=== PATIENT | male | born 1935 | race Caucasian/White ===

== ENCOUNTER 2016-12-07 10:41 | Inpatient (IN) | payer OTHER ==
--- NOTE | 2016-11-03 14:43 | PAT Medication Instructions ---
Service Date Nov 03, 2016. Current Home Medication List Ascorbic Acid (Vitamin C), 2,000 MG PO NOON Aspirin (Aspirin Ec), 81 MG PO QPM B-Complex Vitamins (Vitamin B Complex), 1 TAB PO NOON Coenzyme Q10 (Ubidecarenone) (Coq10), 100 MG PO NOON Cyanocobalamin (Vitamin B12 500MCG), 2,500 MCG PEG NOON Docosahexaenoic Acid (Dha), 1 TAB PEG NOON Dutasteride-Tamsulosin Hcl (Cristiana), 1 CAP PO QAM Fish Oil (Vienna-3), 2 TAB PO NOON Glyburide (Micronase), 5 MG PO BID Lutein (Lutein), 20 MG PO NOON Magnesium Oxide (Mag-Ox), 400 MG PO BID Metformin Hcl (Glucophage), 500 MG PO BID Multivitamin (Multivitamin), 1 TAB PO NOON Omeprazole (Prilosec), 20 MG PO QAM Ramipril (Ramipril), 1 CAP PO QAM Simvastatin (Zocor), 80 MG PO QPM Tadalafil (Cialis), 5 MG PO QPM [Folic Acid], 400 MCG PO NOON [Vitamin D], 400 UNITS PO NOON Medication Instructions For Your Scheduled Surgery - Hold the following medications 2 weeks prior to surgery: Fish Oil (Vienna-3), 2 TAB PO NOON Coenzyme Q10 (Ubidecarenone) (Coq10), 100 MG PO NOON Docosahexaenoic Acid (Dha), 1 TAB PEG NOON - Hold the following medications 48 hours prior to surgery: Metformin Hcl (Glucophage), 500 MG PO BID - Hold the following medications the morning of surgery: Ramipril (Ramipril), 1 CAP PO QAM Dutasteride-Tamsulosin Hcl (Cristiana), 1 CAP PO QAM Glyburide (Micronase), 5 MG PO BID [Folic Acid], 400 MCG PO NOON [Vitamin D], 400 UNITS PO NOON Multivitamin (Multivitamin), 1 TAB PO NOON Magnesium Oxide (Mag-Ox), 400 MG PO BID Ascorbic Acid (Vitamin C), 2,000 MG PO NOON B-Complex Vitamins (Vitamin B Complex), 1 TAB PO NOON Cyanocobalamin (Vitamin B12 500MCG), 2,500 MCG PEG NOON Lutein (Lutein), 20 MG PO NOON - Take the following medications the morning of surgery with a sip of water: Omeprazole (Prilosec), 20 MG PO QAM - Take the following medications as scheduled the night before surgery: Simvastatin (Zocor), 80 MG PO QPM Magnesium Oxide (Mag-Ox), 400 MG PO BID Aspirin (Aspirin Ec), 81 MG PO QPM (okay to continue per surgeon) Tadalafil (Cialis), 5 MG PO QPM If you have any questions please call us at [phone] (Pauline Topete PA-C) or [phone] or [phone]
--- NOTE | 2016-11-03 15:06 | DIAGNOSTIC IMAGING REPORT ---
CHEST 2 VIEWS ROUTINE CLINICAL HISTORY: Preoperative evaluation. COMPARISON STUDY: No previous studies for comparison. FINDINGS: Lung volumes are at the lower limits of normal. There is mild elevation of the right hemidiaphragm. There is no evidence of pulmonary edema. Mild cardiomegaly is noted. Left lower lung retrocardiac opacity likely reflects atelectasis or normal vessels. IMPRESSION: 1. No acute findings. 2. Mild cardiomegaly. 3. Mild elevation of the right hemidiaphragm. Electronically signed by: Juan Arriaga M.D. 11/03/2016 3:04 PM Dictated Date/Time: 11/03/2016 3:03 PM
[2016-11-03 15:15] LABS: BASO % 0.6 %; BASO ABS # 0.03 K/uL (0-0.2); COMPLETE YES; EOS % 4.4 %; HEMATOCRIT 35.6 % (42-52); LYMPH % 26.2 %; LYMPH ABS # 1.32 K/uL (1.2-3.4); MEAN CELL VOLUME 91.5 fL (80-100); MEAN CORPUSCULAR HEMOGLOBIN 33.2 pg (25-34); MEAN CORPUSCULAR HGB CONC 36.2 g/dl (32-36); MEAN PLATELET VOLUME 10.5 fL (7.4-10.4); MONO % 9.9 %; NEUT % 58.9 %; PLATELET COUNT 134 K/uL (130-400); RED BLOOD COUNT 3.89 M/uL (4.7-6.1); WHITE BLOOD COUNT 5.04 K/uL (4.8-10.8)
[2016-11-03 15:24] LABS: BUN/CREATININE RATIO 18.8 (10-20); CALCIUM 9.2 mg/dl (8.5-10.1); CREATININE 1.4 mg/dl (0.60-1.40); POTASSIUM 4.3 mmol/L (3.5-5.1)
[2016-11-03 15:25] LABS: URINE APPEARANCE CLEAR (CLEAR); URINE BILIRUBIN NEG (NEG); URINE COLOR YELLOW; URINE EPITHELIAL CELL AUTO 0-5 /lpf (0-5); URINE NITRITE NEG (NEG); URINE SPECIFIC GRAVITY 1.016 (1.000-1.030); UROBILINOGEN NEG (NEG); ZZUR CULT IF INDIC CLEAN CATCH NO
[2016-11-03 15:26] LABS: PROTHROMBIN TIME (PATIENT) 10.9 SECONDS (9.0-12.0)
[2016-11-03 15:32] LABS: MANUAL MICROSCOPIC REQUIRED? NO; REVIEW REQ? NO
[2016-11-04 05:58] LABS: ESTIMATED AVERAGE GLUCOSE 131 mg/dl; HA1C FLAG Normal (Normal)
--- NOTE | 2016-12-04 11:43 | HISTORY & PHYSICAL EXAMINATION ---
DATE OF ADMISSION: 12/07/2016 CHIEF COMPLAINT: Left knee pain. HISTORY OF PRESENT ILLNESS: Oscar is a 79-year-old male with a multiple year history of pain in his left knee. He rates his pain an 8/10. He has pain with his daily activities. He has limited standing and walking tolerance. Pain is worse with weightbearing. The patient has had injections and Tylenol without relief. He has failed conservative treatment and is scheduled for a left knee replacement. PAST MEDICAL HISTORY: Diabetes with an A1c 5.9, osteoarthritis, acid reflux, chronic kidney disease. He denies heart disease or DVT. PAST SURGICAL HISTORY: Cholecystectomy, hernia repair, partial thyroidectomy. SOCIAL HISTORY: The patient denies alcohol or tobacco use. He lives in a single story home. He is and is retired. FAMILY HISTORY: Negative for DVT. MEDICATIONS: Aspirin 81 mg, simvastatin 80 mg, omeprazole 20 mg, metformin 500 mg b.i.d., Cristiana 0.5/0.4 mg, mag oxide 400 mg b.i.d., ramipril 2.5 mg, glyburide 5 mg, Cialis 5 mg, multivitamin, vitamin C, vitamin D, vitamin B complex, omega 3 fish oil, Lutein, Co-Q 10, folic acid. ALLERGIES: None. REVIEW OF SYSTEMS: See HPI. Ten other systems reviewed, all negative. PHYSICAL EXAMINATION: VITAL SIGNS: Height 5 foot 11, weight 218 pounds, BMI is 30. GENERAL: This is a well-developed, well-nourished male who is alert and oriented x3. Mood and affect are appropriate. HEAD, EYES, EARS, NOSE, AND THROAT: Normocephalic, atraumatic. Mucous membranes are moist and intact. NECK: Supple without lymphadenopathy. HEART: Regular rate and rhythm without murmurs, rubs or gallops. LUNGS: Clear to auscultation without wheezes or rhonchi. ABDOMEN: Soft and nontender. Bowel sounds are equal and active. EXTREMITIES: No ecchymosis, redness or warmth. He has neutral alignment. Range of motion is from 5-115 degrees with +1 laxity. He is neurovascularly intact with +5/5 strength. X-RAY EXAMINATION: AP and lateral views show joint space narrowing and osteophyte formation. IMPRESSION: Degenerative joint disease left knee. PLAN: The patient will be admitted for a left total knee arthroplasty. We will plan on aspirin for DVT prophylaxis. The patient is going to [facility] for outpatient physical therapy.
[~2016-12-07] VITALS: Ht 180.3 cm; Wt 98.4 kg
[2016-12-07] VITALS (7 sets, daily range): BP systolic 117–148; BP diastolic 64–79; PULSE 49–78; TEMP 36.5–36.9; O2SAT 97–99; Ht 180.3 cm; Wt 98.4 kg
[~2016-12-07 10:41] MED LIST: ACETAMINOPHEN 500 MG TAB PO SCH; ASCO10003 PO; ASPI81TA28 PO; B-COTAB18 PO; BUPIVACAINE 0.5 % 5 MG/1 ML PF 10ML VIAL ONE; BUPIVACAINE/EPINEPHRINE 0.25% 1:200,000 30 ML VIAL ONE; CEFAZOLIN 2000 MG/60 ML D5W 60 ML IV SCH; COEN100C7 PO; CYAN500T13 PEG; CeleBREX 200 MG CAP PO SCH; DOCO1CAP10 PEG; DUTACAP PO; FAMOTIDINE 20 MG TAB PO SCH; FOLIC ACID PO; GABAPENTIN 300 MG CAP PO SCH; GLC/500 PO; GLYB5TAB8 PO; LACTATED RINGER'S 1000ML 1,000 ML IV SCH; LUTE20TA PO; MAGN400T6 PO; METOCLOPRAMIDE HCL 10 MG TAB PO SCH; MULT-506 PO; OMEG10007 PO; OXYCODONE HCL 10 MG TABCR (OXYCONTIN) PO SCH; POLYMYXIN B SULFATE 100,000 UNITS in NSS 100ML IR SCH; PRLSR20 PO; RAMI2.5C PO; ROPIVACAINE 5MG/ML 30 ML 150 MG, BUPIVACAINE/EPINEPHR 0.5% MPF 30 ML, KETOROLAC TROMETH... INFIL SCH; SIMV80TA2 PO; TADA10TA PO; TRAMADOL HCL 50 MG TAB PO SCH; VANCOMYCIN INJ 400 MG in NSS 100ML IR SCH; VITAMIN D PO
[2016-12-07] MEDS ORDERED: HYDROmorphone INJ 2 MG/ML SYR/VIAL IV PRN (11:15)
[2016-12-07] MEDS ORDERED: LABETALOL HCL IV 5 MG/ML 20ML IV PRN (11:15)
[2016-12-07] MEDS ORDERED: EpHEDrine SULFATE INJ 50 MG/ML AMP IV PRN (11:15)
[2016-12-07] MEDS ORDERED: NALOXONE HCL 0.4 MG/1 ML VIAL/CARP IV PRN (11:15)
[2016-12-07] MEDS ORDERED: ONDANSETRON INJ 2 MG/ML 2 ML VIAL IV PRN (11:15)
[2016-12-07] MEDS ORDERED: FENTANYL CITRATE INJ 50 MCG/1 ML 2 ML VIAL IV PRN (11:15)
[2016-12-07] MEDS ORDERED: MEPERIDINE HCL 25 MG/ML CARP IV PRN (11:15)
[2016-12-07] MEDS ORDERED: FLUMAZENIL 0.1 MG/1 ML 10 ML VIAL IV PRN (11:15)
[2016-12-07] MEDS ORDERED: PHENYLEPHRINE 100MCG/ML 5ML SYR IV PRN (11:15)
[2016-12-07] MEDS ORDERED: ATROPINE SULFATE 0.1 MG/ML 5ML SYR IV PRN (11:15)
[2016-12-07] MEDS ORDERED: LIDOCAINE HCL 2% 2 ML VIAL (20MG/ML) ONE (11:24)
[2016-12-07] MEDS ORDERED: FENTANYL CITRATE INJ 50 MCG/1 ML 2 ML VIAL ONE (11:24)
[2016-12-07] MEDS ORDERED: MIDAZOLAM HCL 1 MG/ML 2ML VIAL ONE (11:24)
[2016-12-07] MEDS ORDERED: PROPOFOL IV EMULSION 10 MG/ML 20 ML VIAL IV ONE (11:24)
--- NOTE | 2016-12-07 12:04 | History & Physical Bridge Note ---
H&P Re-Evaluation Bridge Note: I have examined the patient, reviewed the History & Physical and in the interval since the performance of the History & Physical I have noted the following changes of clinical significance: No changes noted
[2016-12-07] MEDS ORDERED: POVIDONE-IODINE OP SOLN 30 ML BTL ONE (12:49)
[2016-12-07] MEDS ORDERED: ORTHO JOINT ANESTHETIC ONE (12:49)
[2016-12-07] MEDS ORDERED: BUPIVACAINE/EPINEPHRINE 0.25% 1:200,000 30 ML VIAL ONE (12:49)
[2016-12-07] MEDS ORDERED: BACITRACIN 50000 UNIT VIAL ONE (12:50)
[2016-12-07] MEDS ORDERED: NON-FORMULARY MEDICATION (Lutein 20 MG) PO SCH (14:15)
[2016-12-07] MEDS ORDERED: DiphenhydrAMINE HCL 50 MG/ML VIAL IV PRN (14:15)
[2016-12-07] MEDS ORDERED: ALUMINUM/MAGNESIUM/SIMETH (MAALOX MAX) 30 ML UDC PO PRN (14:15)
[2016-12-07] MEDS ORDERED: MoRPHine SULFATE 2 MG/ML CARP IV PRN (14:15)
[2016-12-07] MEDS ORDERED: MAGNESIUM HYDROXIDE SUSP 30 ML UDC PO PRN (14:15)
[2016-12-07] MEDS ORDERED: METOCLOPRAMIDE HCL INJ 5 MG/ML 2 ML VIAL IV PRN (14:15)
[2016-12-07] MEDS ORDERED: ZOLPIDEM TARTRATE 5 MG TAB PO PRN (14:15)
[2016-12-07] MEDS ORDERED: OXYCODONE HCL IR 5 MG TAB (IMMEDIATE RELEASE) PO PRN (14:15)
[2016-12-07] MEDS ORDERED: SOD PHOSPHATE/SOD BIPHOSPHATE ENEMA 132 ML BTL PR PRN (14:15)
[2016-12-07] MEDS ORDERED: TRAMADOL HCL 50 MG TAB PO PRN (14:15)
[2016-12-07] MEDS ORDERED: BISACODYL 10 MG SUPP PR PRN (14:15)
--- NOTE | 2016-12-07 14:15 | [facility] Post Operative Brief Note ---
Immediate Operative Summary Operative Date Dec 07, 2016. Pre-Operative Diagnosis Left Knee Degenerative Joint Disease Post-Operative Diagnosis Left Knee Degenerative Joint Disease Procedure(s) Performed Left Total Knee Arthroplasty, Cemented Surgeon Dr. Destin Dunham Whiskey Filterer Surgeon(s) Carlton Goncalves PA-C Estimated Blood Loss 75 mL Findings DJD Specimens A: Left Knee Bone and Tissue Complication(s) None Disposition Recovery Room / PACU
[2016-12-07] MEDS ORDERED: HydrALAZINE HCL 20 MG/ML VIAL ONE (14:27)
--- NOTE | 2016-12-07 15:41 | DIAGNOSTIC IMAGING REPORT ---
LEFT KNEE 2 VIEWS History: Left total knee arthroplasty. Degenerative arthritis. Postop. FINDINGS: The patient is status post a left total knee arthroplasty. The hardware is intact. No fracture or dislocation. Surgical drains are in place. IMPRESSION: Left total knee arthroplasty. No evidence for hardware complication. Electronically signed by: Cornel Espinoza M.D. 12/07/2016 3:40 PM Dictated Date/Time: 12/07/2016 3:39 PM
--- NOTE | 2016-12-07 16:02 | Anesthesiology Progress Note ---
Anesthesia Post Op Note Date & Time Dec 07, 2016 at 16:02 Vital Signs Pain Intensity: 0 Vital Signs Past 12 Hours Date Time Temp Pulse Resp B/P Pulse Ox O2 Delivery O2 Flow Rate FiO2 12/07/16 15:50 61 10 101/62 98 Nasal Cannula 2 12/07/16 15:40 52 12 113/71 97 Nasal Cannula 2 12/07/16 15:30 52 16 129/77 99 Nasal Cannula 2 12/07/16 15:20 58 12 108/66 98 Nasal Cannula 2 12/07/16 15:10 59 12 112/65 98 Nasal Cannula 2 12/07/16 15:00 60 10 119/68 98 Nasal Cannula 2 12/07/16 14:54 36.4 65 15 120/67 98 Nasal Cannula 2 12/07/16 11:03 36.9 78 18 146/75 97 Room Air Notes Mental Status: alert / awake / arousable, participated in evaluation Pt Amnestic to Procedure: Yes Nausea / Vomiting: adequately controlled Pain: adequately controlled Airway Patency, RR, SpO2: stable & adequate BP & HR: stable & adequate Hydration State: stable & adequate Neuraxial Anesthesia: was administered, sensory block is resolving Anesthetic Complications: no major complications apparent
[2016-12-07] MEDS: ONDANSETRON INJ 2 MG/ML 2 ML VIAL IV PRN (17:14)
--- NOTE | 2016-12-07 17:30 | OPERATIVE REPORT ---
DATE OF OPERATION: 12/07/2016 PREOPERATIVE DIAGNOSIS: Degenerative arthritis, left knee. POSTOPERATIVE DIAGNOSIS: Same. PROCEDURE: Left total knee with patient matched implant. SURGEON: Dr. Desitn Dunham. HOG CONFINEMENT SYSTEM MANAGER: JAYNE Montes De Oca. ANESTHESIA: Spinal. BLOOD LOSS: 75 mL. REPLACEMENT FLUIDS: 1800 mL of crystalloid. DRAINS: Hemovac x2. CULTURES: None. COMPLICATIONS: None. COMPONENTS USED: [employer] Knee System: Femur size 7, tibia size 5 x 10, and patella size 35. NOTE: JAYNE Montes De Oca was present and assisted throughout due to the complicated nature of this case. He helped with preparation and set up, first assisted throughout and personally closed the capsule, subcutaneous and skin layers and applied the postoperative dressing. DESCRIPTION OF PROCEDURE: Following satisfactory spinal, the patient was supine. A tourniquet was placed, but not inflated. The lower extremity was prepared with ChloraPrep and draped sterilely. Following a surgical time-out, a midline incision was made with a trivector approach. The knee showed grade 4 changes, severe in the medial and patellofemoral compartments. The cruciate ligaments were excised. The patient matched femoral block was applied. Femoral distal rotation and resection were set and completed. The 4-in-1 block was used to finish preparation of the femur. The patient matched tibial block was applied. Tibial resection was completed. The patella was freehand cut. Soft tissue balancing was completed and a trial reduction showed good tensioning stability on the collateral ligaments, stable range of motion, and the patella tracked well. The trial components were removed. The capsule was prepared with the orthopedic cocktail and after irrigation, the components were cemented with Simplex G cement. When the cement had hardened, the knee was checked and showed good stability. After irrigation, 2 drains were placed. The arthrotomy was closed with a running suture of 0 V-Loc, the subcutaneous tissues with 2-0 Vicryl and the skin with a running subcuticular stitch of 3-0 V-Loc. Dermabond and a dry dressing was applied. The patient was returned to his bed in stable condition. I attest to the content of the Intraoperative Record and any orders documented therein. Any exceptio ns are noted below.
[2016-12-07] MEDS: TRANEXAMIC ACID INJ 1,000 MG in SODIUM CHLORIDE 0.9% 100ML 100 ML IV SCH ×2 (17:42→17:43)
[2016-12-07] MEDS: SODIUM CHLORIDE 0.9% 1000ML 1,000 ML IV SCH (17:59)
[2016-12-07] MEDS ORDERED: TRANEXAMIC ACID INJ 1,000 MG in SODIUM CHLORIDE 0.9% 100ML 100 ML IV SCH (21:00)
[2016-12-07] MEDS ORDERED: SIMVASTATIN 80 MG TAB PO SCH (21:00)
[2016-12-07] MEDS ORDERED: SENNA 8.6 MG TAB PO SCH (21:00)
[2016-12-07] MEDS: OXYCODONE HCL 10 MG TABCR (OXYCONTIN) PO SCH (21:46)
[2016-12-07] MEDS: ASPIRIN 81 MG ECTAB PO SCH (21:47)
[2016-12-07] MEDS: MAGNESIUM OXIDE 400 MG TAB PO SCH (21:47)
[2016-12-07] MEDS: ACETAMINOPHEN 500 MG TAB PO SCH (21:47)
[2016-12-07] MEDS ORDERED: PNEUMOCOCCAL ADMINISTRATION CHARGE ONE (22:00)
[2016-12-07] MEDS ORDERED: PNEUMOCOCCAL POLYSACCHARIDES 25 MCG/0.5 ML VIAL/SYR IM. ONE (22:00)
[2016-12-07] MEDS: CEFAZOLIN IV 2,000 MG in DEXTROSE 5% 50ML 50 ML IV SCH (22:11)
[2016-12-08] MEDS: SODIUM CHLORIDE 0.9% 1000ML 1,000 ML IV SCH ×2 (03:31→13:30)
[2016-12-08 04:03] VITALS: BP 124/67; PULSE 55; TEMP 36.4; O2SAT 98
[2016-12-08] MEDS: CEFAZOLIN IV 2,000 MG in DEXTROSE 5% 50ML 50 ML IV SCH (05:47)
[2016-12-08] MEDS: ACETAMINOPHEN 500 MG TAB PO SCH (05:47)
[2016-12-08 06:17] LABS: HEMATOCRIT 32.5 % (42-52); MEAN CELL VOLUME 88.8 fL (80-100); MEAN PLATELET VOLUME 10.6 fL (7.4-10.4); PLATELET COUNT 127 K/uL (130-400); RED BLOOD COUNT 3.66 M/uL (4.7-6.1); WHITE BLOOD COUNT 7.21 K/uL (4.8-10.8)
[2016-12-08 06:48] LABS: BUN/CREATININE RATIO 23.5 (10-20); CALCIUM 8.3 mg/dl (8.5-10.1); CREATININE 1.4 mg/dl (0.60-1.40); POTASSIUM 4.7 mmol/L (3.5-5.1)
[2016-12-08 07:06] VITALS: BP 104/59; PULSE 66; TEMP 36.7; O2SAT 95
--- NOTE | 2016-12-08 07:46 | Orthopedic Progress Note ---
Orthopedic Progress Note Date of Service Dec 08, 2016. Subjective Post OP Day: 1 Reports: feeling well, Denies: SOB, calf pain, chest pain, light headedness, nausea / vomiting Objective calves soft nontender, N/V intact, dressing C/D/I, A&O x3, toes mobile, hemovac drainage (150/50cc per shift) Date Time Temp Pulse Resp B/P Pulse Ox O2 Delivery O2 Flow Rate FiO2 12/08/16 07:06 36.7 66 19 104/59 95 Room Air 12/08/16 04:03 36.4 55 18 124/67 98 Room Air 12/08/16 00:00 Room Air 12/07/16 23:25 36.6 62 18 117/64 97 Room Air 12/07/16 19:44 36.5 49 18 143/75 99 Nasal Cannula 2.0 12/07/16 18:45 36.5 51 18 135/77 99 Nasal Cannula 2.0 12/07/16 17:46 36.5 50 18 136/68 98 Nasal Cannula 2.0 12/07/16 17:15 36.5 64 16 148/79 98 Nasal Cannula 2.0 12/07/16 16:45 36.9 57 16 125/73 99 Nasal Cannula 2.0 12/07/16 16:45 99 Nasal Cannula 2.0 12/07/16 16:45 Nasal Cannula 2.0 12/07/16 16:30 63 12 108/56 97 Nasal Cannula 2 12/07/16 16:15 58 12 108/56 98 Nasal Cannula 2 12/07/16 16:00 36.0 58 14 115/64 97 Nasal Cannula 2 12/07/16 15:50 61 10 101/62 98 Nasal Cannula 2 12/07/16 15:40 52 12 113/71 97 Nasal Cannula 2 12/07/16 15:30 52 16 129/77 99 Nasal Cannula 2 12/07/16 15:20 58 12 108/66 98 Nasal Cannula 2 12/07/16 15:10 59 12 112/65 98 Nasal Cannula 2 12/07/16 15:00 60 10 119/68 98 Nasal Cannula 2 12/07/16 14:54 36.4 65 15 120/67 98 Nasal Cannula 2 12/07/16 11:03 36.9 78 18 146/75 97 Room Air Laboratory Results 24 Hours: Test 12/08/16 05:49 Hematocrit 32.5 % Hemoglobin 11.7 g/dL Assessment & Plan Assessment: POD#1 sp left TKA Inhouse Planning Pain Management: Celebrex, Oxycontin, PO Tylenol, Oxy IR DVT Prophylaxis: TEDs, SCDs, ASA Discharge Planning Discharge Planning: home with oppt (dc home today)
--- NOTE | 2016-12-08 07:47 | Discharge Instructions ---
Discharge Instructions Admission Reason for Admission: Left Knee Degenerative Arthritis Discharge Discharge Diagnosis / Problem: sp left TKA Discharge Goals Goal(s): Decrease discomfort, Improve function, Increase independence Activity Recommendations Activity Limitations: per Instructions/Follow-up section . Instructions / Follow-Up Instructions / Follow-Up ACTIVITY RECOMMENDATIONS: SELF CARE INSTRUCTIONS AFTER TOTAL KNEE REPLACEMENT A. You may need to continue a physical therapy program after discharge from the hospital. There are several options available to you. Your doctor will assist you in selecting the best one for you. 1. An out-patient facility 2 to 3 times a week for therapy or home therapy. 2. Continue working on all exercises taught to you in the hospital. Your goals should be to increase bending of your knee to 90 degrees and beyond and to fully straighten your knee. B. You may progress at your own pace from walking with a walker or crutches to a cane; then to no assistive devices. C. Make walking a part of your daily routine. Be up as much as comfortable with rest periods throughout the day. Rest with leg elevation is very important. Use the ice wrap frequently for the first 3-4 weeks. D. There are no restrictions on activities. You may ride in a car, shop, participate in plaster mechanic and all social activities. E. Wear the long elastic stockings (ZACHARIAH hose) 20 hours a day for 2 weeks after surgery. They can be removed several times a day for laundering and for a bath. F. You may shower, no tub baths until cleared by your doctor. SPECIAL CARE INSTRUCTIONS: VERY IMPORTANT TO READ AND REVIEW A. There are a few signs you need to watch for after you are home. Call [facility] if you notice any of the followin. Increased severe knee pain. Some pain is expected especially when you exercise. 2. Increased swelling in your leg or knee; pain or swelling of the calf muscle in either lower leg. 3. Any fluid drainage from the incision. 4. Shortness of breath or chest pain. B. Please call [facility] at if you have any concerns or questions about your operation or recovery. The doctor or his nurse will return your call promptly. C. You must take antibiotics before dental work, bladder, bowel or other surgery. Your doctor will provide you with a permanent care to carry describing this precaution. IMPORTANT: * REMEMBER TO TAKE ASPIRIN, 81 MG, TWICE DAILY FOR 4 WEEKS UNLESS OTHERWISE DIRECTED. THIS IS YOUR BLOOD THINNER. * HIGH RISK PATIENTS MAY BE PRESCRIBED A STRONGER BLOOD THINNER. THIS WILL BE PROVIDED AT DISCHARGE. * CALL IF INCREASED PAIN, REDNESS, DRAINAGE OR FEVER GREATER THAT 101. * WEAR ZACHARIAH HOSE 20 HOURS PER DAY FOR 2 WEEKS. DERMABOND Prineo- This is a mesh tape dressing that is covered with glue. It should remain in place until the incision is properly healed, usually 10-14 days. This dressing is designed to naturally slough off. You may trim the excess mesh tape as it peels off. Incision may be briefly wet in a shower. Dry immediately by blotting with a clean, dry towel. Do not bath or swim until instructed by your doctor. Do not scratch, rub, or pick at the dressing. Do not apply any topical ointments or lotions until dressing is completely removed and/or instructed by your doctor. There may be a small piece of suture material at one end of your incision. Do not pull or trim this. If it is bothersome or catching on clothing, you may cover it with a band-aid. FOLLOW UP VISIT: If appointment is not already scheduled: Please call [facility] to make a follow-up appointment for 2 weeks after your surgery at . Current Hospital Diet Patient's current hospital diet: Diabetes Type 2 Diet Discharge Diet Recommended Diet: Diabetes Type 2 Diet Procedures Procedures Performed: Left Total Knee Arthroplasty, Cemented Pending Studies Studies pending at discharge: no Laboratory Results Hemoglobin A1c Test 11/03/16 14:46 Range/Units Estimated Average Glucose 131 mg/dl Hemoglobin A1c 6.2 H 4.5-5.6 % Medical Emergencies . Who to Call and When: Medical Emergencies: If at any time you feel your situation is an emergency, please call 911 immediately. . Non-Emergent Contact Non-Emergency issues call your: Primary Care Provider . "Provider Documentation" section prepared by Claribel Collins. VTE Core Measure Inpt VTE Proph given/why not?: Other Anticoagulation, T.E.D. Stockings, SCD's
[2016-12-08] MEDS ORDERED: ASPI81TA28 PO (07:49)
[2016-12-08] MEDS ORDERED: MORP-157 PO (07:50)
[2016-12-08] MEDS ORDERED: SNK PO (07:50)
[2016-12-08] MEDS ORDERED: RXC5 PO (07:50)
[2016-12-08] MEDS ORDERED: ONDA8TAB6 PO (07:50)
--- NOTE | 2016-12-08 08:05 | Anesthesiology Progress Note ---
Anesthesia Post Op Note Date & Time Dec 08, 2016 at 08:04 Vital Signs Pain Intensity: 0.0 Vital Signs Past 12 Hours Date Time Temp Pulse Resp B/P Pulse Ox O2 Delivery O2 Flow Rate FiO2 12/08/16 07:06 36.7 66 19 104/59 95 Room Air 12/08/16 04:03 36.4 55 18 124/67 98 Room Air 12/08/16 00:00 Room Air 12/07/16 23:25 36.6 62 18 117/64 97 Room Air Notes Mental Status: alert / awake / arousable, participated in evaluation Pt Amnestic to Procedure: Yes Nausea / Vomiting: adequately controlled Pain: adequately controlled Airway Patency, RR, SpO2: stable & adequate BP & HR: stable & adequate Hydration State: stable & adequate Neuraxial Anesthesia: sensory block resolved Anesthetic Complications: no major complications apparent
[2016-12-08] MEDS ORDERED: ACET-1138 PO (08:20)
[2016-12-08] MEDS: ONDANSETRON INJ 2 MG/ML 2 ML VIAL IV PRN (08:40)
[2016-12-08] MEDS: MAGNESIUM OXIDE 400 MG TAB PO SCH (08:43)
[2016-12-08] MEDS: ASPIRIN 81 MG ECTAB PO SCH (08:44)
[2016-12-08] MEDS: OXYCODONE HCL 10 MG TABCR (OXYCONTIN) PO SCH (08:46)
[2016-12-08] MEDS ORDERED: PANTOprazole SOD 40 MG TAB PO SCH (09:00)
[2016-12-08] MEDS ORDERED: MULTIVITAMIN TAB PO SCH (09:00)
[2016-12-08 10:45] VITALS: BP 104/59; PULSE 66; TEMP 36.7; O2SAT 95
[2016-12-08 11:08] VITALS: BP 144/72; PULSE 71; TEMP 36.6; O2SAT 98
[2016-12-08] MEDS ORDERED: FoLIC ACID TAB 400 MCG TAB PO SCH (12:00)
[2016-12-08] MEDS ORDERED: CHOLECALCIFEROL 400 INTER.UNIT TAB PO SCH (12:00)
[2016-12-08] MEDS ORDERED: ASCORBIC ACID 500 MG TAB PO SCH (12:00)
[2016-12-08] MEDS ORDERED: CYANOCOBALAMIN 500 MCG TAB (VIT B-12) PO SCH (12:30)
[2016-12-08] MEDS ORDERED: CYANOCOBALAMIN 500 MCG TAB (VIT B-12) PEG SCH (12:30)
--- NOTE | 2016-12-10 15:45 | DISCHARGE SUMMARY ---
DISCHARGE DIAGNOSIS: Degenerative joint disease left knee. SECONDARY DIAGNOSES: Diabetes mellitus, osteoarthritis, gastroesophageal reflux disease, chronic kidney disease. CONSULTS: None. COMPLICATIONS: None. PROCEDURES: Left total knee arthroplasty performed by Dr. Destin Dunham on 12/07/2016. BRIEF HISTORY: As dictated in the history and physical. HOSPITAL SUMMARY: The patient was admitted on the above noted date and had the above noted surgery performed which he tolerated well. On the first postoperative day, patient was feeling well and had no complaints. Calves were soft, nontender, neurovascularly intact. Dressings were clean, dry and intact. Toes were mobile and vital signs were stable and he was afebrile. Hemoglobin was 11.7 and he was started on physical therapy protocol and continued on DVT prophylaxis and pain management. In physical therapy, he had obtained 115 degrees of flexion and was ambulating 300 feet with a standard walker and was remaining stable. He was otherwise progressing well and was felt that he could be discharged to home on 12/08/2016. For further review, please see chart. LAB AND X-RAY DATA: As per chart. DISCHARGE INSTRUCTIONS: The patient was discharged to home in satisfactory condition on 12/08/2016. DIET: Diabetic. ACTIVITY: Follow TKA instruction sheets and special care instructions as noted and follow up with Dr. Destin Dunham in 2 weeks. The patient to call for appointment if one has not been made for him. DISCHARGE MEDICATIONS: Acetaminophen 1000 mg p.o. q. 8 hours, MS Contin 15 mg p.o. q. 12 hours, Zofran 8 mg p.o. q. 8 hours p.r.n. nausea, oxycodone 5-10 mg p.o. q. 4 hours p.r.n., senna 17.2 mg p.o. at bedtime. Resume home meds including vitamin C 2000 mg p.o. at noon, vitamin B complex 1 tab p.o. at noon, CoQ10 100 mg p.o. at noon, vitamin B12 2500 mcg at noon, DHA 1 tab at noon, Cristiana 1 cap p.o. q.a.m., fish oil 2 tabs p.o. at noon, glyburide 5 mg p.o. b.i.d., Lutein 20 mg p.o. at noon, magnesium oxide 400 mg p.o. b.i.d., metformin 500 mg p.o. b.i.d., multivitamin 1 tab p.o. at noon, omeprazole 20 mg p.o. q.a.m., ramipril 1 cap p.o. q.a.m., simvastatin 80 mg p.o. q.p.m., Cialis 5 mg p.o. q.p.m., folic acid 400 mcg p.o. at noon, vitamin D 400 units p.o. at noon, aspirin 81 mg p.o. b.i.d. for 30 days after 30 days resume once daily dosing.
== END 2016-12-08 14:15 | disposition home or self-care (01) | DRG 470 ==
LOC: ENRESERVTM → ENRESERVDT → C.ACU 10:41 → C.3E 11:30
PROVIDERS: ADMIT Orthopaedic Surgery; ATTEND Orthopaedic Surgery
PROC: 0SRD0J9 Replacement of Left Knee Joint with Synthetic Substitute, Cemented, Open Approach (ICD-10-PCS; principal; 2016-12-07 12:45)
DX: M17.12 Unilateral primary osteoarthritis, left knee (principal); E11.22 Type 2 diabetes mellitus with diabetic chronic kidney disease; I12.9 Hypertensive chronic kidney disease with stage 1 through stage 4 chronic kidney disease, or unspecified chronic kidney disease; E78.5 Hyperlipidemia, unspecified; K21.9 Gastro-esophageal reflux disease without esophagitis; N18.9 Chronic kidney disease, unspecified; N40.0 Benign prostatic hyperplasia without lower urinary tract symptoms; I87.2 Venous insufficiency (chronic) (peripheral); E66.9 Obesity, unspecified; Z68.30 Body mass index [BMI] 30.0-30.9, adult; Z23 Encounter for immunization; Z87.891 Personal history of nicotine dependence; Z79.82 Long term (current) use of aspirin; Z79.84 Long term (current) use of oral hypoglycemic drugs; Z79.899 Other long term (current) drug therapy

== ENCOUNTER → 2017-05-25 | Outpatient (CLI) | payer OTHER ==
[~2017-05-25] MED LIST changes: +ACET-1138 PO; -ACETAMINOPHEN 500 MG TAB PO SCH; -BUPIVACAINE 0.5 % 5 MG/1 ML PF 10ML VIAL ONE; -BUPIVACAINE/EPINEPHRINE 0.25% 1:200,000 30 ML VIAL ONE; -CEFAZOLIN 2000 MG/60 ML D5W 60 ML IV SCH; -CeleBREX 200 MG CAP PO SCH; -FAMOTIDINE 20 MG TAB PO SCH; -GABAPENTIN 300 MG CAP PO SCH; -LACTATED RINGER'S 1000ML 1,000 ML IV SCH; -METOCLOPRAMIDE HCL 10 MG TAB PO SCH; +ONDA8TAB6 PO; -OXYCODONE HCL 10 MG TABCR (OXYCONTIN) PO SCH; -POLYMYXIN B SULFATE 100,000 UNITS in NSS 100ML IR SCH; -ROPIVACAINE 5MG/ML 30 ML 150 MG, BUPIVACAINE/EPINEPHR 0.5% MPF 30 ML, KETOROLAC TROMETH... INFIL SCH; +RXC5 PO; +SNK PO; -TRAMADOL HCL 50 MG TAB PO SCH; -VANCOMYCIN INJ 400 MG in NSS 100ML IR SCH
--- NOTE | 2017-05-25 18:20 | DIAGNOSTIC IMAGING REPORT ---
LEFT VENOUS DOPP LOWER EXT UNILAT CLINICAL HISTORY: R/O DVT, LEG PAIN AND SWELLING pain. Edema. TECHNIQUE: Venous Doppler COMPARISON STUDY: None FINDINGS: Normal study IMPRESSION: Normal study The above report was generated using voice recognition software. It may contain grammatical, syntax or spelling errors. Electronically signed by: Thanh Healy M.D. 05/25/2017 6:18 PM Dictated Date/Time: 05/25/2017 6:18 PM
== END | disposition home or self-care (01) ==
LOC: C.ULTR 17:45
PROVIDERS: ATTEND Orthopaedic Surgery Sports Medicine
DX: M79.89 Other specified soft tissue disorders (principal); M79.605 Pain in left leg

== ENCOUNTER 2025-06-07 13:00 | Inpatient (IN) ==
[2025-06-07 15:22] LABS: Hematocrit (blood only) 34.1 % (42.0-52.0); Hemoglobin 11.4 g/dl (14.0-18.0); Immature Granulocytes # (auto) 0.01 K/uL (0.01-0.20); Immature Granulocytes % (auto) 0.1 %; Mean Corpuscular Hemoglobin 31.7 pg (25.0-34.0); Mean Corpuscular Volume 94.7 fL (80.0-100.0); Platelet Count 186 K/uL (130-400); RDW Standard Deviation 52.1 fL (36.4-46.3); Red Blood Count 3.60 M/uL (4.70-6.10); White Blood Count 7.27 K/ul (4.8-10.8)
[2025-06-07 15:39] LABS: Alanine Aminotransferase 14 U/L (7-52); Albumin Globulin Ratio 1.1 (0.9-2); Albumin Level 3.6 gm/dl (3.4-5.0); Alkaline Phosphatase 74 U/L (34-104); Anion Gap 5 (3-11); Bilirubin,Total 0.8 mg/dl (0.2-1.0); Blood Urea Nitrogen 39 mg/dl (6-23); Calcium 9.3 mg/dl (8.6-10.3); Carbon Dioxide 29 mmol/L (21-32); Chloride 99 mmol/L (98-107); Globulin 3.4 gm/dl (2.5-4.0); Glucose 145 mg/dl (70-99(Fasting)); Potassium 4.2 mmol/L (3.5-5.1); Sodium 133 mmol/L (136-145); Total Protein 7.0 gm/dl (6.0-8.3)
--- NOTE | 2025-06-07 16:34 | XRay Report ---
Chest radiograph, one view History: Shortness of breath Comparison: 07/15/2021 Findings: Single AP view of the chest performed. No focal consolidation or pleural effusion. No pneumothorax. The cardiomediastinal silhouette is within normal limits. Normal pulmonary vascularity. No evidence for lymphadenopathy. No visualized bony or soft tissue abnormality. Impression: Normal chest radiograph Electronically signed by Mike Rizvi 06-07-2025 4:33 PM
[2025-06-07] MEDS: LIDOCAINE 2% JELLY 5 ML TUBE EXT ONE (16:37)
[2025-06-07] MEDS: CEFEPIME 2000MG 2,000 MG/20 ML SYR IV STA (16:37)
[2025-06-07] MEDS: SODIUM CHLORIDE 0.9% 1,000 ML IV ONE (16:38)
--- NOTE | 2025-06-07 17:08 | Emergency Department Note ---
Impression & Plan Complicated urinary tract infection, Urinary retention due to benign prostatic hyperplasia, ROGER (acute kidney injury), Ambulatory dysfunction, Acute hyponatremia ED Provider Note NAME: BELKIS JONES AGE: 89 SEX: M : 1935 ARRIVES VIA: Walk-In INFORMANT: Patient, ED PROVIDER(S): Mor Mascorro DO CHIEF COMPLAINT: UTI symptoms HPI: This is a 89-year-old male with the PMHx of BPH, urinary retention with recent urethral catheter placement , DM2, pAfib s/p Watchman procedure and CKD presenting to [facility] for further evaluation of weakness and ongoing UTIs. Patient is accompanied by who provide additional history. The patient reports that he has had ongoing recurrent UTIs over the last 6 weeks. He has been on 4 rounds of antibiotics. Appears to be on Bactrim at this time. He follows with [facility] urology. Had a urethral catheter placed yesterday. Does not feel that it is working appropriately per patient. He notes poor p.o. intake. Patient also notes that he has been vomiting. He has significant weakness and unable to perform ADLs without significant assistance by his . They report that urinary retention is a chronic issue. states he is unsafe to return home. They deny fever or chills. No cough or congestion. Denies chest pain or palpitations. No shortness of breath. They deny abdominal pain. No recent changes in bowel movements. Patient denies recent changes in medications or OTC supplements. Patient offers no other complaints, today. ADDITIONAL HISTORY OBTAINED: Per HPI Chronic Medical/Social Conditions Affecting Care: Per HPI PAST MEDICAL HISTORY: See Below PAST SURGICAL HISTORY: See Below FAMILY HISTORY: See Below SOCIAL HISTORY: See Below HOME MEDICATIONS: See Below ALLERGIES: See Below VITALS: See Below PHYSICAL EXAMINATION: GENERAL: Sitting up in bed, alert, well appearing, well nourished, no distress, non-toxic EYE EXAM: normal conjunctiva. PERRL and EOM's grossly intact. OROPHARYNX: no exudate, no erythema, lips, buccal mucosa, and tongue normal and mucous membranes are dry NECK: supple, no nuchal rigidity, no adenopathy, non-tender LUNGS: Clear to auscultation. Normal chest wall mechanics HEART: no murmurs, regular rate, regular rhythm ABDOMEN: abdomen soft, non-tender, no masses, no rebound or guarding. BACK: Back is symmetrical on inspection and there is no deformity, no midline tenderness, no CVA tenderness. SKIN: no rashes and no bruising UPPER EXTREMITIES: upper extremities are grossly normal. LOWER EXTREMITIES: No pitting edema. NEURO EXAM: Normal sensorium, GCS 15, normal speech, no gross weakness of arms, no gross weakness of legs. MEDICAL DECISION MAKING: Differential diagnoses includes but not limited to complicated UTI, infected nephrolithiasis, pyelonephritis, renal abscess, intra-abdominal abscess, diverticulitis, electrolyte derangements, prostatitis, kidney dysfunction, dehydration In summary, this is a 89 year old male who presented with severe weakness with recurrent UTIs. Differential as above. Nursing notes and pertinent past medical records reviewed. Vital signs reviewed and the patient is afebrile and HDS. History and presentation revealed patient has had a complicated history of the last 6 weeks with multiple admissions. Patient has had recurrent UTIs. Admissions have been in outside hospitals. Follows with urology as an outpatient. Does have a culture from urine prior to Adan catheter placement that I reviewed. This is showing Pseudomonas. Patient continues to have recurrent UTIs. He is overall ill-appearing and very weak. Struggling to perform ambulation and ADLs per . Patient will require admission but we will look into his recurrent UTI further. Will provide IV antibiotics with IV cefepime given Pseudomonas culture. Plan for CT abdomen/pelvis for further characterization of possible complications as it relates to recurrent UTI. Would investigate further for nephrolithiasis, pyelonephritis or possible intra- abdominal abscess. Will provide IV fluid resuscitation as he appears hypovolemic. Diagnostics interpreted by me include EKG and cardiac monitoring as listed below: -Cardiac Monitoring: An order was placed for continuous cardiac monitoring. The monitor shows a rate of 60-90s with regular rhythm. -ECG: EKG independently interpreted by me reveals rate controlled atrial fibrillation at [address] segment changes to suggest STEMI. Patient completed laboratory studies and imaging. XR independently interpreted by me reveals no evidence of focal consolidation to suggest pna. No large pneumothorax or pleural effusion. Results independently interpreted by me are no significant leukocytosis. Mild anemia from prior. Does have an ROGER. Procalcitonin is normal normal. No significant elevation in LFTs or lipase. Patient's urinalysis is pending. We did exchange Adan catheter. Plan for CT abdomen/pelvis for further characterization. I reviewed prior urine culture from recent urology visit. This was prior to urethral catheter placement. He is growing Pseudomonas. Will cover if IV cefepime.The patient was managed with IV cefepime and hydration. He required no pain medications or antiemetics. CT abdomen/pelvis was independently interpreted by me is negative for pyelonephritis or obstructing nephrolithiasis. Please note, the patient's vital signs and laboratory workup today do not demonstrate any criteria to meet SIRS response. Do not feel the patient is bacteremic at this time. Blood cultures were not ordered. Ultimately, the decision was made to admit the patient for complicated UTI and severe weakness c/b ambulatory dysfunction and difficulty performing ADLs. It was recommended to admit this patient at 1819. I discussed the case with the hospitalist service via telephone/TigerText and they are agreeable to admit the patient to their services. Based on the above, including the patient's age, coexisting illnesses, labs, imaging, and exam findings the decision to treat as an inpatient. I discussed the patient with the hospitalist team who recommended admission to their services. They received the medications, treatments, interventions indicated above and their condition remained stable. I discussed my findings with the patient and their family and they understand and agree with the treatment plan. All patient / family questions were answered to their satisfaction. Consults/Care Managements Discussions: Per MDM ER treatment provided: See above Procedures:none Critical Care: None The chart was completed utilizing [employer] Speech voice recognition software. Grammatical errors, random word insertions, pronoun errors, and incomplete sentences are an occasional consequence of this system due to software limitations, ambient noise, and hardware issues. Any formal questions or concerns about the content, text, or information contained within the body of this dictation should be directly addressed to the physician for clarification. Past Med/Surg History Problem List (Updated 06/08/25 @ 04:02 by Mor Mascorro DO) Acute hyponatremia (Acute) Ambulatory dysfunction (Acute) ROGER (acute kidney injury) (Acute) Complicated urinary tract infection (Acute) Pleural effusion Urinary tract infection Acute kidney injury UTI symptoms Chronic kidney disease Stage III Encounter for pre-operative examination Post-operative state Impotence, organic (Acute) Hematuria (Acute) Type 2 diabetes mellitus (Acute) Benign localized hyperplasia of prostate with urinary obstruction (Acute) Back pain (Acute) Urinary retention due to benign prostatic hyperplasia (Acute) Medical History Degenerative disc disease Arthritis Urinary retention BPH (benign prostatic hyperplasia) GERD (gastroesophageal reflux disease) Barretts esophagus Diabetes mellitus, type 2 NIDDM Hypertension Hyperlipidemia Surgical History History of herniorrhaphy x2 History of total knee replacement Left History of colonoscopy History of esophagogastroduodenoscopy (EGD) H/O partial thyroidectomy Benign lump removal History of tooth extraction History of cataract surgery R/L Hx of cholecystectomy Family History Father Cardiac disorder Brother Family history of diabetes mellitus Other No family history of adverse response to anesthesia Social History Smoking Status: Never smoker Second Hand Exposure: No; Do You Dip or Chew Tobacco: No; Hx Alcohol Use: No Hx Substance Use: No Preferred Language: Trinidadian Communication Ability: Effective Medical Laboratory Technicians Required: No Beliefs That Will Affect Care: Yazidism Yazidism Beliefs: SYNAGOGUE marital status: Current Living Situation: Spouse current occupational status: retired Feels Safe at Home: Yes Safety Concerns: Feels Safe At This Time Assistive Devices: Walker Allergies Allergies Allergy/AdvReac Type Severity Reaction Status Date / Time No Known Allergies Allergy Unverified 06/07/25 18:52 Home Meds Home Medications Medication Instructions Recorded Confirmed magnesium oxide 400 mg PO BID 07/14/21 06/07/25 multivitamin 1 tab PO QAM 07/14/21 06/07/25 pioglitazone 45 mg tablet 45 mg PO QAM 07/14/21 06/07/25 atorvastatin 40 mg tablet 40 mg PO DAILY 12/02/22 06/07/25 furosemide 20 mg tablet 20 mg PO DAILY 12/02/22 06/07/25 semaglutide 7 mg tablet (Rybelsus) 7 mg PO DAILY 12/02/22 06/07/25 aspirin 81 mg tablet 81 mg PO DAILY 05/09/25 06/07/25 clopidogrel 75 mg tablet (Plavix) 0 mg PO DAILY 05/09/25 06/07/25 bupropion HCl 150 mg 24 hr tablet, 150 mg PO QAM 06/07/25 06/07/25 extended release (Wellbutrin XL) bupropion HCl 300 mg 24 hr tablet, 300 mg PO QAM 06/07/25 06/07/25 extended release (Wellbutrin XL) methenamine hippurate 1 gram tablet 0 g PO BID 06/07/25 06/07/25 metoprolol succinate 50 mg 50 mg PO DAILY 06/07/25 06/07/25 tablet,extended release 24 hr omeprazole 20 mg capsule,delayed 20 mg PO BID 06/07/25 06/07/25 release Previous Rx's Medication Instructions Recorded dutasteride 0.5 mg capsule 0.5 mg PO DAILY #90 caps 08/29/24 tadalafil 5 mg tablet 5 mg PO DAILY BPH w/ urinary 08/29/24 obstruction; impotence, 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 sulfamethoxazole 800 1 tab PO BID #30 tabs 06/06/25 mg-trimethoprim 160 mg tablet (Bactrim DS) Results & Data (ED) Vital Signs Vital Signs - 24 hr 06/07/25 13:18 06/07/25 14:52 06/07/25 15:31 Temperature 36.9 C Temperature Source Temporal Artery Scan Oral Pulse Rate 90 76 Pulse Rate [Right Finger] 78 Pulse Rate from SpO2 Sensor Pulse Rhythm [Right Finger] Regular Respiratory Rate 18 17 Respiratory Effort / Characteristics Non-Labored Spontaneous Non-Labored Respiratory Depth Normal Normal Respiratory Pattern Regular Regular Blood Pressure 109/67 Blood Pressure [Right Arm] 116/66 Blood Pressure Mean 81 Blood Pressure Mean [Right Arm] 82 Blood Pressure Position [Right Arm] Lying Pulse Oximetry 93 97 Oxygen Delivery Method Room Air Room Air Sepsis Recent Fever Within 48 Hours No Sepsis New/Unexplained Change in Mental Status N/A Sepsis Action Taken by Nursing No Action Required 06/07/25 16:00 06/07/25 17:00 06/07/25 17:30 Temperature Temperature Source Pulse Rate 67 Pulse Rate [Right Finger] 93 H 74 Pulse Rate from SpO2 Sensor 65 Pulse Rhythm [Right Finger] Respiratory Rate 18 18 14 Respiratory Effort / Characteristics Respiratory Depth Respiratory Pattern Blood Pressure Blood Pressure [Right Arm] 126/68 Blood Pressure Mean Blood Pressure Mean [Right Arm] 87 Blood Pressure Position [Right Arm] Pulse Oximetry 94 97 98 Oxygen Delivery Method Room Air Room Air Sepsis Recent Fever Within 48 Hours Sepsis New/Unexplained Change in Mental Status Sepsis Action Taken by Nursing 06/07/25 18:30 06/07/25 18:53 06/07/25 19:03 Temperature Temperature Source Pulse Rate 67 74 74 Pulse Rate [Right Finger] Pulse Rate from SpO2 Sensor 72 Pulse Rhythm [Right Finger] Respiratory Rate 17 18 Respiratory Effort / Characteristics Respiratory Depth Respiratory Pattern Blood Pressure 119/61 Blood Pressure [Right Arm] Blood Pressure Mean 80 Blood Pressure Mean [Right Arm] Blood Pressure Position [Right Arm] Pulse Oximetry 95 95 Oxygen Delivery Method Sepsis Recent Fever Within 48 Hours Sepsis New/Unexplained Change in Mental Status Sepsis Action Taken by Nursing 06/07/25 19:33 06/07/25 20:00 Temperature Temperature Source Pulse Rate 75 75 Pulse Rate [Right Finger] Pulse Rate from SpO2 Sensor Pulse Rhythm [Right Finger] Respiratory Rate 16 18 Respiratory Effort / Characteristics Respiratory Depth Respiratory Pattern Blood Pressure 123/74 126/88 Blood Pressure [Right Arm] Blood Pressure Mean 90 100 Blood Pressure Mean [Right Arm] Blood Pressure Position [Right Arm] Pulse Oximetry 95 96 Oxygen Delivery Method Sepsis Recent Fever Within 48 Hours Sepsis New/Unexplained Change in Mental Status Sepsis Action Taken by Nursing Laboratory Data 06/07/25 15:10 06/07/25 15:10 Lab Results 06/07/25 06/07/25 Range/Units 15:10 15:11 WBC 7.27 (4.8-10.8) K/ul RBC 3.60 L (4.70-6.10) M/uL Hgb 11.4 L (14.0-18.0) g/dl Hct 34.1 L (42.0-52.0) % MCV 94.7 (80.0-100.0) fL MCH 31.7 (25.0-34.0) pg MCHC 33.4 (32.0-36.0) g/dL RDW Std Deviation 52.1 H (36.4-46.3) fL RDW Coeff of Evelio 15.1 H (11.5-14.5) % Plt Count 186 (130-400) K/uL MPV 9.4 (9.4-12.4) fL Immature Gran % (Auto) 0.1 % Neut % (Auto) 72.0 % Lymph % (Auto) 14.9 % Archer % (Auto) 10.5 % Eos % (Auto) 1.9 % Baso % (Auto) 0.6 % Neut # (Auto) 5.24 (1.40-6.50) K/uL Lymph # (Auto) 1.08 L (1.20-3.40) K/uL Archer # (Auto) 0.76 H (0.11-0.59) K/uL Eos # (Auto) 0.14 (0.00-0.50) K/uL Baso # (Auto) 0.04 (0.00-0.20) K/uL Immature Gran # (Auto) 0.01 (0.01-0.20) K/uL Sodium 133 L (136-145) mmol/L Potassium 4.2 (3.5-5.1) mmol/L Chloride 99 (98-107) mmol/L Carbon Dioxide 29 (21-32) mmol/L Anion Gap 5 (3-11) BUN 39 H (6-23) mg/dl Creatinine 2.42 H (0.6-1.4) mg/dl Est Cr Clr Drug Dosing Not Reportable eGFR 25.22 BUN/Creatinine Ratio 16.1 (10-20) Glucose 145 H (70-99(Fasting)) mg/dl Calcium 9.3 (8.6-10.3) mg/dl Total Bilirubin 0.8 (0.2-1.0) mg/dl AST 17 (13-39) U/L ALT 14 (7-52) U/L Alkaline Phosphatase 74 (34-104) U/L Total Protein 7.0 (6.0-8.3) gm/dl Albumin 3.6 (3.4-5.0) gm/dl Globulin 3.4 (2.5-4.0) gm/dl Albumin/Globulin Ratio 1.1 (0.9-2) Procalcitonin 0.07 (0-0.5) ng/ml Administered Medications Lactated Ringer's (Lr) 1,000 mls @ 80 mls/hr IV .[id number] EMILE Stop: 06/08/25 08:59 Last Admin: 06/07/25 22:56 Dose: 80 mls/hr Documented By: KARIME Insulin Aspart (Insulin Aspart Per Unit Charge) 0 units SC ACHS EMILE Stop: 07/07/25 20:59 Last Admin: 06/07/25 22:56 Dose: 1 units Documented By: KARIME Co-signed By: FABIÁN Magnesium Oxide (Magnesium Oxide 400 Mg Tab) 400 mg PO BID EMILE Stop: 07/07/25 22:59 Last Admin: 06/07/25 23:09 Dose: 400 mg Documented By: KARIME Pantoprazole Sodium (Pantoprazole 40 Mg Tab) 40 mg PO BID EMILE Stop: 07/07/25 22:59 Last Admin: 06/07/25 23:09 Dose: 40 mg Documented By: AKRIME Discontinued Medications Sodium Chloride (Nss) 1,000 mls @ 999 mls/hr IV .[id number] ONE Stop: 06/07/25 17:13 Last Infusion: 06/07/25 17:51 Dose: Infused Documented By: Admin: 06/07/25 16:38 Dose: 999 mls/hr Documented By: RACHAEL Cefepime HCl (Maxipime 2000mg) 2,000 mg in 20 mls @ 5 mls/min IV NOW STA; Protocol Stop: 06/07/25 16:18 Last Admin: 06/07/25 16:37 Dose: 5 mls/min Documented By: RACHAEL Lidocaine HCl (Lidocaine 2% Jelly 5 Ml Tube) 5 ml EXT NOW ONE Stop: 06/07/25 16:18 Last Admin: 06/07/25 16:37 Dose: 5 ml Documented By: RACHAEL Imaging Data Radiologist's Impression: Abdomen/Pelvis CT 06/07/25 00:00 EXAMINATION: CT of the abdomen and pelvis performed without contrast TECHNIQUE: Helical CT images from the lung bases through the symphysis pubis were obtained without contrast. Coronal and sagittal reformatted images were generated at a workstation for further assessment. Dose reduction techniques were achieved by using automatic exposure control and/or adjustment of mA and/or kV according to patient size and/or use of iterative reconstruction technique. COMPARISON: None HISTORY: Abdominal pain FINDINGS: Lower chest: Trace pleural effusions. Diffuse fibrosis throughout the visualized mid and lower lungs, suggesting interstitial lung disease. There may also be some underlying interstitial pulmonary edema. Cardiomegaly. Watchman device. Liver: No suspicious liver lesions. Gallbladder: Cholecystectomy. Spleen: Normal size. Pancreas: No suspicious pancreatic lesions. The pancreatic duct is not dilated. Adrenal glands: No adrenal nodules. Kidneys: No hydronephrosis or obstructing renal stones. Bladder / Pelvic organs: Adan catheter in place decompressing the urinary bladder. The bladder wall appears thickened. Brachytherapy beads seen in the prostate gland, which is enlarged.. Bowel: No bowel obstruction. No abnormal bowel wall thickening. The appendix is unremarkable. Lymph nodes: No retroperitoneal, mesenteric, or pelvic lymphadenopathy. Peritoneum / Retroperitoneum: No free fluid or air within the abdomen. Vessels: No infrarenal aortic aneurysm. Moderate aortoiliac calcification. Bones and soft tissues: No suspicious lesion in the bones. Right fat-containing inguinal hernia. Fixation screws of the right femoral neck. IMPRESSION: Significant wall thickening of the urinary bladder, which may be due to decompression, chronic outlet obstruction, and/or cystitis, including infectious or radiation cystitis. There are brachytherapy beads in the prostate gland. Trace pleural effusions. Interstitial lung disease. There may also be underlying interstitial pulmonary edema. Electronically signed by Mike Rizvi 06-07-2025 6:39 PM Chest X-Ray 06/07/25 16:13 Chest radiograph, one view History: Shortness of breath Comparison: 07/15/2021 Findings: Single AP view of the chest performed. No focal consolidation or pleural effusion. No pneumothorax. The cardiomediastinal silhouette is within normal limits. Normal pulmonary vascularity. No evidence for lymphadenopathy. No visualized bony or soft tissue abnormality. Impression: Normal chest radiograph Electronically signed by Mike Rizvi 06-07-2025 4:33 PM Discharge Plan Visit Data Chief Complaint: Illness Stated Complaint: SOB ED Provider: Mor Mascorro Discharge Problem: Complicated urinary tract infection, Urinary retention due to benign prostatic hyperplasia, ROGER (acute kidney injury), Ambulatory dysfunction, Acute hyponatremia Patient Disposition: Admitted As Inpatient Condition: Fair Discharge Instructions Interventions: ED Discharge Assessment Last Done: 06/07/25 22:12
[2025-06-07 17:36] LABS: Appearance Urine Clear (Clear); Glucose Urine UA Negative (Negative)
--- NOTE | 2025-06-07 18:39 | CT Scan Report ---
EXAMINATION: CT of the abdomen and pelvis performed without contrast TECHNIQUE: Helical CT images from the lung bases through the symphysis pubis were obtained without contrast. Coronal and sagittal reformatted images were generated at a workstation for further assessment. Dose reduction techniques were achieved by using automatic exposure control and/or adjustment of mA and/or kV according to patient size and/or use of iterative reconstruction technique. COMPARISON: None HISTORY: Abdominal pain FINDINGS: Lower chest: Trace pleural effusions. Diffuse fibrosis throughout the visualized mid and lower lungs, suggesting interstitial lung disease. There may also be some underlying interstitial pulmonary edema. Cardiomegaly. Watchman device. Liver: No suspicious liver lesions. Gallbladder: Cholecystectomy. Spleen: Normal size. Pancreas: No suspicious pancreatic lesions. The pancreatic duct is not dilated. Adrenal glands: No adrenal nodules. Kidneys: No hydronephrosis or obstructing renal stones. Bladder / Pelvic organs: Adan catheter in place decompressing the urinary bladder. The bladder wall appears thickened. Brachytherapy beads seen in the prostate gland, which is enlarged.. Bowel: No bowel obstruction. No abnormal bowel wall thickening. The appendix is unremarkable. Lymph nodes: No retroperitoneal, mesenteric, or pelvic lymphadenopathy. Peritoneum / Retroperitoneum: No free fluid or air within the abdomen. Vessels: No infrarenal aortic aneurysm. Moderate aortoiliac calcification. Bones and soft tissues: No suspicious lesion in the bones. Right fat-containing inguinal hernia. Fixation screws of the right femoral neck. IMPRESSION: Significant wall thickening of the urinary bladder, which may be due to decompression, chronic outlet obstruction, and/or cystitis, including infectious or radiation cystitis. There are brachytherapy beads in the prostate gland. Trace pleural effusions. Interstitial lung disease. There may also be underlying interstitial pulmonary edema. Electronically signed by Mike Rizvi 06-07-2025 6:39 PM
--- NOTE | 2025-06-07 19:32 | History & Physical Report ---
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 ED evaluation is concerning for evidence of ROGER and presence of UTI, with prior culture growing out Pseudomonas. Patient will be admitted for ROGER and UTI treatment. #UTI/BPH Symptoms of N/V, weakness. No prior history of Pseudomonas, however on culture from 06/06/2025, Pseudomonas did grow out. He has been on a course of 3 different oral antibiotics for recurrent UTIs. - CBC without leukocytosis, procalcitonin 0.07; lactate pending - CBC am - CMP with Cr 2.42 - BMP am - UA positive for infection - CTAP wall thickening urinary bladder - IVF LR @ 80 mL/hr x 1L - Zofran prn N/V - Acetaminophen prn fever/pain - STOP bactrim - Continue dutasteride - Cefepime IV - continue - Has been weak -- PT/OT ordered - appreciate assistance #ROGER Likely secondary to obstruction/UTI. - Cr 2.42, BUN 39 - BMP am - UA (+) for infection - Bladder scan with PVR pending; Bladder scan prn - Hold nephrotoxic agents - IV LR @ 80 mL/hr #Pleural effusions Has history of, was admitted to [facility] "weeks ago" for such and was treated with Lasix and ultimately discharged. Still takes furosemide daily. H/o CHF per . - CXR WNL - CTAP showed trace pleural effusions, ILD, ? interstitial pulm edema - Not symptomatic, not hypoxic -- will monitor and restart Lasix pending Cr - Echo pending - Incentive spirometry #T2DM H/o DMT2, at home regimen include pioglitazone and semaglutide. - Most recent A1C 04/2025 @ 7.2% - Hold home meds - SSI with target BSG range 110-160mg/dL, CF 35, carb ratio deferred - BSG ACHS - Adjust regimen as needed #Afib- EKG at admission Afib, rate controlled; Watchman completed in February 2025; On ASA, metoprolol - Continue #HLD- Atorvastatin - continue #Psych- Bupropion - continue #GERD- Omeprazole - continue Dispo: Admit, med/sx VTE Prophylaxis: SCDs -- add chemical prophylaxis if prolonged stay This document was dictated utilizing [employer]. Please excuse any grammatical errors that may be secondary to use of this software. 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 He was seen by his urologist on 06/06/2025 and a catheter was placed. He is currently being treated for UTI with Bactrim as outpatient. Pt's helps to provide a majority of the history. Reports that in January 2025, he had a hip surgery and after that was at [facility] for recovery. When at [facility], he had his first UTI and was treated with Doxy and Cipro. Once getting home from [facility], he continued to appear ill so his brought him to the PCP where he was diagnosed again with another UTI and started on Keflex. 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 He was started on doxycycline which he took 4-5 doses of. 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 Patient is taking 2 doses of his Bactrim. His states that he is "so sick" since starting to have UTIs. 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 Also complaining of anorexia giving not feeling well. He did not have any fevers or chills. He does occasionally have SOB and was admitted at the [facility] "a few weeks ago" for "CHF" and was treated with furosemide which she takes daily. He does not feel SOB at this time, but does occasionally get swelling in his bilateral lower extremities. He had a Watchman procedure done in February [address] Barry at [facility], no longer on anticoagulation for Afib. Uses walker for ambulation, used the day of arrival but his states that she had to follow him with a chair because she was concerned that he was going to fall over since he has been so weak. Overall denies chest pain, SOB, palpitations, abdominal pain, diarrhea/constipation, numbness/tingling, fever/chills, URI symptoms, syncope, or falls. He feels that he is ready to eat. His notes that they have been 44 years, and unfortunately during the visit the patient's answered a phone call to inform them that their daughter who lives in [place] had a heart attack earlier in the day. We discussed this briefly, and offered prayer together for the patiet and daughter's healing. Pt is with catheter in place. It was replaced in the ED. ED evaluation reveals CBC without leukocytosis, H&H 11.4/34.1; CMP sodium 133, creatinine 2.42, BUN 39, glucose 145; procalcitonin 0.07; UA positive for infection; CTAP wall thickening of urinary bladder, brachytherapy beads in prostate gland, trace pleural effusions/interstitial lung disease; CXR WNL; EKG A-fib at 79 bpm.; Provided with 1L NSS, lidocaine jelly, and cefepime 2 g IV in ED. Please see Dr. Anglin's attestation for adjustments/additions to treatment plan. Allergies Allergy/AdvReac Type Severity Reaction Status Date / Time No Known Allergies Allergy Unverified 06/07/25 18:52 Home Medications Medication Instructions Recorded Confirmed Type magnesium oxide 400 mg PO BID 07/14/21 06/07/25 History multivitamin 1 tab PO QAM 07/14/21 06/07/25 History pioglitazone 45 mg tablet 45 mg PO QAM 07/14/21 06/07/25 History atorvastatin 40 mg tablet 40 mg PO DAILY 12/02/22 06/07/25 History furosemide 20 mg tablet 20 mg PO DAILY 12/02/22 06/07/25 History semaglutide 7 mg tablet (Rybelsus) 7 mg PO DAILY 12/02/22 06/07/25 History dutasteride 0.5 mg capsule 0.5 mg PO DAILY #90 caps 08/29/24 06/07/25 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; impotence, 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 aspirin 81 mg tablet 81 mg PO DAILY 05/09/25 06/07/25 History clopidogrel 75 mg tablet (Plavix) 0 mg PO DAILY 05/09/25 06/07/25 History sulfamethoxazole 800 1 tab PO BID #30 tabs 06/06/25 06/07/25 Rx mg-trimethoprim 160 mg tablet (Bactrim DS) bupropion HCl 150 mg 24 hr tablet, 150 mg PO QAM 06/07/25 06/07/25 History extended release (Wellbutrin XL) bupropion HCl 300 mg 24 hr tablet, 300 mg PO QAM 06/07/25 06/07/25 History extended release (Wellbutrin XL) methenamine hippurate 1 gram tablet 0 g PO BID 06/07/25 06/07/25 History metoprolol succinate 50 mg 50 mg PO DAILY 06/07/25 06/07/25 History tablet,extended release 24 hr omeprazole 20 mg capsule,delayed 20 mg PO BID 06/07/25 06/07/25 History release Past Med/Surg History Problem List (Updated 06/08/25 @ 01:35 by Mor Mascorro DO) Ambulatory dysfunction (Acute) ROGER (acute kidney injury) (Acute) Complicated urinary tract infection (Acute) Pleural effusion Urinary tract infection Acute kidney injury UTI symptoms Chronic kidney disease Stage III Encounter for pre-operative examination Post-operative state Impotence, organic (Acute) Hematuria (Acute) Type 2 diabetes mellitus (Acute) Benign localized hyperplasia of prostate with urinary obstruction (Acute) Back pain (Acute) Urinary retention due to benign prostatic hyperplasia (Acute) Medical History Degenerative disc disease Arthritis Urinary retention BPH (benign prostatic hyperplasia) GERD (gastroesophageal reflux disease) Barretts esophagus Diabetes mellitus, type 2 NIDDM Hypertension Hyperlipidemia Surgical History History of herniorrhaphy x2 History of total knee replacement Left History of colonoscopy History of esophagogastroduodenoscopy (EGD) H/O partial thyroidectomy Benign lump removal History of tooth extraction History of cataract surgery R/L Hx of cholecystectomy Family History Father Cardiac disorder Brother Family history of diabetes mellitus Other No family history of adverse response to anesthesia Social History Smoking Status: Never smoker Second Hand Exposure: No; Do You Dip or Chew Tobacco: No; Hx Alcohol Use: No Hx Substance Use: No Preferred Language: Slovenian Communication Ability: Effective Senior [employer] Required: No Beliefs That Will Affect Care: Advent Advent Beliefs: JUDAISM marital status: Current Living Situation: Spouse current occupational status: retired Feels Safe at Home: Yes Safety Concerns: Feels Safe At This Time Assistive Devices: Walker Review of Systems Review of Systems: All systems reviewed & are unremarkable except as noted in Subjective Physical Exam Physical Exam: General: No acute distress Skin: Warm and dry Head: Normocephalic, atraumatic Eyes: PERRL, conjunctivae clear, sclera non-icteric; wearing glasses ENT: External ear and ear canal without swelling; nose atraumatic; good dentition, tongue normal appearance, pharynx normal Neck: Supple, no LAD Cardio: Irregularly irregular rhythm regular rate, no M/G/R, S1 and S2 normal Resp: No respiratory distress, Lungs CTA in all lobes bilaterally, no wheezes, rales, or rhonchi Abdomen: Soft, symmetric, nontender; No masses or hepatosplenomegaly; Bowel so unds normoactive : Urinary catheter in place, with clear yellow urine draining. MSK: No deformities; pulses palpable and equal; trace pitting edema BLE, no calf tenderness. Neuro: Awake, alert; Sensation intact bilaterally; CN grossly intact Psych: Appropriate mood and affect; good judgement and insight. present in room at time of visit. Results & Data Results & Data Vital Signs (Past 12 Hours) Vital Signs Temp Pulse Pulse Resp BP BP Pulse Ox 06/07/25 18:53 74 06/07/25 18:30 67 17 95 06/07/25 17:30 67 14 98 06/07/25 17:00 74 18 126/68 97 06/07/25 16:00 93 H 18 94 06/07/25 15:31 76 06/07/25 14:52 78 17 116/66 97 06/07/25 13:18 36.9 C 90 18 109/67 93 O2 Del Method 06/07/25 18:53 06/07/25 18:30 06/07/25 17:30 06/07/25 17:00 Room Air 06/07/25 16:00 Room Air 06/07/25 15:31 06/07/25 14:52 Room Air 06/07/25 13:18 Room Air Laboratory Results 06/07/25 Unknown Urine Culture - Pending Urine,Clean Catch 06/07/25 06/07/25 06/07/25 Unknown 15:11 15:10 WBC 7.27 RBC 3.60 L Hgb 11.4 L Hct 34.1 L MCV 94.7 MCH 31.7 MCHC 33.4 RDW Std Deviation 52.1 H RDW Coeff of Evelio 15.1 H Plt Count 186 MPV 9.4 Immature Gran % (Auto) 0.1 Neut % (Auto) 72.0 Lymph % (Auto) 14.9 [place] % (Auto) 10.5 Eos % (Auto) 1.9 Baso % (Auto) 0.6 Neut # (Auto) 5.24 Lymph # (Auto) 1.08 L [place] # (Auto) 0.76 H Eos # (Auto) 0.14 Baso # (Auto) 0.04 Immature Gran # (Auto) 0.01 Sodium 133 L Potassium 4.2 Chloride 99 Carbon Dioxide 29 Anion Gap 5 BUN 39 H Creatinine 2.42 H Est Cr Clr Drug Dosing Not Reportable eGFR 25.22 BUN/Creatinine Ratio 16.1 Glucose 145 H Calcium 9.3 Total Bilirubin 0.8 AST 17 ALT 14 Alkaline Phosphatase 74 Total Protein 7.0 Albumin 3.6 Globulin 3.4 Albumin/Globulin Ratio 1.1 Procalcitonin 0.07 Urine Color Yellow Urine Appearance Clear Urine pH 6.0 Ur Specific [place] 1.010 Urine Protein Negative Urine Glucose (UA) Negative Urine Ketones Negative Urine Blood 2+ H Urine Nitrite Negative Urine Bilirubin Negative Urine Urobilinogen Negative Ur Leukocyte Esterase 2+ H Urine RBC 6-10 H Urine WBC 21-50 H Ur Epithelial Cells 3-5 H Urine Bacteria 1+ H Hyaline Casts P Urine Comment Diagnostic Findings Abdomen/Pelvis CT 06/07/25 00:00 EXAMINATION: CT of the abdomen and pelvis performed without contrast TECHNIQUE: Helical CT images from the lung bases through the symphysis pubis were obtained without contrast. Coronal and sagittal reformatted images were generated at a workstation for further assessment. Dose reduction techniques were achieved by using automatic exposure control and/or adjustment of mA and/or kV according to patient size and/or use of iterative reconstruction technique. COMPARISON: None HISTORY: Abdominal pain FINDINGS: Lower chest: Trace pleural effusions. Diffuse fibrosis throughout the visualized mid and lower lungs, suggesting interstitial lung disease. There may also be some underlying interstitial pulmonary edema. Cardiomegaly. Watchman device. Liver: No suspicious liver lesions. Gallbladder: Cholecystectomy. Spleen: Normal size. Pancreas: No suspicious pancreatic lesions. The pancreatic duct is not dilated. Adrenal glands: No adrenal nodules. Kidneys: No hydronephrosis or obstructing renal stones. Bladder / Pelvic organs: Adan catheter in place decompressing the urinary bladder. The bladder wall appears thickened. Brachytherapy beads seen in the prostate gland, which is enlarged.. Bowel: No bowel obstruction. No abnormal bowel wall thickening. The appendix is unremarkable. Lymph nodes: No retroperitoneal, mesenteric, or pelvic lymphadenopathy. Peritoneum / Retroperitoneum: No free fluid or air within the abdomen. Vessels: No infrarenal aortic aneurysm. Moderate aortoiliac calcification. Bones and soft tissues: No suspicious lesion in the bones. Right fat-containing inguinal hernia. Fixation screws of the right femoral neck. IMPRESSION: Significant wall thickening of the urinary bladder, which may be due to decompression, chronic outlet obstruction, and/or cystitis, including infectious or radiation cystitis. There are brachytherapy beads in the prostate gland. Trace pleural effusions. Interstitial lung disease. There may also be underlying interstitial pulmonary edema. Electronically signed by Mike Rizvi 06-07-2025 6:39 PM Chest X-Ray 06/07/25 16:13 Chest radiograph, one view History: Shortness of breath Comparison: 07/15/2021 Findings: Single AP view of the chest performed. No focal consolidation or pleural effusion. No pneumothorax. The cardiomediastinal silhouette is within normal limits. Normal pulmonary vascularity. No evidence for lymphadenopathy. No visualized bony or soft tissue abnormality. Impression: Normal chest radiograph Electronically signed by Mike Rizvi 06-07-2025 4:33 PM Medications Administered 1L NSS Lidocaine 5 mL ext Cefepime 2 g IV ECG Additional Comments: A-fib 79 bpm, CO *, QRS 90, QT/QTc 390/447, PRT*/-9/20 Code Status & VTE Plan Code Status Full Supervising Physician Co-Signing Physician Notes patient seen and examined, chart reviewed, case discussed with GERMAIN Barrios I agree with assessment plan as document above. In brief, patient is an 89-year-old male presenting with UTI. Prior culture positive for Pseudomonas. Patient with elevation of creatinine from baseline as well. On physical exam he is resting comfortably, no acute distress. Is concerned about the recurrence of his UTIs Skinwarm, dry, intact, no rash or lesions HEENTmoist mucous membranes, neck supple Heart+ S1, S2, regular, no murmur/rub/gallop LungsCTA anteriorly Abdomenpositive bowel sounds, soft, nontender, no CVA tenderness, no suprapubic tenderness Extremitieswarm labs and images reviewed. Creatinine = 2.42 (increased from 2.09 on 04/28/2025) UA with 1+ bacteria, epithelial cells, WBCs, RBCs CT abdomen/pelvis with bladder wall thickening Trace pleural effusions Assessment/plan Continue cefepime. Patient with urine culture from 06/06/2025 positive for Pseudomonas aeruginosa. patient follows with urology for BPH, urinary retention and recurrent UTIs Gentle IV fluids Zofran as needed Tylenol as needed Closely monitor renal function Echocardiogram ordered to assess pleural effusions noted on imaging Remainder as above PG Care Time/CCT Total # of Minutes Spent Total Time Spent with Patient: Total time spent is greater than 50% in coordination of care (as documented) at patient's floor/unit and/or counseling patient: Coding Level of Care Code 36572 INT INP/OBS CARE 375MIN Diagnoses Urinary tract infection N39.0 Acute kidney injury N17.9 Pleural effusion J90 Type 2 diabetes mellitus E11.9
[2025-06-07] MEDS ORDERED: ACETAMINOPHEN 500 MG TAB PO PRN (20:19)
[2025-06-07] MEDS ORDERED: CARBOHYDRATES FOR HYPOGLYCEMIA PO PRN (20:42)
[2025-06-07] MEDS ORDERED: GLUCOSE 40% GEL 15 GM TUBE PO PRN (20:42)
[2025-06-07] MEDS ORDERED: GLUCAGON FOR INJ 1 MG VIAL SQ PRN (20:42)
[2025-06-07] MEDS ORDERED: DEXTROSE 50% 50 ML SYRINGE IV PRN (20:42)
[2025-06-07] MEDS ORDERED: GLUCOSE 10 TAB/TUBE PO PRN (20:42)
[2025-06-07] MEDS ORDERED: MAGNESIUM HYDROXIDE SUSP 30 ML UDC PO PRN (22:46)
[2025-06-07] MEDS: INSULIN ASPART PER UNIT CHARGE SC SCH (22:56)
[2025-06-07] MEDS: LACTATED RINGER'S 1,000 ML IV SCH (22:56)
[2025-06-07] MEDS: MAGNESIUM OXIDE 400 MG TAB PO SCH (23:09)
[2025-06-08] MEDS: CEFEPIME 1000MG 1,000 MG/10 ML SYR IV SCH (05:19)
[2025-06-08 05:47] LABS: Hematocrit (blood only) 32.8 % (42.0-52.0); Hemoglobin 10.9 g/dl (14.0-18.0); Mean Corpuscular Hemoglobin 31.5 pg (25.0-34.0); Mean Corpuscular Volume 94.8 fL (80.0-100.0); Platelet Count 181 K/uL (130-400); RDW Standard Deviation 52.7 fL (36.4-46.3); Red Blood Count 3.46 M/uL (4.70-6.10); White Blood Count 6.79 K/ul (4.8-10.8)
[2025-06-08 06:02] LABS: Anion Gap 3.0 (3-11); Blood Urea Nitrogen 30.0 mg/dl (6-23); Calcium 8.8 mg/dl (8.6-10.3); Carbon Dioxide 29.0 mmol/L (21-32); Chloride 103.0 mmol/L (98-107); Creatinine Clr Calc Pharmacy 28.3 ml/min; Glucose 125.0 mg/dl (70-99(Fasting)); Potassium 4.3 mmol/L (3.5-5.1); Sodium 135.0 mmol/L (136-145)
[2025-06-08] MEDS: ONDANSETRON INJ 2 MG/ML 2 ML VIAL IV PRN (08:01)
[2025-06-08] MEDS: ATORVASTATIN 40 MG TAB PO SCH (08:02)
[2025-06-08] MEDS: ASPIRIN 81 MG ECTAB PO SCH (08:02)
[2025-06-08] MEDS: FINASTERIDE 5 MG TAB PO SCH (08:02)
[2025-06-08] MEDS: POLYETHYLENE (MIRALAX) 17 GM PACK PO PRN (08:02)
[2025-06-08] MEDS: METOPROLOL SUCC 50MG EXT REL TAB PO SCH (08:02)
--- NOTE | 2025-06-08 11:01 | XCELERA ---
[id number]
--- NOTE | 2025-06-08 12:22 | Hospitalist Progress Note ---
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 ED evaluation is concerning for evidence of ROGER and presence of UTI, with prior culture growing out Pseudomonas. Patient will be admitted for ROGER and UTI treatment. #UTI/BPH CTAP: significant wall thickening of urinary bladder which may be due to decompression, chronic outlet obstruction, and/or cystitis. brachytherapy beads in prostate gland CBC w/o leukocytosis, BMP w/ downtrending creatinine. UC consistent with pansensitive pseudomonas Continue IV Cefepime Continue dutasteride s/p IVF Zofran prn for N/V; Tylenol prn for fever/pain. PT/OT consulted - 1st encounter limited secondary to N/V, plans to re-eval. #ROGER Likely secondary to obstruction/UTI. Creatinine 2.42 on admission --> downtrending to 2.12 Bladder scan prn Adan in place s/p IVF #Pleural effusions Has history of, was admitted to [facility] "weeks ago" for such and was treated with Lasix and ultimately discharged. Still takes furosemide daily. H/o CHF per . CXR WNL Echo: EF 60-65%; mild pulm regurg; mild tricuspid regurg; trace aortic regurg. #T2DM H/o DMT2, at home regimen include pioglitazone and semaglutide. (hold while inpatient) Most recent A1C 04/2025 @ 7.2% SSI with target BSG range 110-160mg/dL, CF 35, carb ratio deferred BSG ACHS Adjust regimen as needed #Afib- EKG at admission Afib, rate controlled; Watchman completed in February 2025; On ASA, metoprolol - Continue #HLD- Atorvastatin - continue #Psych- Bupropion - continue #GERD- Omeprazole - continue Dispo: Admit, med/sx VTE Prophylaxis: SCDs -- add chemical prophylaxis if prolonged stay Admission and Anticipated Discharge Date Admission Date: June 07, 2025 Supervising Physician Co-Signing Physician Notes The patient was not seen by me. The chart was reviewed. Case discussed with JAYNE Browning. Agree with assessment and plan Subjective Oscar seen & examined this morning. He had an episode of vomiting following his breakfast. Aside from this he does any abdominal pain. Adan catheter in place & denies any symptoms with it. Physical Exam Constitutional: WD/WN, vitals as above Eyes: PERRL, conjunctivae normal, anicteric sclerae Respiratory: normal respiratory effort Gastrointestinal (Abdomen): normal bowel sounds, soft, nontender, no hepatosplenomegaly Skin: no rashes, warm and dry Neurologic: PERRL, EOMI, accommodation nl, no face palsy, no dysarthria Psychiatric: A+Ox3, euthymic affect Results & Data Results & Data Vital Signs (Past 12 Hours) Vital Signs Temp Pulse Resp BP BP Pulse Ox O2 Del Method 06/08/25 10:57 36.5 C 85 17 130/81 97 Room Air 06/08/25 08:00 Room Air 06/08/25 07:57 73 17 133/90 94 Room Air 06/08/25 07:06 36.6 C 72 16 130/77 91 Room Air PG Care Time/CCT Total # of Minutes Spent Total Time Spent with Patient: Total time spent is greater than 50% in coordination of care (as documented) at patient's floor/unit and/or counseling patient: Coding Level of Care Code 44770 SUB INP/OBS CARE 2/35MIN Diagnoses Urinary tract infection N39.0 Acute kidney injury N17.9 Pleural effusion J90 Type 2 diabetes mellitus E11.9
--- NOTE | 2025-06-08 15:01 | Urology Consultation ---
Date of Consultation June 08, 2025 Assessment & Plan (1) ROGER (acute kidney injury): (2) Complicated urinary tract infection: Plan 89-year-old male admitted with UTI and ROGER. CT abdomen pelvis on arrival demonstrated bladder wall thickening, no stones or hydronephrosis. He is afebrile and hemodynamically stable at present. Labs today showed no leukocytosis, hemoglobin 10.9, creatinine 2.12 (was 2.4 on admit). Urine culture 06/07 preliminary no growth. Urine culture 06/06 grew Pseudomonas, sensitive to cefepime. Adan intact and draining yellow urine. No acute intervention warranted. Continue antibiotic therapy. Will likely need 10-14 days total of antibiotic therapy. Maintain Adan catheter. He is scheduled for a possible voiding trial on 06/14/2025 in urology clinic. Continue supportive care. Urology will sign off. Please contact us with any further questions, concerns, or changes in patient's status. History of Present Illness Attending Physician: Chriss Lawler MD History of Present Illness 89 year old male with a PMHx including CKD, T2DM, BPH with obstruction, and chronic UTIs who presented to the ED 06/07 with vomiting and ill-feelings. In the ED, CBC without leukocytosis, creatinine 2.42. Urinalysis concerning for infection. CT abdomen pelvis showing bladder wall thickening, no stones or hydronephrosis. Patient had a recent positive outpatient culture which grew Pseudomonas and had been on oral Bactrim. A urine culture was sent. He was started on cefepime. He is admitted to medicine service. Patient is known to the urology office, follows with Dr. Christiansen. Patient was seen in the urology clinic on 06/06. He had a catheter replaced at that time with plans for extended course of antibiotics and possible void trial in 1 week. Patient was seen at bedside today. He is awake and resting in bed on arrival. No acute distress. Reports feeling better overall. Adan intact and draining yellow urine. Allergies Allergy/AdvReac Type Severity Reaction Status Date / Time No Known Allergies Allergy Unverified 06/07/25 18:52 Home Medications Medication Instructions Recorded Confirmed Type magnesium oxide 400 mg PO BID 07/14/21 06/07/25 History multivitamin 1 tab PO QAM 07/14/21 06/07/25 History pioglitazone 45 mg tablet 45 mg PO QAM 07/14/21 06/07/25 History atorvastatin 40 mg tablet 40 mg PO DAILY 12/02/22 06/07/25 History furosemide 20 mg tablet 20 mg PO DAILY 12/02/22 06/07/25 History semaglutide 7 mg tablet (Rybelsus) 7 mg PO DAILY 12/02/22 06/07/25 History dutasteride 0.5 mg capsule 0.5 mg PO DAILY #90 caps 08/29/24 06/07/25 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; impotence, 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 aspirin 81 mg tablet 81 mg PO DAILY 05/09/25 06/07/25 History clopidogrel 75 mg tablet (Plavix) 0 mg PO DAILY 05/09/25 06/07/25 History sulfamethoxazole 800 1 tab PO BID #30 tabs 06/06/25 06/07/25 Rx mg-trimethoprim 160 mg tablet (Bactrim DS) bupropion HCl 150 mg 24 hr tablet, 150 mg PO QAM 06/07/25 06/07/25 History extended release (Wellbutrin XL) bupropion HCl 300 mg 24 hr tablet, 300 mg PO QAM 06/07/25 06/07/25 History extended release (Wellbutrin XL) methenamine hippurate 1 gram tablet 0 g PO BID 06/07/25 06/07/25 History metoprolol succinate 50 mg 50 mg PO DAILY 06/07/25 06/07/25 History tablet,extended release 24 hr omeprazole 20 mg capsule,delayed 20 mg PO BID 06/07/25 06/07/25 History release Patient History Medical History Degenerative disc disease Arthritis Urinary retention BPH (benign prostatic hyperplasia) GERD (gastroesophageal reflux disease) Barretts esophagus Diabetes mellitus, type 2 NIDDM Hypertension Hyperlipidemia Surgical History History of herniorrhaphy x2 History of total knee replacement Left History of colonoscopy History of esophagogastroduodenoscopy (EGD) H/O partial thyroidectomy Benign lump removal History of tooth extraction History of cataract surgery R/L Hx of cholecystectomy Family History Father Cardiac disorder Brother Family history of diabetes mellitus Other No family history of adverse response to anesthesia Social History Smoking Status: Never smoker Second Hand Exposure: No; Do You Dip or Chew Tobacco: No; Hx Alcohol Use: No Hx Substance Use: No Preferred Language: Hebrew Communication Ability: Effective Color Adviser Required: No Beliefs That Will Affect Care: Confucianism Confucianism Beliefs: TAOIST marital status: Current Living Situation: Spouse current occupational status: retired Feels Safe at Home: Yes Safety Concerns: Feels Safe At This Time Assistive Devices: Walker Review of Systems Review of Systems: All systems reviewed & are unremarkable except as noted in HPI & below Physical Exam Constitutional: no acute distress Respiratory: no respiratory distress and no labored breathing Neurologic: awake Psychiatric: A+Ox3, euthymic affect Genitourinary: Adan intact Results & Data Vital Signs (Past 12 Hours) Vital Signs Temp Pulse Resp BP BP Pulse Ox O2 Del Method 06/08/25 14:23 36.8 C 73 16 118/75 98 Room Air 06/08/25 10:57 36.5 C 85 17 130/81 97 Room Air 06/08/25 08:00 Room Air 06/08/25 07:57 73 17 133/90 94 Room Air 06/08/25 07:06 36.6 C 72 16 130/77 91 Room Air PG Care Time/CCT Total # of Minutes Spent Total Time Spent with Patient: Total time spent is greater than 50% in coordination of care (as documented) at patient's floor/unit and/or counseling patient: Coding Level of Care Code 13901 INT INP/OBS CARE 1/40MIN Diagnoses ROGER (acute kidney injury) N17.9 Complicated urinary tract infection N39.0
[2025-06-08] MEDS: FAMOTIDINE 20MG IV PUSH 20 MG/5 ML SYR IV SCH (16:29)
[2025-06-08] MEDS: MELATONIN 3 MG TAB PO PRN (21:49)
--- NOTE | 2025-06-08 22:08 | Electrocardiogram Report ---
Test Reason : Blood Pressure : */* mmHG Vent. Rate : 79 BPM Atrial Rate : * BPM P-R Int : * ms QRS Dur : 90 ms QT Int : 390 ms P-R-T Axes : * -9 20 degrees QTcB Int : 447 ms Atrial fibrillation Cannot rule out Anterior infarct , age undetermined Abnormal ECG When compared with ECG of 15-Jul-2021 12:11, Atrial fibrillation has replaced Sinus rhythm Nonspecific T wave abnormality now evident in Anterior leads Confirmed by Omer Harrison ([id number]) on 06/08/2025 10:08:23 PM Referred By: Mike Christiansen Confirmed By: Omer Harrison
[2025-06-09 06:34] LABS: Hematocrit (blood only) 32.2 % (42.0-52.0); Hemoglobin 10.8 g/dl (14.0-18.0); Mean Corpuscular Hemoglobin 31.7 pg (25.0-34.0); Mean Corpuscular Volume 94.4 fL (80.0-100.0); Platelet Count 194 K/uL (130-400); RDW Standard Deviation 51.1 fL (36.4-46.3); Red Blood Count 3.41 M/uL (4.70-6.10); White Blood Count 6.17 K/ul (4.8-10.8)
[2025-06-09 07:25] LABS: Anion Gap 4.0 (3-11); Blood Urea Nitrogen 25.0 mg/dl (6-23); Calcium 8.8 mg/dl (8.6-10.3); Carbon Dioxide 29.0 mmol/L (21-32); Chloride 104.0 mmol/L (98-107); Creatinine Clr Calc Pharmacy 31.1 ml/min; Glucose 102.0 mg/dl (70-99(Fasting)); Potassium 4.5 mmol/L (3.5-5.1); Sodium 137.0 mmol/L (136-145)
--- NOTE | 2025-06-09 12:12 | Hospitalist Progress Note ---
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 ED evaluation is concerning for evidence of ROGER and presence of UTI, with prior culture growing out Pseudomonas. Patient will be admitted for ROGER and UTI treatment. #UTI/BPH CTAP: significant wall thickening of urinary bladder which may be due to decompression, chronic outlet obstruction, and/or cystitis. brachytherapy beads in prostate gland CBC w/o leukocytosis, BMP w/ downtrending creatinine. UC consistent with pansensitive pseudomonas Continue IV Cefepime Continue dutasteride Zofran prn for N/V; Tylenol prn for fever/pain. PT/OT consulted - 1st encounter limited secondary to N/V, plans to re-eval. #ROGER Likely secondary to obstruction/UTI. Creatinine 2.42 on admission --> downtrending to 1.93 Bladder scan prn Adan in place s/p IVF #Orthostatic hypotension Concern for orthostasis secondary to dizziness/nausea/vomiting while moving. Suspect vasovagal episodes. Check orthostatic VS daily Midodrine 2.5mg TID added - continue to monitor symptoms. #Pleural effusions Has history of, was admitted to [facility] "weeks ago" for such and was treated with Lasix and ultimately discharged. Still takes furosemide daily. H/o CHF per . CXR WNL Echo: EF 60-65%; mild pulm regurg; mild tricuspid regurg; trace aortic regurg. #T2DM H/o DMT2, at home regimen include pioglitazone and semaglutide. (hold while inpatient) Most recent A1C 04/2025 @ 7.2% SSI with target BSG range 110-160mg/dL, CF 35, carb ratio deferred BSG ACHS Adjust regimen as needed #Afib- EKG at admission Afib, rate controlled; Watchman completed in February 2025; On ASA, metoprolol - Continue #HLD- Atorvastatin - continue #Psych- Bupropion - continue #GERD- Omeprazole - continue Dispo: Admit, med/sx VTE Prophylaxis: SCDs, Heparin BID Updated son at bedside 06/09. Admission and Anticipated Discharge Date Admission Date: June 07, 2025 Supervising Physician Co-Signing Physician Notes The patient was not seen by me. The chart was reviewed. Case discussed with JAYNE Browning. Agree with assessment and plan Subjective Oscar seen and examined this morning with his son present. This morning while working w/ PT he was able to get up & walk briefly but then experienced dizziness & had an episode of vomiting. Son/patient report that this has been an ongoing issue in the outpatient setting for some time now. During my exam he was without symptoms. Physical Exam Constitutional: WD/WN, vitals as above Eyes: PERRL, conjunctivae normal, anicteric sclerae Respiratory: normal respiratory effort, lungs clear to auscultation Cardiovascular: RRR, no murmur, no edema Gastrointestinal (Abdomen): normal bowel sounds, soft, nontender, no hepatosplenomegaly Skin: no rashes, warm and dry Neurologic: PERRL, EOMI, accommodation nl, no face palsy, no dysarthria Psychiatric: A+Ox3, euthymic affect Results & Data Results & Data Vital Signs (Past 12 Hours) Vital Signs Temp Pulse Resp BP Pulse Ox O2 Del Method 06/09/25 07:08 36.6 C 81 16 146/78 H 98 Room Air PG Care Time/CCT Total # of Minutes Spent Total Time Spent with Patient: Total time spent is greater than 50% in coordination of care (as documented) at patient's floor/unit and/or counseling patient: Coding Level of Care Code 85988 SUB INP/OBS CARE 2/35MIN Diagnoses Urinary tract infection N39.0 Acute kidney injury N17.9 Pleural effusion J90 Type 2 diabetes mellitus E11.9
[2025-06-09] MEDS: MIDODRINE HCL 2.5 MG TAB PO SCH (16:36)
[2025-06-09] MEDS: PROMETHAZINE 6.25 MG/50.25 ML BAG IV PRN (20:02)
[2025-06-09] MEDS: HEPARIN SOD 5,000 UNIT/0.5 ML VIAL SQ SCH (22:21)
[2025-06-09] MEDS: ACETAMINOPHEN 325 MG TAB PO PRN (22:22)
[2025-06-10 09:03] LABS: Hematocrit (blood only) 35.2 % (42.0-52.0); Hemoglobin 11.7 g/dl (14.0-18.0); Mean Corpuscular Hemoglobin 31.3 pg (25.0-34.0); Mean Corpuscular Volume 94.1 fL (80.0-100.0); Platelet Count 213 K/uL (130-400); RDW Standard Deviation 50.6 fL (36.4-46.3); Red Blood Count 3.74 M/uL (4.70-6.10); White Blood Count 6.28 K/ul (4.8-10.8)
[2025-06-10 09:24] LABS: Anion Gap 6.0 (3-11); Blood Urea Nitrogen 20.0 mg/dl (6-23); Calcium 9.2 mg/dl (8.6-10.3); Carbon Dioxide 27.0 mmol/L (21-32); Chloride 104.0 mmol/L (98-107); Creatinine Clr Calc Pharmacy 34.1 ml/min; Glucose 111.0 mg/dl (70-99(Fasting)); Potassium 4.1 mmol/L (3.5-5.1); Sodium 137.0 mmol/L (136-145)
--- NOTE | 2025-06-10 10:29 | XRay Report ---
KUB CLINICAL HISTORY: Vomiting. Generalized abdominal pain. FINDINGS: 2 AP supine abdominal radiographs are correlated with abdominal CT dated 06/07/2025. Cholecy stectomy clips are noted in the right upper quadrant. There are brachytherapy implants in the prostat e gland. There is a nonobstructed abdominal bowel gas pattern. Mild fecal retention is noted througho ut the colon. No evidence of intraperitoneal free air is seen on these supine images. There are no ab normal abdominal calcifications. Phleboliths are seen in the pelvis. The skeletal structures are oste openic. There is moderate to advanced lumbosacral spondylosis. Chronic deformity and postsurgical izabel nge is noted in the right proximal femur. IMPRESSION: No acute abnormality is identified. Electronically signed by: Heath Del Angel M.D. 06/10/2025 10:27 AM
[2025-06-10] MEDS ORDERED: METOCLOPRAMIDE HCL 5 MG TABLET PO SCH (11:30)
--- NOTE | 2025-06-10 12:09 | Hospitalist Progress Note ---
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 ED evaluation is concerning for evidence of ROGER and presence of UTI, with prior culture growing out Pseudomonas. Patient will be admitted for ROGER and UTI treatment. #UTI/BPH CTAP: significant wall thickening of urinary bladder which may be due to decompression, chronic outlet obstruction, and/or cystitis. brachytherapy beads in prostate gland CBC w/o leukocytosis, BMP w/ downtrending creatinine. UC consistent with pansensitive pseudomonas Continue IV Cefepime Continue dutasteride Tylenol prn for fever/pain. PT/OT consulted - recommending rehab overnight 06/09 - did exhibit signs of agitation - suspect underlying hospital delirium. Supportive care for now w/ re-direction, sleep-wake cycles, & family presence #Orthostatic hypotension/dizziness/N/V N/V may be secondary to orthostasis vs vertigo ( reports hx) vs underlying gastroparesis/on semaglutide. On 06/09 he had episode w/ PT where he was ambulating, became pale/dizzy & got back to bed. Had an episode of emesis. Was unable to get BP at that time secondary to machine malfunction. Following event, started Midodrine 2.5mg TID Orthostatics 06/10: lying 126/82, sitting 121/80, standing 107/68. --> continue to re-eval daily to monitor for improvement. KUB 06/10 - mild fecal retention - ruled out constipation but did add scheduled stool softener secondary to hx of constipation. Miralax prn. Reglan 5mg PO ACHS added; Zofran prn for breakthrough nausea/vomiting. Meclizine prn BID for dizziness Continue PPI & Pepcid. If ongoing, consider outpatient gastroparesis study if the above does not resolve symptoms. #ROGER Likely secondary to obstruction/UTI. Creatinine 2.42 on admission --> downtrending to 1.76 Bladder scan prn Adan in place s/p IVF #Pleural effusions Has history of, was admitted to [facility] "weeks ago" for such and was treated with Lasix and ultimately discharged. Still takes furosemide daily. H/o CHF per . CXR WNL Echo: EF 60-65%; mild pulm regurg; mild tricuspid regurg; trace aortic regurg. Caution excess IVF w/ this hx #T2DM H/o DMT2, at home regimen include pioglitazone and semaglutide. (hold while inpatient) Most recent A1C 04/2025 @ 7.2% SSI with target BSG range 110-160mg/dL, CF 35, carb ratio deferred BSG ACHS Adjust regimen as needed #Afib- EKG at admission Afib, rate controlled; Watchman completed in February 2025; On ASA, metoprolol - Continue #HLD- Atorvastatin - continue #Psych- Bupropion - continue #GERD- Omeprazole - continue Dispo: Admit, med/sx VTE Prophylaxis: SCDs, Heparin BID Updated at bedside 06/10. Admission and Anticipated Discharge Date Admission Date: June 07, 2025 Supervising Physician Co-Signing Physician Notes The patient was not seen by me. The chart was reviewed. Case discussed with JAYNE Browning. Agree with assessment and plan Subjective Oscar was seen and examined this morning with his at bedside. Nursing reports overnight that he experienced an increase of agitation. Oscar denied any complaints at time of my enocunter. He reports that he thinks he had an episode of emesis this morning but not entirely sure. reports that she has been dealing with this at home for awhile. Does report he has been on semaglutide for 3 years & has had vertigo in the past. Physical Exam Constitutional: WD/WN, vitals as above Eyes: PERRL, conjunctivae normal, anicteric sclerae Respiratory: normal respiratory effort, lungs clear to auscultation Cardiovascular: RRR, no murmur, no edema Gastrointestinal (Abdomen): normal bowel sounds, soft, nontender, no hepatos plenomegaly Neurologic: PERRL, EOMI, accommodation nl, no face palsy, no dysarthria Psychiatric: appears confused but alert & oriented to self Results & Data Results & Data Vital Signs (Past 12 Hours) Vital Signs Temp Pulse Resp BP Pulse Ox O2 Del Method 06/10/25 07:12 36.6 C 83 14 115/73 96 Room Air PG Care Time/CCT Total # of Minutes Spent Total Time Spent with Patient: Total time spent is greater than 50% in coordination of care (as documented) at patient's floor/unit and/or counseling patient: Coding Level of Care Code 33679 SUB INP/OBS CARE 350MIN Diagnoses Urinary tract infection N39.0 Acute kidney injury N17.9 Pleural effusion J90 Type 2 diabetes mellitus E11.9
[2025-06-10] MEDS: METOCLOPRAMIDE HCL INJ 5 MG/ML 2 ML VIAL IV ONE (13:18)
[2025-06-10] MEDS: CEFEPIME 2000MG 2,000 MG/20 ML SYR IV SCH (16:00)
[2025-06-10] MEDS: METOCLOPRAMIDE HCL 5 MG TABLET PO SCH (17:19)
[2025-06-10] MEDS: MECLIZINE 12.5 MG TAB PO PRN (21:18)
[2025-06-10] MEDS: DOCUSATE SODIUM 100 MG CAP PO SCH (21:23)
[2025-06-11 09:36] LABS: Hematocrit (blood only) 33.9 % (42.0-52.0); Hemoglobin 11.6 g/dl (14.0-18.0); Mean Corpuscular Hemoglobin 31.7 pg (25.0-34.0); Mean Corpuscular Volume 92.6 fL (80.0-100.0); Platelet Count 185 K/uL (130-400); RDW Standard Deviation 49.5 fL (36.4-46.3); Red Blood Count 3.66 M/uL (4.70-6.10); White Blood Count 6.90 K/ul (4.8-10.8)
[2025-06-11 09:53] LABS: Anion Gap 5.0 (3-11); Blood Urea Nitrogen 19.0 mg/dl (6-23); Calcium 9.0 mg/dl (8.6-10.3); Carbon Dioxide 26.0 mmol/L (21-32); Chloride 105.0 mmol/L (98-107); Creatinine Clr Calc Pharmacy 31.4 ml/min; Glucose 172.0 mg/dl (70-99(Fasting)); Potassium 4.0 mmol/L (3.5-5.1); Sodium 136.0 mmol/L (136-145)
--- NOTE | 2025-06-11 11:09 | Hospitalist Progress Note ---
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 ED evaluation is concerning for evidence of ROGER and presence of UTI, with prior culture growing out Pseudomonas. Patient will be admitted for ROGER and UTI treatment. #UTI | BPH CTAP: significant wall thickening of urinary bladder which may be due to decompression, chronic outlet obstruction, and/or cystitis. brachytherapy beads in prostate gland CBC w/o leukocytosis, BMP w/ downtrending creatinine. UCx on 06/06 consistent with pansensitive pseudomonas Cefepime 2000 mg IV x 4 days Will transition to ciprofloxacin d/t concerns for slurred speech and confusion on 06/11 Patient's reports he has taken ciprofloxacin in the past, and tolerated it well Initiate ciprofloxacin 500 mg p.o. BID; QTc okay at 447 Continue dutasteride Tylenol PRN for pain/fever Urology consult appreciated Will likely require antibiotics 10 to 14 days Maintain Adan catheter; scheduled for possible voiding trial on 06/14 in urology clinic #Altered mental status Overnight 06/09 - did exhibit signs of agitation - supportive care for now w/ re- direction, sleep-wake cycles, & family presence Slurred speech noted by on the morning of 06/11 No facial droop or unilateral deficits appreciated on clinical exam Suspect combination of IV cefepime + prolonged hospital stay leading to hospital delirium #Orthostatic hypotension | Dizziness | N/V N/V may be secondary to orthostasis vs vertigo ( reports hx) vs underlying gastroparesis/on semaglutide. On 06/09 he had episode w/ PT where he was ambulating, became pale/dizzy & got back to bed. Had an episode of emesis. Was unable to get BP at that time secondary to machine malfunction. Following event, started Midodrine 2.5mg TID Orthostatics 06/10: lying 126/82, sitting 121/80, standing 107/68. --> continue to re-eval daily to monitor for improvement. KUB 06/10 - mild fecal retention - ruled out constipation but did add scheduled stool softener secondary to hx of constipation. Miralax prn. Reglan 5mg PO ACHS added; Zofran prn for breakthrough nausea/vomiting. 06/11: patient reports resolution of N/V on Reglan Meclizine PRN BID for dizziness Continue PPI & Pepcid Consider outpatient gastroparesis study upon discharge #Ambulatory dysfunction PT/OT evaluations appreciated Recommending acute rehab upon discharge Fall precautions CM following Referral sent to the [facility], [facility], and [facility] on 06/09; awaiting responses #ROGER (improving) Likely secondary to obstruction/UTI Daily Adan catheter management Baseline creatinine around ~1.6 Creatinine 2.42 on admission --> downtrending to 1.91 Bladder scan PRN s/p IVF #Pleural effusions Has history of, was admitted to [facility] "weeks ago" for such and was treated with Lasix and ultimately discharged. Still takes furosemide daily. H/o CHF per . CXR WNL Echo: EF 60-65%; mild pulm regurg; mild tricuspid regurg; trace aortic regurg. Caution excess IVF w/ this hx #T2DM Most recent A1C at 7.2% in 04/2025 H/o DMT2, at home regimen include pioglitazone and semaglutide. (hold while inpatient) SSI with target BSG range 110-160mg/dL, CF 35, carb ratio deferred BSG ACHS Adjust regimen as needed #Afib- EKG at admission Afib, rate controlled; Watchman completed in February 2025; On ASA, metoprolol - Continue #HLD- Atorvastatin - continue #Psych- Bupropion - continue #GERD- Omeprazole - continue Dispo: Continued stay on MedSurg; patient will likely need acute rehab upon discharge, CM following VTE Prophylaxis: SCDs, Heparin BID Updated at bedside 06/10. Admission and Anticipated Discharge Date Admission Date: June 07, 2025 Subjective Mr. Rivero is sitting upright in bed this morning in no acute distress. He reports that the last time he vomited was yesterday morning, and he has had no nausea or vomiting since starting Reglan yesterday. His (Bartolome) is bedside and provides additional history. She reports that he has been having slurred speech this morning, which is new from yesterday. No prior history of strokes. She also has concerns that he has not been eating well for the past week, largely due to his nausea and vomiting. Patient does have a history of vertigo, and when he stands up, he reports that he feels both dizziness like the room is spinning, as well as lightheadedness. Patient does have a history of UTIs, but does not have the classical symptoms (burning with urination, lower back pain, dysuria, etc.). expresses concerns that the patient is still too weak to return home at this time, and is requesting acute rehab. ROS: Patient endorses lightheadedness when standing x 3 weeks, slurred speech, and dyspnea on exertion (ongoing). The patient denies fever, chills, night sweats, headache, changes in vision, tinnitus, facial droop, unilateral deficits, chest pain, SOB at rest, pleuritic CP, nausea/vomiting (resolved), burning with ration, dysuria, blood in the urine or stool, or numbness or tingling in the arms or legs. Physical Exam Physical Exam: General: no acute distress; pleasant affect; at bedside; non-toxic a ppearing; well-nourished; cooperative; SpO2 95% on RA HEENT: normocephalic, atraumatic; no scleral icterus; PERRLA w/ EOMs intact; vision intact; hard of hearing; patient demonstrates ability to smile, frown, and lift eyebrows without unilateral deficits; patient demonstrated to protrude and wiggle tongue bilaterally without unilateral deficits Neck: supple; trachea midline; rotating neck left and right does produce dizziness Skin: warm, dry without signs of tenting; no cyanosis; no rashes, bruising, lesions, or erythema noted CV: chest wall NTP; RRR; S1/S2 normal; no murmurs/rubs/gallops; pulses intact and symmetric at radial, DP, and PT Lungs: no acute respiratory distress; symmetrical chest wall expansion; clear breath sounds across all lung guerra w/o adventitious sounds; no wheezing ABD: Soft, NTP; BS present; no rebound/guarding; no distention MSK: no tics or fasciculations; no edema noted in the LEs b/l, nonerythematous; 5/5 process chemist strength bilaterally; patient demonstrates ability to wiggle toes and lift legs off the bed with 3/5 strength bilaterally Neuro: A&Ox3; normal mood and affect; patient does exhibit mildly slurred speech, but is understandable for the most part; patient will occasionally exhibit incoherent thought processes; no facial droop appreciated; no unilateral deficits appreciated; sensation intact and symmetric in the face, upper, and lower extremities bilaterally; negative pronator drift Results & Data Results & Data Vital Signs (Past 12 Hours) Vital Signs Temp Pulse Resp BP Pulse Ox O2 Del Method 06/11/25 07:13 36.6 C 85 15 150/90 H 95 Room Air 06/11/25 01:06 36.6 C 84 18 131/67 94 Room Air PG Care Time/CCT Total # of Minutes Spent Total Time Spent with Patient: Total time spent is greater than 50% in coordination of care (as documented) at patient's floor/unit and/or counseling patient: Coding [place] [address] SUB INP/OBS CARE 3/50MIN Patient Type Established History Comprehensive Exam Comprehensive Medical Decision Making High Complexity Diagnoses Urinary tract infection N39.0 Acute kidney injury N17.9 Pleural effusion J90 Type 2 diabetes mellitus E11.9 Ambulatory dysfunction R26.2 Altered mental status R41.82
[2025-06-11] MEDS: CIPROFLOXACIN 500 MG TAB PO STA (11:41)
[2025-06-11] MEDS ORDERED: ONDANSETRON INJ 2 MG/ML 2 ML VIAL IV PRN (18:58)
[2025-06-11] MEDS: CIPROFLOXACIN 500 MG TAB PO SCH (20:11)
[2025-06-11] MEDS: FAMOTIDINE 20MG IV PUSH 20 MG/5 ML SYR IV STA (20:14)
[2025-06-11] MEDS: ONDANSETRON INJ 2 MG/ML 2 ML VIAL IV STA (20:15)
--- NOTE | 2025-06-12 09:27 | Hospitalist Progress Note ---
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 ED evaluation is concerning for evidence of ROGER and presence of UTI, with prior culture growing out Pseudomonas. Patient will be admitted for ROGER and UTI treatment. #Altered mental status | hospital-acquired delirium | Agitation Overnight 06/09 - did exhibit signs of agitation - supportive care for now w/ re- direction, sleep-wake cycles, & family presence Slurred speech noted by on the morning of 06/11 No facial droop or unilateral deficits appreciated on clinical exam Patient then had an additional episode of agitation/aggression on the morning of 06/12 Threatening to hit any hospital staff that entered his room Did not recognize his on arrival Suspect multifactorial: Hospital medications (?Reglan) + prolonged stay leading to hospital acquired delirium Discontinue Reglan BSG WNL Recommended sleep-wake cycle, rehydration when possible, and supportive care Recommend family bring in photos to assist with creating a familiar environment Quetiapine 25 mg p.o. HS PRN (1st line) for aggression/agitation Olanzapine 5 mg ODT or IM PRN (2nd line) for aggression/agitation Communication order / touched base with nursing staff: do NOT give both quetiapine and olanzapine together While no neurologic deficits were appreciated on physical exam yesterday on 06/11, will obtain head CT if persistent AMS throughout the day Repeat EKG ordered to assess QTc #UTI CTAP: significant wall thickening of urinary bladder which may be due to decompression, chronic outlet obstruction, and/or cystitis. brachytherapy beads in prostate gland CBC w/o leukocytosis, BMP w/ downtrending creatinine. UCx on 06/06 consistent with pansensitive pseudomonas Cefepime 2000 mg IV x 4 days Will transition to ciprofloxacin d/t concerns for slurred speech and confusion on 06/11 Patient's reports he has taken ciprofloxacin in the past, and tolerated it well Initiate ciprofloxacin 500 mg p.o. BID; QTc okay on arrival at [facility] Continue dutasteride Tylenol PRN for pain/fever Urology consult appreciated Will likely require antibiotics 10 to 14 days Maintain Adan catheter; scheduled for possible voiding trial on 06/14 in urology clinic #Orthostatic hypotension | Dizziness | N/V | ? Gastroparesis N/V may be secondary to orthostasis vs vertigo ( reports hx) vs underlying gastroparesis/on semaglutide. On 06/09 he had episode w/ PT where he was ambulating, became pale/dizzy & got back to bed. Had an episode of emesis. Was unable to get BP at that time secondary to machine malfunction. Following event, started Midodrine 2.5mg TID Still experiencing nausea/vomiting on 06/11 Reglan discontinued (as above) Compazine 5 mg IV q6h PRN for nausea/vomiting Meclizine PRN BID for dizziness Continue PPI & Pepcid Could trial sucralfate if refractory to above measures Recommend OP gastroparesis studies upon discharge #Ambulatory dysfunction PT/OT evaluations appreciated Recommending acute rehab upon discharge Fall precautions CM following Referrals out to [facility], [facility], and [facility]; awaiting responses No updates available on 06/12 #ROGER Creatinine 2.42 on admission --> downtrended to 1.76 -> 2.13 Likely secondary to obstruction/UTI on admission, but now uptrending; ?may be pre-renal d/t secondary to poor PO intake / dehydration Additional LR 500mL IV x 1 Furosemide remains on hold Daily Adan catheter management Baseline creatinine around ~1.6 Bladder scan PRN #Pleural effusions Has history of, was admitted to [facility] "weeks ago" for such and was treated with Lasix and ultimately discharged. Still takes furosemide daily. H/o CHF per . CXR WNL Echo: EF 60-65%; mild pulm regurg; mild tricuspid regurg; trace aortic regurg. Caution excess IVF w/ this hx #T2DM Most recent A1C at 7.2% in 04/2025 H/o DMT2, at home regimen include pioglitazone and semaglutide (hold while inpatient) SSI with target BSG range 110-160mg/dL, CF 35, carb ratio deferred BSG ACHS Adjust regimen as needed #Afib- EKG at admission Afib, rate controlled; Watchman completed in February 2025; On ASA, metoprolol - Continue #HLD- Atorvastatin - continue #Psych- Bupropion - continue #GERD- Omeprazole - continue Dispo: Continued stay on MedSur; patient will likely need acute rehab upon discharge, CM following VTE Prophylaxis: SCDs, Heparin BID Updated and son at bedside on 06/12 Admission and Anticipated Discharge Date Admission Date: June 07, 2025 Subjective Received call from nursing staff around 0850 the patient was becoming increasingly agitated/aggressive towards staff. Patient also reportedly refused a.m. lab draws and medications. Spoke with patient's outside the room. She reports that he did well yesterday from around 2 to 4 PM while she was visiting. Then after he received his 4:30 PM medications, he became increasingly confused with slurred speech. He reported feeling like "bugs were crawling" on him. He also had an event around 6:30 PM after eating his dinner where he was dry heaving. No choking while eating food, but he did report nausea approximately 20-30 minutes after eating. Nursing staff reported he slept well last night, but then he woke this morning and was again confused, and threatening to hit medical staff. When arrived this morning, he did not recognize her, and told her to get out of the room. Patient is aggressive towards staff on entering room, threatening to hit them if they do not get out of the room. Unable to obtain ROS at this time. Addendum at 1430: Reassessed patient at bedside. Patient is calm/cooperative, and engages in full conversation. He was amenable to taking his morning medications around 1 PM. Family at bedside report his demeanor is much improved from earlier. Patient reports he is not having any abdominal pain or nausea after eating his lunch. He ate approximately half of his meal. He denies any chest pain, SOB, or urinary complaints at this time. He was able to ambulate with PT this afternoon, and does report he had trouble getting out of bed, but did all right ambulating with a walker in the hallways afterwards. He is still feeling quite weak. Review of Systems Review of Systems: See HPI above Physical Exam Physical Exam: Physical exam initially declined at 1000 Patient reexamined at 1430 General: no acute distress; son and at bedside; patient with pleasant affect; non-toxic appearing; cooperative; SpO2 97% on RA HEENT: normocephalic, atraumatic; no scleral icterus; PERRLA; vision intact; hard of hearing Neck: supple; trachea midline Skin: warm, dry without signs of tenting; no cyanosis; no rashes, bruising, lesions, or erythema noted CV: chest wall NTP; RRR; S1/S2 normal; no murmurs/rubs/gallops; pulses intact and symmetric at radial, DP, and PT Lungs: no acute respiratory distress; symmetrical chest wall expansion; clear breath sounds across all lung guerra w/o adventitious sounds; no wheezing ABD: Soft, NTP; BS present; no rebound/guarding; no distention MSK: no tics or fasciculations; no edema noted in the LEs b/l, nonerythematous; 5/5 acetone button paster strength bilaterally; 5/5 strength in the lower extremes bilaterally with plantarflexion/dorsiflexion of the ankles as well as lifting legs off the bed Neuro: Oriented to name and date of ; not oriented to location or purpose in the hospital; normal mood and affect; speech is slightly slurred; no facial droop appreciated; no focal deficits appreciated; patient reports sensation is intact and symmetric in the lower extremities bilaterally assessed via light touch Results & Data Results & Data Vital Signs (Past 12 Hours) Vital Signs Temp Pulse Resp BP Pulse Ox O2 Del Method 06/11/25 23:00 36.6 C 72 18 139/87 93 Room Air PG Care Time/CCT Total # of Minutes Spent Total Time Spent with Patient: Total time spent is greater than 50% in coordination of care (as documented) at patient's floor/unit and/or counseling patient: [place] [address] SUB INP/OBS CARE 3/50MIN Patient Type Established History Comprehensive Exam Comprehensive Medical Decision Making High Complexity Diagnoses Urinary tract infection N39.0 Acute kidney injury N17.9 Pleural effusion J90 Type 2 diabetes mellitus E11.9 Ambulatory dysfunction R26.2 Altered mental status R41.82
[2025-06-12] MEDS ORDERED: PROCHLORPERAZINE 5 MG in SYRINGE 4 ML IV PRN (13:40)
[2025-06-12 14:12] LABS: Hematocrit (blood only) 37.6 % (42.0-52.0); Hemoglobin 12.6 g/dl (14.0-18.0); Immature Granulocytes # (auto) 0.03 K/uL (0.01-0.20); Immature Granulocytes % (auto) 0.3 %; Mean Corpuscular Hemoglobin 31.3 pg (25.0-34.0); Mean Corpuscular Volume 93.5 fL (80.0-100.0); Platelet Count 215 K/uL (130-400); RDW Standard Deviation 50.6 fL (36.4-46.3); Red Blood Count 4.02 M/uL (4.70-6.10); White Blood Count 8.83 K/ul (4.8-10.8)
[2025-06-12 14:30] LABS: Anion Gap 8.0 (3-11); Blood Urea Nitrogen 23.0 mg/dl (6-23); Calcium 9.3 mg/dl (8.6-10.3); Carbon Dioxide 25.0 mmol/L (21-32); Chloride 104.0 mmol/L (98-107); Creatinine Clr Calc Pharmacy 28.2 ml/min; Glucose 198.0 mg/dl (70-99(Fasting)); Potassium 4.5 mmol/L (3.5-5.1); Sodium 137.0 mmol/L (136-145)
[2025-06-12] MEDS: LACTATED RINGER'S 500 ML IV SCH (16:21)
[2025-06-13 09:09] LABS: Hematocrit (blood only) 36.1 % (42.0-52.0); Hemoglobin 12.2 g/dl (14.0-18.0); Mean Corpuscular Hemoglobin 31.5 pg (25.0-34.0); Mean Corpuscular Volume 93.3 fL (80.0-100.0); Platelet Count 193 K/uL (130-400); RDW Standard Deviation 50.2 fL (36.4-46.3); Red Blood Count 3.87 M/uL (4.70-6.10); White Blood Count 8.20 K/ul (4.8-10.8)
[2025-06-13 09:26] LABS: Anion Gap 6.0 (3-11); Blood Urea Nitrogen 26.0 mg/dl (6-23); Calcium 9.3 mg/dl (8.6-10.3); Carbon Dioxide 26.0 mmol/L (21-32); Chloride 107.0 mmol/L (98-107); Creatinine Clr Calc Pharmacy 29.3 ml/min; Glucose 135.0 mg/dl (70-99(Fasting)); Magnesium 2.1 mg/dl (1.7-2.4); Potassium 3.9 mmol/L (3.5-5.1); Sodium 139.0 mmol/L (136-145)
--- NOTE | 2025-06-13 10:18 | Hospitalist Progress Note ---
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 ED evaluation is concerning for evidence of ROGER and presence of UTI, with prior culture growing out Pseudomonas. Patient will be admitted for ROGER and UTI treatment. #Altered mental status | hospital-acquired delirium | Agitation Recurrent episodes of agitation/aggression while in the hospital One morning, patient did not recognize his Suspect multifactorial: Hospital medications (?Reglan) + prolonged stay leading to hospital acquired delirium Discontinue Reglan Recommended sleep-wake cycle, rehydration when possible, and supportive care Recommend family bring in photos to assist with creating a familiar environment Overnight event on 06/12: Per review of nursing note, at approximately 2330, patient became agitated, was kicking staff, and attempting to get out of bed Olanzapine 5 mg IM x 1 administered due to aggression/agitation Quetiapine 25 mg p.o. x 1 have been given approximately 3 hours earlier at 2030 Patient exhibiting extrapyramidal symptoms on the morning of 06/13 (involuntary muscle jerks/spasms, motor restlessness, etc.) He still exhibits the ability to follow commands, and does endorse understanding, but has difficulty with communication & garbled speech Updated at bedside on 06/[address] on 06/13 revealed no acute findings Discontinue further quetiapine/olanzapine Trial of Benadryl 12.5 mg IV x 1 this evening Recommend additional Benadryl if symptoms persist Thiamine 100 mg IV QAM #UTI CTAP: significant wall thickening of urinary bladder which may be due to decompression, chronic outlet obstruction, and/or cystitis. brachytherapy beads in prostate gland CBC w/o leukocytosis, BMP w/ downtrending creatinine. UCx on 06/06 consistent with pansensitive pseudomonas Cefepime 2000 mg IV x 4 days Will transition to ciprofloxacin d/t concerns for slurred speech and confusion on 06/11 Patient's reports he has taken ciprofloxacin in the past, and tolerated it well Ciprofloxacin 500 mg p.o. BID started on 06/12; QTc 486 Continue dutasteride Tylenol PRN for pain/fever Urology consult appreciated Will likely require antibiotics 10 to 14 days Maintain Adan catheter; scheduled for possible voiding trial on 06/14 in urology clinic #Orthostatic hypotension | Dizziness | N/V | ? Gastroparesis N/V may be secondary to orthostasis vs vertigo ( reports hx) vs underlying gastroparesis/on semaglutide. On 06/09 he had episode w/ PT where he was ambulating, became pale/dizzy & got back to bed. Had an episode of emesis. Was unable to get BP at that time secondary to machine malfunction. Following event, started Midodrine 2.5mg TID Still experiencing nausea/vomiting on 06/11 Reglan discontinued (as above) Compazine 5 mg IV q6h PRN for nausea/vomiting Meclizine PRN BID for dizziness Continue PPI & Pepcid Could trial sucralfate if refractory to above measures Recommend OP gastroparesis studies upon discharge #Ambulatory dysfunction PT/OT evaluations appreciated Recommending acute rehab upon discharge Fall precautions CM following Referrals out to [facility], [facility], and [facility]; awaiting responses Given patient require IM olanzapine on 06/12, suspect this will affect discharge planning #ROGER Creatinine 2.42 on admission --> downtrended to 1.76 -> 2.13 -> 2.05 Likely secondary to obstruction/UTI on admission, but I am trending may be due to prerenal ROGER in the setting of poor p.o. intake/dehydration Additional IVF LR at 100mL/hr x 1L on 06/13 Furosemide remains on hold Daily Adan catheter management Baseline creatinine around ~1.6 Bladder scan PRN #Pleural effusions Has history of, was admitted to [facility] "weeks ago" for such and was treated with Lasix and ultimately discharged. Still takes furosemide daily. H/o CHF per . CXR WNL Echo: EF 60-65%; mild pulm regurg; mild tricuspid regurg; trace aortic regurg. Caution excess IVF w/ this hx #T2DM Most recent A1C at 7.2% in 04/2025 H/o DMT2, at home regimen include pioglitazone and semaglutide (hold while inpatient) SSI with target BSG range 110-160mg/dL, CF 35, carb ratio deferred BSG ACHS Adjust regimen as needed #Afib- EKG at admission Afib, rate controlled; Watchman completed in February 2025; On ASA, metoprolol - Continue #HLD- Atorvastatin - continue #Psych- Bupropion - continue #GERD- Omeprazole - continue Dispo: Continued stay on MedSurg; patient will likely need acute rehab upon discharge, CM following VTE Prophylaxis: SCDs, Heparin BID Updated at bedside on 06/13 Admission and Anticipated Discharge Date Admission Date: June 07, 2025 Subjective Patient appears severely altered this morning after receiving Seroquel and olanzapine overnight. Per nursing, he was try to get up out of bed around 2330, and given olanzapine shortly after being given Seroquel. This morning, he is able to follow commands, but his speech is slurred, and he exhibits a distant gaze. Poor historian at this time. Unable to obtain ROS in setting of AMS. Review of Systems Review of Systems: See HPI above Physical Exam Physical Exam: General: no acute distress; altered mental status; non-toxic appearing; well- nourished; cooperative; SpO2 93% on RA HEENT: normocephalic, atraumatic; no scleral icterus; PERRLA w/ EOMs intact; unable to assess vision and hearing Neck: supple; no lymphadenopathy; trachea midline Skin: warm, dry without signs of tenting; no cyanosis; no rashes, bruising, lesions, or erythema noted CV: chest wall NTP; RRR; S1/S2 normal; no murmurs/rubs/gallops; pulses intact and symmetric at radial, DP, and PT Lungs: no acute respiratory distress; symmetrical chest wall expansion; clear breath sounds across all lung guerra w/o adventitious sounds; no wheezing ABD: Soft, NTP; BS present; no rebound/guarding; no distention MSK: Patient exhibiting muscle spasms/contractions as well as jerking of the upper extremities; no edema noted in the LEs b/l, nonerythematous; 5/5 mobility developer strength bilaterally Neuro: Not oriented to name, place, or ; flat mood/affect; involuntary movements of the upper extremities; gazing into distance with mouth jar; garbled speech; patient does respond to some commands, such as gripping the fingers, wiggling toes, and lifting leg; unable to assess sensation Results & Data Results & Data Vital Signs (Past 12 Hours) Vital Signs Temp Pulse Resp BP BP Pulse Ox O2 Del Method 06/13/25 07:35 Room Air 06/13/25 07:15 36.5 C 81 17 144/72 H 93 Room Air 06/12/25 23:04 36.6 C 88 18 144/89 H 94 Room Air PG Care Time/CCT Total # of Minutes Spent Total Time Spent with Patient: Total time spent is greater than 50% in coordination of care (as documented) at patient's floor/unit and/or counseling patient: Coding [place] [address] SUB INP/OBS CARE 3/50MIN Patient Type Established History Comprehensive Exam Comprehensive Medical Decision Making High Complexity Diagnoses Urinary tract infection N39.0 Acute kidney injury N17.9 Pleural effusion J90 Type 2 diabetes mellitus E11.9 Ambulatory dysfunction R26.2 Altered mental status R41.82
[2025-06-13] MEDS: THIAMINE HCL 100 MG in SYRINGE 9 ML IV STA (10:35)
--- NOTE | 2025-06-13 10:36 | CT Scan Report ---
CT SCAN OF THE BRAIN WITHOUT IV CONTRAST CLINICAL HISTORY: Altered mental status. COMPARISON STUDY: None. TECHNIQUE: Unenhanced axial CT scan of the brain was performed from the vertex to the skull base. A dose lowering technique was utilized adhering to the principles of ALARA. CT DOSE: 2897.09 mGy.cm FINDINGS: This exam is mildly compromised by motion artifact. No acute intracranial hemorrhage, midli ne shift or mass effect is present. Dilatation of the lateral and third ventricles is likely due to a trophy. There is proportional to sulcal enlargement. Basal cisterns are patent. There are no extra-ax ial collections. White matter hypodensity suggests small vessel disease. There are no findings to sug gest acute dural sinus thrombosis or acute territorial infarct. No evidence for acute sinusitis. No m astoid effusion. IMPRESSION: 1. No acute intracranial findings. Mild motion artifact. 2. Moderate atrophy and mild small vessel disease. ACT 112: Negative or not required by law. Electronically signed by: Juan Arriaga M.D. 06/13/2025 10:34 AM
[2025-06-13] MEDS: LACTATED RINGER'S 1,000 ML IV SCH (16:31)
[2025-06-13] MEDS: diphenhydrAMINE 50 MG/ML VIAL IV STA ×4 (18:25→23:13)
[2025-06-13] MEDS: CIPROFLOXACIN / D5W 400 MG/200 ML BAG IV SCH (23:41)
[2025-06-14] MEDS: LACTATED RINGER'S 1,000 ML IV SCH ×2 (01:13→11:59)
--- NOTE | 2025-06-14 05:18 | Communication Note ---
Date of Service: June 14, 2025 S/O: Patient w/ continued random and/or involuntary movements of UE's and to a lesser extent the LE's, overnight that were only temporarily relieved after administration of diphenhydramine, 25 mg, IV dose following diphenhydramine, 12.5 mg x 2 doses earlier in evening. Patient also appears to be seeing things, swatting at things in his field of vision, responding to internal stimuli. Patient's capacity to engage in conversation or to even verbalize his own thoughts has markedly declined over the past several nights. A/P: Patient's movements could be consistent with EPS (chorea-like movements but no lip-smacking, facial grimacing), but only a relatively low dose of antipsychotics have been given to this point. Diphenhydramine was started to pre vent these Sx, but a VMAT2 inhibitor, like deutetrabenazine, could also be considered (and wouldn't be anti-cholinergic). Patient's delirium is likely multifactorial at this stage, secondary to UTI, [facility] stays over past months/unfamiliar environments, sleep deprivation, age-related decreased delirium threshold, and possibly polypharmacy. Although 62.5 mg, IV, diphenhydramine was given o/n to help w/ EPS and help patient get some sleep, one drawback would be its anticholinergic properties. Meclizine was held d/t to its anticholinergic properties. Less likely, patient's movements could be due to seizure activity. Since both antipsychotics and Wellbutrin can lower seizure threshold, I am lowering the dose of Wellbutrin to 150 mg, AM (since medication should be tapered); antipsyc hotics were already stopped. There is some evidence in literature that Wellbutrin decreases CYP2D6 expression (responsible for metabolizing antipsychotics), which could explain rapid onset of EPS with so little dosing of antipsychotics. It may also be beneficial to get some input from a Psych or Neuro consult regarding the EPS.
[2025-06-14] MEDS: diphenhydrAMINE 50 MG/ML VIAL IV STA ×2 (05:29→22:25)
[2025-06-14] MEDS: THIAMINE HCL 100 MG in SYRINGE 9 ML IV SCH (07:54)
--- NOTE | 2025-06-14 08:14 | Hospitalist Progress Note ---
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 ED evaluation is concerning for evidence of ROGER and presence of UTI, with prior culture growing out Pseudomonas. Patient will be admitted for ROGER and UTI treatment. #Altered mental status | hospital-acquired delirium | Agitation | Polypharmacy Recurrent episodes of agitation/aggression while in the hospital Suspected to have hospital-acquired delirium, as 1 morning he did not recommend his Suspect multifactorial: Hospital medications (?Reglan) + prolonged stay leading to hospital acquired delirium Reglan was subsequently discontinued For hospital acquired delirium, recommend sleep-wake cycle, rehydration when possible, and supportive care Family presence appreciated Continue thiamine 100 mg IV QAM Patient began exhibiting extrapyramidal symptoms on the morning of 06/13 (involuntary muscle jerks/spasms, motor restlessness, etc.); received olanzapine and Seroquel the night prior He still exhibits the ability to follow commands, but patient is largely nonverbal with garbled speech on 06/14 Updated and son at bedside on 06/13 and 06/[address] on 06/13 revealed no acute findings Further quetiapine/olanzapine has been discontinued Patient received Benadryl 62.5 mg IV overnight on 06/13 N.p.o. status P.o. medications converted to IV where possible Metoprolol tartrate 5 mg IV q12h + additional doses for sustained HR >130bpm Transfer to PCU telemetry Protonix 40 mg IV BID Acetaminophen 1000 mg PRN Patient has been unable to eat food for the past 24 to 48 hours TPN discussed with family on 06/14 Patient's is planning to bring in advance directive prior to this and making Continue IVF with LR at 100mL/hr for now While seizure is less likely, touched base with neurology on 06/14 Could potentially get bromocriptine; however, will defer in the setting of polypharmacy Psychiatry consult appreciated Brain MRI without contrast ordered to assess for stroke/seizure Avoid further sedation prior to MRI EEG awake/drowsy ordered to assess for seizure-like activity #UTI CTAP: significant wall thickening of urinary bladder which may be due to decompression, chronic outlet obstruction, and/or cystitis. brachytherapy beads in prostate gland CBC w/o leukocytosis, BMP w/ downtrending creatinine UCx on 06/06 consistent with pansensitive pseudomonas Cefepime 2000 mg IV x 4 days Continue ciprofloxacin IV (renally dosed) Continue dutasteride Tylenol PRN for pain/fever Urology consult appreciated Will likely require antibiotics 10 to 14 days #Orthostatic hypotension | Dizziness | N/V | suspected gastroparesis N/V may be secondary to orthostasis vs vertigo ( reports hx) vs underlying gastroparesis/on semaglutide. On 06/09 he had episode w/ PT where he was ambulating, became pale/dizzy & got back to bed. Had an episode of emesis. Was unable to get BP at that time secondary to machine malfunction. Following event, started Midodrine 2.5mg TID Still experiencing nausea/vomiting on 06/11 Reglan discontinued (as above) Compazine 5 mg IV q6h PRN for nausea/vomiting Meclizine PRN BID for dizziness Continue PPI & Pepcid Could trial sucralfate if refractory to above measures Recommend OP gastroparesis studies upon discharge #Ambulatory dysfunction PT/OT evaluations appreciated Recommending acute rehab upon discharge Fall precautions CM following Referrals out to [facility], [facility], and [facility]; awaiting responses Given patient require IM olanzapine on 06/12, suspect this will affect discharge planning #ROGER Creatinine 2.42 on admission --> current 2.18 on 06/14 Likely secondary to obstruction/UTI on admission, but also may be due to prerenal ROGER in the setting of poor p.o. intake/dehydration IVF placement as needed Furosemide remains on hold Daily Adan catheter management Baseline creatinine around ~1.6 Bladder scan PRN #Pleural effusions Has history of, was admitted to [facility] "weeks ago" for such and was treated with Lasix and ultimately discharged. Still takes furosemide daily. H/o CHF per . CXR WNL Echo: EF 60-65%; mild pulm regurg; mild tricuspid regurg; trace aortic regurg. Caution excess IVF w/ this hx #T2DM Most recent A1C at 7.2% in 04/2025 H/o DMT2, at home regimen include pioglitazone and semaglutide (hold while inpatient) SSI with target BSG range 110-160mg/dL, CF 35, carb ratio deferred BSG q6h while NPO Adjust regimen as needed #Afib- EKG at admission Afib, rate controlled; Watchman completed in February 2025; On ASA, metoprolol Discussed with Dr. Mason and will defer DE aspirin while NPO Brain MRI pending (as above) #HLD- Atorvastatin #Psych- Bupropion #GERD- Omeprazole Dispo: Patient transferred to PCU telemetry on 06/14 Nonverbal / unable to take p.o. medication Telemetry required for IV metoprolol VTE Prophylaxis: SCDs, Heparin BID Admission and Anticipated Discharge Date Admission Date: June 07, 2025 Subjective Mr. Rivero is largely nonverbal this morning. He is unable to provide a history. This represents an acute decline from earlier in his hospitalization. and son at bedside report that the patient's status is largely remained unchanged. While his akathisia is in muscle spasms seem to improve after receiving IV Benadryl overnight, he continues to gain off into distance with mild ajar, motor restlessness, and occasional twitching. Unable to obtain ROS at this time. Addendum at 1800: Patient seen at bedside in conjunction with Dr. Mason. Family was provided information regarding possible causes of patient's acute decline in cognition, among them being polypharmacy, metabolic encephalopathy in the setting of UTI, and stroke. While less likely, we did reach out to our neurology team to discuss the possibility of seizure-like activity. No reported loss of urinary continence or tongue biting. While patient does continue to have episodes of agitation, will attempt to obtain an MRI at this time (family in agreement with this decision). Patient has been unable to take p.o. intake for the past 48 hours at this point. Did discuss TPN with family at bedside. Patient's reports she has medical proxy, and will bring in medical power of attorney lawyer paperwork as well as advanced directive. She is unsure if he would want total parentarel nutrition. Risks/benefits of TPN discussed with patient at bedside (including the risk for infection via PEG tube placement). Recommended that, if patient's status remains unchanged over next 24 hours, we need to readdress TPN. Review of Systems Review of Systems: See HPI above Physical Exam Physical Exam: General: Acutely altered; patient gazing off to the distance with mouth jar; nontoxic appearing; frail-appearing; SpO2 91% on RA HEENT: normocephalic, atraumatic; PERRLA; unable to assess vision and hearing Neck: supple; no lymphadenopathy; trachea midline Skin: warm, dry without signs of tenting; no cyanosis; no rashes, bruising, lesions, or erythema noted CV: chest wall NTP; RRR; S1/S2 normal; no murmurs/rubs/gallops; pulses intact and symmetric at radial, DP, and PT Lungs: no acute respiratory distress; symmetrical chest wall expansion; clear breath sounds across all lung guerra w/o adventitious sounds; no wheezing ABD: Soft, NTP; BS present; no rebound/guarding; no distention MSK: Involuntary muscle spasms/contractions as well as jerking of the upper extremities; akathisias; clear dystonic reactions; "gumming" of the lips, but no clear lipsmacking; no clear cogwheeling of the muscles to suggest parkinsonism; no edema noted in the LEs b/l, nonerythematous; 4/5 psychological operations strength bilaterally Neuro: Not oriented to name, place, or ; flat mood/affect; involuntary movements of the upper extremities; occasionally garbled speech; patient may exhibit a mild left-sided right sided facial droop; patient does respond to commands, such as gripping fingers, wiggling toes, lifting legs off the bed; negative pronator drift; unable to assess sensation Results & Data Results & Data Vital Signs (Past 12 Hours) Vital Signs Temp Pulse Resp BP BP Pulse Ox O2 Del Method 06/14/25 07:40 36.1 C L 105 H 20 174/89 H 96 Room Air 06/13/25 22:27 37.3 C 123 H 20 112/80 94 Room Air PG Care Time/CCT Total # of Minutes Spent Total Time Spent with Patient: Total time spent is greater than 50% in coordination of care (as documented) at patient's floor/unit and/or counseling patient: C[place] [address] SUB INP/OBS CARE 3/50MIN Patient Type Established History Comprehensive Exam Comprehensive Medical Decision Making High Complexity Diagnoses Urinary tract infection N39.0 Acute kidney injury N17.9 Pleural effusion J90 Type 2 diabetes mellitus E11.9 Ambulatory dysfunction R26.2 Altered mental status R41.82
[2025-06-14] MEDS ORDERED: ACETAMINOPHEN 1,000 MG/100 ML VIAL IV PRN (09:40)
[2025-06-14] MEDS ORDERED: METOPROLOL TARTRATE 1 MG/ML VIAL IV PRN (09:44)
[2025-06-14 10:10] LABS: Hematocrit (blood only) 33.7 % (42.0-52.0); Hemoglobin 11.6 g/dl (14.0-18.0); Mean Corpuscular Hemoglobin 31.9 pg (25.0-34.0); Mean Corpuscular Volume 92.6 fL (80.0-100.0); Platelet Count 192 K/uL (130-400); RDW Standard Deviation 49.9 fL (36.4-46.3); Red Blood Count 3.64 M/uL (4.70-6.10); White Blood Count 9.13 K/ul (4.8-10.8)
[2025-06-14 10:25] LABS: Anion Gap 7.0 (3-11); Blood Urea Nitrogen 29.0 mg/dl (6-23); Calcium 8.9 mg/dl (8.6-10.3); Carbon Dioxide 24.0 mmol/L (21-32); Chloride 109.0 mmol/L (98-107); Creatinine Clr Calc Pharmacy 27.5 ml/min; Glucose 102.0 mg/dl (70-99(Fasting)); Potassium 4.0 mmol/L (3.5-5.1); Sodium 140.0 mmol/L (136-145)
[2025-06-14] MEDS: PANTOprazole 40 MG/10 ML SYR IV ONE (10:58)
[2025-06-14] MEDS: METOPROLOL TARTRATE 1 MG/ML VIAL IV ONE (11:59)
[2025-06-14] MEDS ORDERED: Nursing to Pharmacy Communication SCH (16:00)
[2025-06-14] MEDS: FAMOTIDINE 20MG IV PUSH 20 MG/5 ML SYR IV SCH (17:22)
[2025-06-14] MEDS: INSULIN ASPART PER UNIT CHARGE SC SCH (19:17)
[2025-06-14 19:36] LABS: Appearance Urine Clear (Clear); Bacteria Urine Automated None Seen (None Seen); Cast Urine Automated 0-2 /lpf (0-2); Epithelial Cell Urine Auto 0-2 /hpf (0-2); Glucose Urine UA Negative (Negative); RBC Urine Automated 0-2 /hpf (0-2); WBC Urine Automated 0-5 /hpf (0-5)
--- NOTE | 2025-06-14 21:32 | Magnetic Resonance Report ---
Exam(s): MRI HEAD EXAM: MR Head Without Intravenous Contrast CLINICAL HISTORY: Reason for exam: ?Lfacial droop, prolonged AMS, tremors. TECHNIQUE: Magnetic resonance images of the head/brain without intravenous contrast in multiple planes. COMPARISON: Prior head CT from June 13, 2025. FINDINGS: Brain: There is increased T2/FLAIR signal at the margins of concerning for transependymal CSF flow. No mass. No hemorrhage. No acute infarct. Ventricles: Moderate ventriculomegaly. Bones/joints: Unremarkable. No acute fracture. Sinuses: Unremarkable as visualized. No acute sinusitis. Mastoid air cells: Unremarkable as visualized. No mastoid effusion. Orbits: Bilateral lens replacements. Proliferation of the intraorbital fat. IMPRESSION: Findings concerning for hydrocephalus. Recommend neurosurgical consult for ventriculostomy shunt placement. Communications: Verify Receipt Electronically signed by: Arely Ulrich MD 06/14/25 21:31 PM
[2025-06-14] MEDS: METOPROLOL TARTRATE 1 MG/ML VIAL IV SCH (22:01)
[2025-06-14] MEDS: PANTOprazole 40 MG/10 ML SYR IV SCH (22:25)
[2025-06-15] MEDS: CIPROFLOXACIN / D5W 400 MG/200 ML BAG IV SCH (00:18)
[2025-06-15] MEDS: diphenhydrAMINE 50 MG/ML VIAL IV STA (03:08)
--- NOTE | 2025-06-15 06:01 | Electrocardiogram Report ---
Test Reason : Blood Pressure : */* mmHG Vent. Rate : 84 BPM Atrial Rate : 277 BPM P-R Int : * ms QRS Dur : 90 ms QT Int : 400 ms P-R-T Axes : * -11 24 degrees QTcB Int : 473 ms Atrial fibrillation Prolonged QT Abnormal ECG When compared with ECG of 07-Jun-2025 17:09, No significant change was found Confirmed by Bart Cisneros ([id number]) on 06/15/2025 6:01:21 AM Referred By: Mike Christiansen Confirmed By: Bart Cisneros
--- NOTE | 2025-06-15 15:42 | Electroencephalogram ---
EEG Procedure Note Date of Service June 15, 2025 Start / End Times Start Time: 6:04 AM End Time: 6:24 AM Referring Physician Felisha History Seizure-like activity, altered mental status Home Medication List Medication Instructions Recorded Confirmed Type magnesium oxide 400 mg PO BID 07/14/21 06/07/25 History multivitamin 1 tab PO QAM 07/14/21 06/07/25 History pioglitazone 45 mg tablet 45 mg PO QAM 07/14/21 06/07/25 History atorvastatin 40 mg tablet 40 mg PO DAILY 12/02/22 06/07/25 History furosemide 20 mg tablet 20 mg PO DAILY 12/02/22 06/07/25 History semaglutide 7 mg tablet (Rybelsus) 7 mg PO DAILY 12/02/22 06/07/25 History dutasteride 0.5 mg capsule 0.5 mg PO DAILY #90 caps 08/29/24 06/07/25 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; impotence, 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 aspirin 81 mg tablet 81 mg PO DAILY 05/09/25 06/07/25 History clopidogrel 75 mg tablet (Plavix) 0 mg PO DAILY 05/09/25 06/07/25 History sulfamethoxazole 800 1 tab PO BID #30 tabs 06/06/25 06/07/25 Rx mg-trimethoprim 160 mg tablet (Bactrim DS) bupropion HCl 150 mg 24 hr tablet, 150 mg PO QAM 06/07/25 06/07/25 History extended release (Wellbutrin XL) bupropion HCl 300 mg 24 hr tablet, 300 mg PO QAM 06/07/25 06/07/25 History extended release (Wellbutrin XL) methenamine hippurate 1 gram tablet 0 g PO BID 06/07/25 06/07/25 History metoprolol succinate 50 mg 50 mg PO DAILY 06/07/25 06/07/25 History tablet,extended release 24 hr omeprazole 20 mg capsule,delayed 20 mg PO BID 06/07/25 06/07/25 History release Inpatient Medication List Aspirin (Aspirin 81 Mg Ectab) 81 mg PO DAILY EMILE Stop: 07/08/25 08:59 Last Admin: 06/15/25 09:37 Dose: Not Given Documented By: Admin: 06/14/25 10:34 Dose: Not Given Documented By: Admin: 06/13/25 07:49 Dose: 81 mg Documented By: JULIO CÉSAR Co-signed By: ESTHER Admin: 06/12/25 13:01 Dose: 81 mg Documented By: Admin: 06/11/25 07:34 Dose: 81 mg Documented By: JULIO CÉSAR Co-signed By: ESTHER Admin: 06/10/25 08:32 Dose: 81 mg Documented By: Admin: 06/09/25 10:02 Dose: 81 mg Documented By: Admin: 06/08/25 08:02 Dose: 81 mg Documented By: AUGUSTINA Atorvastatin Calcium (Atorvastatin 40 Mg Tab) 40 mg PO DAILY EMILE Stop: 07/08/25 08:59 Last Admin: 06/15/25 09:37 Dose: Not Given Documented By: Admin: 06/14/25 10:34 Dose: Not Given Documented By: Admin: 06/13/25 07:49 Dose: 40 mg Documented By: JULIO CÉSAR Co-signed By: ESTHER Admin: 06/12/25 13:01 Dose: 40 mg Documented By: Admin: 06/11/25 07:35 Dose: 40 mg Documented By: JULIO CÉSAR Co-signed By: ESTHER Admin: 06/10/25 08:30 Dose: 40 mg Documented By: Admin: 06/09/25 10:02 Dose: 40 mg Documented By: Admin: 06/08/25 08:02 Dose: 40 mg Documented By: AUGUSTINA Bupropion HCl (Bupropion Xl 150 Mg Tabcr) 150 mg PO QAM EMILE Stop: 07/08/25 08:59 Last Admin: 06/15/25 09:37 Dose: Not Given Documented By: Admin: 06/14/25 10:34 Dose: Not Given Documented By: Admin: 06/10/25 08:35 Dose: 150 mg Documented By: Admin: 06/09/25 10:02 Dose: 150 mg Documented By: Admin: 06/08/25 08:02 Dose: 150 mg Documented By: AUGUSTINA Docusate Sodium (Docusate Sodium 100 Mg Cap) 100 mg PO BID EMILE Stop: 07/10/25 20:59 Last Admin: 06/15/25 09:37 Dose: Not Given Documented By: Admin: 06/14/25 21:57 Dose: Not Given Documented By: Admin: 06/14/25 10:34 Dose: Not Given Documented By: Admin: 06/13/25 23:10 Dose: Not Given Documented By: MLJadiel Admin: 06/13/25 07:50 Dose: Not Given Documented By: JULIO CÉSAR Admin: 06/12/25 20:15 Dose: 100 mg Documented By: keo Admin: 06/12/25 13:01 Dose: 100 mg Documented By: Admin: 06/11/25 20:11 Dose: 100 mg Documented By: Admin: 06/11/25 07:36 Dose: Not Given Documented By: Admin: 06/10/25 21:23 Dose: 100 mg Documented By: JOSE E Finasteride (Finasteride 5 Mg Tab) 5 mg PO DAILY EMILE Stop: 07/08/25 08:59 Last Admin: 06/15/25 09:38 Dose: Not Given Documented By: Admin: 06/14/25 10:35 Dose: Not Given Documented By: Admin: 06/13/25 07:50 Dose: 5 mg Documented By: JULIO CÉSAR Co-signed By: ESTHER Admin: 06/12/25 13:01 Dose: 5 mg Documented By: Admin: 06/11/25 07:37 Dose: 5 mg Documented By: JULIO CÉSAR Co-signed By: ESTHER Admin: 06/10/25 08:32 Dose: 5 mg Documented By: Admin: 06/09/25 10:03 Dose: 5 mg Documented By: Admin: 06/08/25 08:02 Dose: 5 mg Documented By: AUGUSTINA Heparin Sodium (Porcine) (Heparin Sod 5,000 Unit/0.5 Ml Vial) 5,000 units SQ Q12 EMILE Stop: 07/09/25 20:59 Last Admin: 06/15/25 09:26 Dose: 5,000 units Documented By: Admin: 06/14/25 21:57 Dose: 5,000 units Documented By: Admin: 06/14/25 07:54 Dose: 5,000 units Documented By: Admin: 06/13/25 23:10 Dose: Not Given Documented By: MLJadiel Admin: 06/13/25 08:00 Dose: Not Given Documented By: Admin: 06/12/25 20:15 Dose: 5,000 units Documented By: keo Admin: 06/12/25 12:16 Dose: Not Given Documented By: Admin: 06/11/25 20:14 Dose: 5,000 units Documented By: Admin: 06/11/25 07:55 Dose: 5,000 units Documented By: Admin: 06/10/25 21:17 Dose: 5,000 units Documented By: JOSE E Admin: 06/10/25 09:39 Dose: 5,000 units Documented By: Admin: 06/09/25 22:21 Dose: 5,000 units Documented By: MLJadiel Thiamine HCl 100 mg/ Syringe 10 mls @ 2 mls/min IV QAM EMILE Stop: 07/14/25 08:59 Last Admin: 06/15/25 10:08 Dose: 2 mls/min Documented By: Admin: 06/14/25 07:54 Dose: 2 mls/min Documented By: NENA Pantoprazole Sodium (Protonix) 40 mg in 10 mls @ 5 mls/min IV BID EMILE Stop: 07/14/25 20:59 Last Admin: 06/15/25 09:26 Dose: 5 mls/min Documented By: Admin: 06/14/25 22:25 Dose: 5 mls/min Documented By: NING Ciprofloxacin (Cipro / D5w) 400 mg in 200 mls @ 100 mls/hr IV Q24H EMILE; Protocol Stop: 06/23/25 00:00 Last Infusion: 06/15/25 02:35 Dose: Infused Documented By: Admin: 06/15/25 00:18 Dose: 100 mls/hr Documented By: NING Famotidine (Pepcid 20mg Iv Push) 20 mg in 5 mls @ 2.5 mls/min IV Q24H EMILE Stop: 07/08/25 15:59 Last Admin: 06/14/25 17:22 Dose: 2.5 mls/min Documented By: SANTIAGO Lactated Ringer's (Lr) 1,000 mls @ 100 mls/hr IV .Q10H EMILE Stop: 06/17/25 11:44 Last Admin: 06/15/25 10:18 Dose: 100 mls/hr Documented By: Infusion: 06/15/25 10:17 Dose: Infused Documented By: Admin: 06/15/25 00:17 Dose: 100 mls/hr Documented By: Infusion: 06/15/25 00:17 Dose: Infused Documented By: Admin: 06/14/25 11:59 Dose: 100 mls/hr Documented By: KEN Insulin Aspart (Insulin Aspart Per Unit Charge) 0 units SC Q6 EMILE Stop: 07/07/25 20:59 Last Admin: 06/15/25 13:32 Dose: Not Given Documented By: Admin: 06/15/25 05:59 Dose: Not Given Documented By: [facility] [place] Admin: 06/15/25 01:27 Dose: Not Given Documented By: [facility] [place] Admin: 06/14/25 19:17 Dose: Not Given Documented By: SANTIAGO Lorazepam (Lorazepam 2 Mg/1 Ml Vial) 0.5 mg IV Q8H PRN PRN Reason: Anxiety/Agitation Stop: 07/15/25 14:02 Last Admin: 06/15/25 14:53 Dose: 0.5 mg Documented By: AM Magnesium Oxide (Magnesium Oxide 400 Mg Tab) 400 mg PO BID EMILE Stop: 07/07/25 22:59 Last Admin: 06/15/25 09:38 Dose: Not Given Documented By: Admin: 06/14/25 21:57 Dose: Not Given Documented By: Admin: 06/14/25 10:35 Dose: Not Given Documented By: Admin: 06/13/25 23:11 Dose: Not Given Documented By: MLJadiel Admin: 06/13/25 07:50 Dose: 400 mg Documented By: JULIO CÉSAR Co-signed By: ESTHER Admin: 06/12/25 20:16 Dose: 400 mg Documented By: keo Admin: 06/12/25 12:15 Dose: Not Given Documented By: Admin: 06/11/25 20:11 Dose: 400 mg Documented By: Admin: 06/11/25 07:38 Dose: 400 mg Documented By: JULIO CÉSAR Co-signed By: ESTHER Admin: 06/10/25 21:19 Dose: 400 mg Documented By: JOSE E Admin: 06/10/25 08:32 Dose: 400 mg Documented By: Admin: 06/09/25 22:23 Dose: 400 mg Documented By: MLJadiel Admin: 06/09/25 10:03 Dose: 400 mg Documented By: EDZana Admin: 06/08/25 21:48 Dose: 400 mg Documented By: Admin: 06/08/25 08:01 Dose: 400 mg Documented By: Admin: 06/07/25 23:09 Dose: 400 mg Documented By: KARIME Melatonin (Melatonin 3 Mg Tab) 3 mg PO HS PRN PRN Reason: Insomnia Stop: 07/07/25 22:45 Last Admin: 06/11/25 20:19 Dose: 3 mg Documented By: Admin: 06/10/25 21:16 Dose: 3 mg Documented By: JOSE E Admin: 06/09/25 22:22 Dose: 3 mg Documented By: Admin: 06/08/25 21:49 Dose: 3 mg Documented By: DWIGHT Metoprolol Succinate (Metoprolol Succ 50mg Ext Rel Tab) 50 mg PO DAILY EMILE Stop: 07/08/25 08:59 Last Admin: 06/14/25 10:35 Dose: Not Given Documented By: RRBeatriz Admin: 06/13/25 07:51 Dose: 50 mg Documented By: JULIO CÉSAR Co-signed By: ESTHER Admin: 06/12/25 13:00 Dose: 50 mg Documented By: Admin: 06/11/25 07:38 Dose: 50 mg Documented By: JULIO CÉSAR Co-signed By: ESTHER Admin: 06/10/25 08:30 Dose: 50 mg Documented By: Admin: 06/09/25 10:03 Dose: 50 mg Documented By: Admin: 06/08/25 08:02 Dose: 50 mg Documented By: AUGUSTINA Metoprolol Tartrate (Metoprolol Tartrate 1 Mg/Ml Vial) 5 mg IV Q12H EMILE Stop: 07/14/25 20:59 Last Admin: 06/15/25 09:41 Dose: 5 mg Documented By: Admin: 06/14/25 22:01 Dose: 5 mg Documented By: NING Pantoprazole Sodium (Pantoprazole 40 Mg Tab) 40 mg PO BID EMILE Stop: 07/07/25 22:59 Last Admin: 06/14/25 10:35 Dose: Not Given Documented By: Admin: 06/13/25 23:11 Dose: Not Given Documented By: Admin: 06/13/25 07:51 Dose: 40 mg Documented By: JULIO CÉSAR Co-signed By: ESTHER Admin: 06/12/25 20:16 Dose: 40 mg Documented By: keo Admin: 06/12/25 13:01 Dose: 40 mg Documented By: Admin: 06/11/25 20:11 Dose: 40 mg Documented By: Admin: 06/11/25 07:39 Dose: 40 mg Documented By: JULIO CÉSAR Co-signed By: ESTHER Admin: 06/10/25 21:19 Dose: 40 mg Documented By: JOSE E Admin: 06/10/25 08:32 Dose: 40 mg Documented By: Admin: 06/09/25 22:22 Dose: 40 mg Documented By: Admin: 06/09/25 10:03 Dose: 40 mg Documented By: Admin: 06/08/25 21:48 Dose: 40 mg Documented By: Admin: 06/08/25 08:01 Dose: 40 mg Documented By: Admin: 06/07/25 23:09 Dose: 40 mg Documented By: KARIME Polyethylene Glycol (Polyethylene (Miralax) 17 Gm Pack) 17 gm PO DAILY PRN PRN Reason: Constipation Stop: 07/07/25 22:45 Last Admin: 06/08/25 08:02 Dose: 17 gm Documented By: AUGUSTINA Discontinued Medications Acetaminophen (Acetaminophen 325 Mg Tab) 650 mg PO Q4H PRN PRN Reason: pain/fever Stop: 07/07/25 22:45 Last Admin: 06/09/25 22:22 Dose: 650 mg Documented By: DWIGHT Bupropion HCl (Bupropion Xl 300 Mg Tabcr) 300 mg PO QAM EMILE Stop: 07/08/25 08:59 Last Admin: 06/13/25 07:50 Dose: 300 mg Documented By: JULIO CÉSAR Co-signed By: ESTHER Admin: 06/12/25 13:00 Dose: 300 mg Documented By: Admin: 06/11/25 07:36 Dose: 300 mg Documented By: JULIO CÉSAR Co-signed By: ESTHER Admin: 06/10/25 08:29 Dose: 300 mg Documented By: Admin: 06/09/25 10:03 Dose: 300 mg Documented By: Admin: 06/08/25 08:01 Dose: 300 mg Documented By: AUGUSTINA Ciprofloxacin (Ciprofloxacin 500 Mg Tab) 500 mg PO BID EMILE; Protocol Stop: 06/16/25 20:59 Last Admin: 06/13/25 22:30 Dose: Not Given Documented By: Admin: 06/13/25 07:50 Dose: 500 mg Documented By: JULIO CÉSAR Co-signed By: ESTHER Admin: 06/12/25 20:15 Dose: 500 mg Documented By: keo Admin: 06/12/25 13:01 Dose: 500 mg Documented By: Admin: 06/11/25 20:11 Dose: 500 mg Documented By: ROBBIN Ciprofloxacin (Ciprofloxacin 500 Mg Tab) 500 mg PO NOW STA; Protocol Stop: 06/11/25 11:35 Last Admin: 06/11/25 11:41 Dose: 500 mg Documented By: ESTHER Diphenhydramine HCl (Diphenhydramine 50 Mg/Ml Vial) 25 mg IV NOW STA Stop: 06/13/25 18:14 Last Admin: 06/13/25 18:25 Dose: Not Given Documented By: EDWIN Diphenhydramine HCl (Diphenhydramine 50 Mg/Ml Vial) 12.5 mg IV NOW STA Stop: 06/13/25 18:18 Last Admin: 06/13/25 18:28 Dose: 12.5 mg Documented By: EDWIN Diphenhydramine HCl (Diphenhydramine 50 Mg/Ml Vial) 12.5 mg IV NOW STA Stop: 06/13/25 20:09 Last Admin: 06/13/25 20:36 Dose: 12.5 mg Documented By: DWIGHT Diphenhydramine HCl (Diphenhydramine 50 Mg/Ml Vial) 25 mg IV NOW STA Stop: 06/13/25 22:15 Last Admin: 06/13/25 23:13 Dose: 25 mg Documented By: DWIGHT Diphenhydramine HCl (Diphenhydramine 50 Mg/Ml Vial) 12.5 mg IV NOW STA Stop: 06/14/25 05:13 Last Admin: 06/14/25 05:29 Dose: 12.5 mg Documented By: SANTIAGO(2) Diphenhydramine HCl (Diphenhydramine 50 Mg/Ml Vial) 25 mg IV NOW STA Stop: 06/14/25 22:03 Last Admin: 06/14/25 22:25 Dose: 25 mg Documented By: NING Diphenhydramine HCl (Diphenhydramine 50 Mg/Ml Vial) 25 mg IV NOW STA Stop: 06/15/25 02:59 Last Admin: 06/15/25 03:08 Dose: 25 mg Documented By: NING Sodium Chloride (Nss) 1,000 mls @ 999 mls/hr IV .Q1H1M ONE Stop: 06/07/25 17:13 Last Infusion: 06/07/25 17:51 Dose: Infused Documented By: NRKerry Admin: 06/07/25 16:38 Dose: 999 mls/hr Documented By: RACHAEL Cefepime HCl (Maxipime 2000mg) 2,000 mg in 20 mls @ 5 mls/min IV NOW STA; Protocol Stop: 06/07/25 16:18 Last Admin: 06/07/25 16:37 Dose: 5 mls/min Documented By: RACHAEL Lactated Ringer's (Lr) 1,000 mls @ 80 mls/hr IV .[id number] EMILE Stop: 06/08/25 08:59 Last Infusion: 06/08/25 10:58 Dose: Infused Documented By: Admin: 06/07/25 22:56 Dose: 80 mls/hr Documented By: KARIME Cefepime HCl (Maxipime 2000mg) 1,000 mg in 10 mls @ 5 mls/min IV Q12H EMILE; Protocol Stop: 06/18/25 03:59 Last Admin: 06/10/25 03:07 Dose: 5 mls/min Documented By: MLJadiel Admin: 06/09/25 16:35 Dose: 5 mls/min Documented By: Admin: 06/09/25 04:25 Dose: 5 mls/min Documented By: Admin: 06/08/25 15:58 Dose: 5 mls/min Documented By: Admin: 06/08/25 05:19 Dose: 5 mls/min Documented By: KARIME Famotidine (Pepcid 20mg Iv Push) 20 mg in 5 mls @ 2.5 mls/min IV Q12H EMILE Stop: 07/08/25 15:59 Last Admin: 06/14/25 04:18 Dose: Not Given Documented By: MLJadiel Admin: 06/13/25 16:27 Dose: 2.5 mls/min Documented By: Admin: 06/13/25 03:14 Dose: 2.5 mls/min Documented By: Admin: 06/12/25 16:22 Dose: 2.5 mls/min Documented By: Admin: 06/12/25 05:49 Dose: Not Given Documented By: Admin: 06/11/25 17:00 Dose: 2.5 mls/min Documented By: Admin: 06/11/25 06:06 Dose: Not Given Documented By: JOSE E Admin: 06/10/25 15:55 Dose: 2.5 mls/min Documented By: Admin: 06/10/25 03:09 Dose: 2.5 mls/min Documented By: Admin: 06/09/25 16:35 Dose: 2.5 mls/min Documented By: Admin: 06/09/25 04:25 Dose: 2.5 mls/min Documented By: Admin: 06/08/25 16:29 Dose: 2.5 mls/min Documented By: AUGUSTINA Promethazine HCl (Phenergan) 6.25 mg in 50.25 mls @ 201 mls/hr IV Q6H PRN PRN Reason: Nausea And Vomiting Stop: 07/09/25 19:40 Last Infusion: 06/09/25 20:17 Dose: Infused Documented By: Admin: 06/09/25 20:02 Dose: 201 mls/hr Documented By: DWIGHT Cefepime HCl (Maxipime 2000mg) 2,000 mg in 20 mls @ 5 mls/min IV Q12H EMILE Stop: 06/18/25 03:59 Last Admin: 06/11/25 06:06 Dose: Not Given Documented By: JOSE E Admin: 06/10/25 16:00 Dose: 5 mls/min Documented By: ANTHONY Famotidine (Pepcid 20mg Iv Push) 20 mg in 5 mls @ 2.5 mls/min IV NOW STA Stop: 06/11/25 19:02 Last Admin: 06/11/25 20:14 Dose: 2.5 mls/min Documented By: ROBBIN Lactated Ringer's (Lr) 500 mls @ 125 mls/hr IV .Q4H EMILE Stop: 06/12/25 18:44 Last Infusion: 06/12/25 21:26 Dose: Infused Documented By: keo Infusion: 06/12/25 17:08 Dose: 125 mls/hr Documented By: Infusion: 06/12/25 16:31 Dose: 0 mls/hr Documented By: Admin: 06/12/25 16:21 Dose: 125 mls/hr Documented By: ELIEL Thiamine HCl 100 mg/ Syringe 10 mls @ 2 mls/min IV NOW STA Stop: 06/13/25 10:22 Last Admin: 06/13/25 10:35 Dose: 2 mls/min Documented By: ESTHER Lactated Ringer's (Lr) 1,000 mls @ 125 mls/hr IV .Q8H EMILE Stop: 06/13/25 23:44 Last Infusion: 06/14/25 01:14 Dose: Infused Documented By: Admin: 06/13/25 16:31 Dose: 125 mls/hr Documented By: EDWIN Ciprofloxacin (Cipro / D5w) 400 mg in 200 mls @ 100 mls/hr IV Q12H EMILE; Protocol Stop: 06/23/25 22:29 Last Infusion: 06/14/25 01:40 Dose: Infused Documented By: Admin: 06/13/25 23:41 Dose: 100 mls/hr Documented By: DWIGHT Lactated Ringer's (Lr) 1,000 mls @ 80 mls/hr IV .[id number] EMILE Stop: 06/14/25 12:44 Last Infusion: 06/14/25 11:17 Dose: Infused Documented By: Admin: 06/14/25 01:13 Dose: 80 mls/hr Documented By: DWIGHT Pantoprazole Sodium (Protonix) 40 mg in 10 mls @ 5 mls/min IV NOW ONE Stop: 06/14/25 09:41 Last Admin: 06/14/25 10:58 Dose: 5 mls/min Documented By: NENA Insulin Aspart (Insulin Aspart Per Unit Charge) 0 units SC ACHS EMILE Stop: 07/07/25 20:59 Last Admin: 06/14/25 11:49 Dose: Not Given Documented By: Admin: 06/14/25 08:02 Dose: Not Given Documented By: Admin: 06/13/25 23:12 Dose: Not Given Documented By: DWIGHT Co-signed By: santa Admin: 06/13/25 17:21 Dose: Not Given Documented By: Admin: 06/13/25 11:44 Dose: Not Given Documented By: Admin: 06/13/25 08:02 Dose: Not Given Documented By: Admin: 06/12/25 20:32 Dose: Not Given Documented By: keo Co-signed By: VIKASJ Admin: 06/12/25 17:06 Dose: Not Given Documented By: Admin: 06/12/25 12:11 Dose: Not Given Documented By: MRE Co-signed By: LMC Admin: 06/12/25 10:16 Dose: Not Given Documented By: MRE Co-signed By: LMC Admin: 06/11/25 20:05 Dose: Not Given Documented By: Admin: 06/11/25 16:50 Dose: Not Given Documented By: Admin: 06/11/25 11:41 Dose: Not Given Documented By: Admin: 06/11/25 07:46 Dose: Not Given Documented By: GMW Co-signed By: MRE Admin: 06/10/25 21:17 Dose: Not Given Documented By: JOSE E Admin: 06/10/25 17:17 Dose: Not Given Documented By: Admin: 06/10/25 12:14 Dose: Not Given Documented By: Admin: 06/10/25 08:28 Dose: Not Given Documented By: Admin: 06/09/25 22:21 Dose: Not Given Documented By: MLJadiel Co-signed By: EKF Admin: 06/09/25 17:23 Dose: Not Given Documented By: Admin: 06/09/25 12:25 Dose: Not Given Documented By: Admin: 06/09/25 08:30 Dose: Not Given Documented By: Admin: 06/08/25 21:47 Dose: Not Given Documented By: MLM Co-signed By: EFK Admin: 06/08/25 16:29 Dose: 1 units Documented By: EW Co-signed By: KL Admin: 06/08/25 12:08 Dose: Not Given Documented By: Admin: 06/08/25 07:58 Dose: Not Given Documented By: Admin: 06/07/25 22:56 Dose: 1 units Documented By: KW Co-signed By: FABIÁN Lidocaine HCl (Lidocaine 2% Jelly 5 Ml Tube) 5 ml EXT NOW ONE Stop: 06/07/25 16:18 Last Admin: 06/07/25 16:37 Dose: 5 ml Documented By: NRB Meclizine HCl (Meclizine 12.5 Mg Tab) 12.5 mg PO BID PRN PRN Reason: Vertigo Stop: 07/10/25 13:53 Last Admin: 06/11/25 12:14 Dose: 12.5 mg Documented By: Admin: 06/10/25 21:18 Dose: 12.5 mg Documented By: JOSE E Metoclopramide HCl (Metoclopramide Hcl Inj 5 Mg/Ml 2 Ml Vial) 5 mg IV ONE ONE Stop: 06/10/25 11:30 Last Admin: 06/10/25 13:18 Dose: 5 mg Documented By: AM Metoclopramide HCl (Metoclopramide Hcl 5 Mg Tablet) 5 mg PO ACHS [facility] Stop: 07/10/25 16:59 Last Admin: 06/12/25 10:48 Dose: Not Given Documented By: Admin: 06/11/25 20:11 Dose: 5 mg Documented By: SNBeatriz Admin: 06/11/25 17:00 Dose: 5 mg Documented By: Admin: 06/11/25 11:37 Dose: 5 mg Documented By: JULIO CÉSAR Co-signed By: GMSandra Admin: 06/11/25 07:33 Dose: 5 mg Documented By: JULIO CÉSAR Co-signed By: GMSandra Admin: 06/10/25 21:17 Dose: 5 mg Documented By: JOSE E Admin: 06/10/25 17:19 Dose: 5 mg Documented By: AM Metoprolol Tartrate (Metoprolol Tartrate 1 Mg/Ml Vial) 5 mg IV ONE ONE Stop: 06/14/25 11:01 Last Admin: 06/14/25 11:59 Dose: 5 mg Documented By: KEN Midodrine (Midodrine Hcl 2.5 Mg Tab) 2.5 mg PO TID@0800,1200,1700 [facility] Stop: 07/09/25 16:59 Last Admin: 06/14/25 10:34 Dose: Not Given Documented By: Admin: 06/13/25 18:03 Dose: 2.5 mg Documented By: Admin: 06/13/25 11:47 Dose: Not Given Documented By: Admin: 06/13/25 07:49 Dose: 2.5 mg Documented By: JULIO CÉSAR Co-signed By: [facility] Admin: 06/12/25 16:23 Dose: 2.5 mg Documented By: Admin: 06/12/25 13:01 Dose: 2.5 mg Documented By: Admin: 06/12/25 10:48 Dose: Not Given Documented By: Admin: 06/11/25 17:00 Dose: 2.5 mg Documented By: Admin: 06/11/25 11:37 Dose: 2.5 mg Documented By: APS Co-signed By: GMW Admin: 06/11/25 07:34 Dose: 2.5 mg Documented By: APS Co-signed By: GMW Admin: 06/10/25 17:20 Dose: 2.5 mg Documented By: Admin: 06/10/25 12:18 Dose: 2.5 mg Documented By: Admin: 06/10/25 08:33 Dose: 2.5 mg Documented By: Admin: 06/09/25 16:36 Dose: 2.5 mg Documented By: SETH Olanzapine (Olanzapine 10 Mg/2.1 Ml Sdv) 5 mg IM DAILY PRN PRN Reason: Agitation/Aggression Stop: 07/12/25 09:18 Last Admin: 06/12/25 10:16 Dose: 5 mg Documented By: ELIEL Olanzapine (Olanzapine 10 Mg/2.1 Ml Sdv) 5 mg IM NOW STA Stop: 06/12/25 23:20 Last Admin: 06/12/25 23:23 Dose: 5 mg Documented By: LISA Ondansetron HCl (Ondansetron Inj 2 Mg/Ml 2 Ml Vial) 4 mg IV Q6H PRN PRN Reason: Nausea Stop: 07/07/25 22:45 Last Admin: 06/10/25 01:37 Dose: 4 mg Documented By: MLJadiel Admin: 06/09/25 16:43 Dose: 4 mg Documented By: Admin: 06/09/25 07:03 Dose: 4 mg Documented By: Admin: 06/08/25 08:01 Dose: 4 mg Documented By: AUGUSTINA Ondansetron HCl (Ondansetron Inj 2 Mg/Ml 2 Ml Vial) 4 mg IV NOW STA Stop: 06/11/25 18:59 Last Admin: 06/11/25 20:15 Dose: Not Given Documented By: ROBBIN Quetiapine Fumarate (Quetiapine Fumarate 25 Mg Tablet) 25 mg PO HS PRN PRN Reason: Agitation Stop: 07/12/25 20:59 Last Admin: 06/12/25 20:28 Dose: 25 mg Documented By: keo Description This is a 21 electrode EEG with a single channel dedicated to limited EKG. The electrodes were placed in accordance with the International 10-20 system. This EEG is technically limited due to excessive patient motion throughout the study. The predominant rhythm consists of generalized low amplitude theta slowing. There is a symmetric frontal beta rhythm. Photic stimulation is unremarkable. Hyperventilation is not performed. At times, a posterior dominant rhythm of up to 10 Hz is observed. There is no focal slowing. There are no epileptiform abnormalities. Interpretation Abnormal awake/drowsy EEG with evidence of encephalopathy. No epileptiform abnormalities appreciated. [facility] EEG Procedure Codes Indication for Procedure (1) Altered mental status: (2) Seizure-like activity: Neurology Neurology: 97357 EEG include record awake & drowsy
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
--- NOTE | 2025-06-15 19:24 | Neurology Consultation ---
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 In speaking with the patient's spouse, he has been exhibiting some subacute changes in behavior and personality over the past month or so, as well as some parkinsonian symptoms including shuffling gait. His exquisite sensitivity to atypical neuroleptics could potentially suggest that he may have Lewy body dementia. I would expect his extrapyramidal symptoms to gradually resolve although he does have acute kidney injury which may affect drug clearance. He was given diphenhydramine. Could consider a trial of bromocriptine if necessary. However, dopamine agonists would have the potential to aggravate his delirium. Otherwise, may use lorazepam when necessary. 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 In any event, I do not think he is an appropriate shunt candidate, especially considering his advanced age and degree of cerebrovascular disease on MRI. His spouse is fairly certain that he has not been exhibiting urinary incontinence which probably makes NPH less likely as well. His family is not really interested in pursuing a diagnosis of NPH any further at this time. His candidacy for INFORMATION WRITER shunting could be reconsidered as an outpatient. Continue supportive medical care, try to limit utilization of lorazepam if possible. Would avoid further exposure to neuroleptic medications. Again, exquisite sensitivity to atypical neuroleptics can sometimes be seen in individuals with Lewy body dementia, which remains a possible diagnosis in this patient. Please call with any questions. History of Present Illness Reason for Consultation: Concern for hydrocephalus Requesting Physician: Benton Attending Physician: Satish Mason MD History of Present Illness The patient is an 89-year-old male who presented to the emergency department on June 07, 2025 with weakness and recurrent urinary tract infection. He became acutely agitated with hospital associated delirium and received olanzapine and quetiapine overnight on June 12. He then developed extrapyramidal symptoms characterized by involuntary movements and motor restlessness. He was subsequently treated with diphenhydramine. A CT of the head completed on June 13 revealed moderate generalized atrophy and chronic small vessel ischemic disease, no acute process. I independently reviewed the brain MRI completed June 14. No evidence of acute or subacute stroke. No chronic microhemorrhage. There is generalized atrophy with an element of hydrocephalus ex vacuo. There is a moderate degree of chronic small vessel ischemic disease throughout the cerebral white matter. The interpreting radiologist had indicated some concern for hydrocephalus and suggested a neurosurgical consultation. I did discuss these findings with the hospitalist service. The imaging is not suggestive of normal pressure hydrocephalus, but rather hydrocephalus ex vacuo due to generalized atrophy. Given his advanced age and clinical status, I did not think that a transfer to a tertiary center for a shunt was indicated. I did evaluate the patient with his family at bedside. He has received lorazepam and has been sonorous, but with some tendency for agitation when aroused. His spontaneous abnormal movements have improved modestly since their onset after receiving atypical neuroleptic medication. In speaking with his spouse, he has been exhibiting some changes in behavior and personality over the past few months, has had some tendency for agitation and even aggression at times. He on occasion will talk in his sleep and has exhibited some tremulousness and shuffling gait although has had some orthopedic issues recently. He has not had any urinary incontinence. Allergies Allergy/AdvReac Type Severity Reaction Status Date / Time olanzapine AdvReac Severe Extrapyramidal Verified 06/13/25 15:37 symptoms quetiapine AdvReac Intermediate Extrapyramidal Verified 06/14/25 09:37 symptoms Home Medications Medication Instructions Recorded Confirmed Type magnesium oxide 400 mg PO BID 07/14/21 06/07/25 History multivitamin 1 tab PO QAM 07/14/21 06/07/25 History pioglitazone 45 mg tablet 45 mg PO QAM 07/14/21 06/07/25 History atorvastatin 40 mg tablet 40 mg PO DAILY 12/02/22 06/07/25 History furosemide 20 mg tablet 20 mg PO DAILY 12/02/22 06/07/25 History semaglutide 7 mg tablet (Rybelsus) 7 mg PO DAILY 12/02/22 06/07/25 History dutasteride 0.5 mg capsule 0.5 mg PO DAILY #90 caps 08/29/24 06/07/25 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; impotence, 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 aspirin 81 mg tablet 81 mg PO DAILY 05/09/25 06/07/25 History clopidogrel 75 mg tablet (Plavix) 0 mg PO DAILY 05/09/25 06/07/25 History sulfamethoxazole 800 1 tab PO BID #30 tabs 06/06/25 06/07/25 Rx mg-trimethoprim 160 mg tablet (Bactrim DS) bupropion HCl 150 mg 24 hr tablet, 150 mg PO QAM 06/07/25 06/07/25 History extended release (Wellbutrin XL) bupropion HCl 300 mg 24 hr tablet, 300 mg PO QAM 06/07/25 06/07/25 History extended release (Wellbutrin XL) methenamine hippurate 1 gram tablet 0 g PO BID 06/07/25 06/07/25 History metoprolol succinate 50 mg 50 mg PO DAILY 06/07/25 06/07/25 History tablet,extended release 24 hr omeprazole 20 mg capsule,delayed 20 mg PO BID 06/07/25 06/07/25 History release Patient History Medical History Degenerative disc disease Arthritis Urinary retention BPH (benign prostatic hyperplasia) GERD (gastroesophageal reflux disease) Barretts esophagus Diabetes mellitus, type 2 NIDDM Hypertension Hyperlipidemia Surgical History History of herniorrhaphy x2 History of total knee replacement Left History of colonoscopy History of esophagogastroduodenoscopy (EGD) H/O partial thyroidectomy Benign lump removal History of tooth extraction History of cataract surgery R/L Hx of cholecystectomy Family History Father Cardiac disorder Brother Family history of diabetes mellitus Other No family history of adverse response to anesthesia Social History Smoking Status: Never smoker Second Hand Exposure: No; Do You Dip or Chew Tobacco: No; Hx Alcohol Use: No Hx Substance Use: No Preferred Language: Ukrainian Communication Ability: Effective Systems Eng Required: No Beliefs That Will Affect Care: Mormonism Mormonism Beliefs: MORMON marital status: Current Living Situation: Spouse current occupational status: retired Feels Safe at Home: Yes Assistive Devices: Glasses and Walker Review of Systems Review of Systems: Unobtainable due to cognitive status Exam (Neuro) Constitutional: well developed, well nourished, + behavioral limitations and + lethargic Eyes: normal visual guerra by confrontation, PERRL and EOM intact bilaterally; no nystagmus Neurologic: Attention: Other (Patient is somnolent, difficult to arouse, but mildly agitated); negative Span Intact Cranial Nerves: Normal III, IV, , V, VII, VIII, IX, X, XI and XII Motor Strength: Normal Lower Extremities and Normal Upper Extremities Motor Tone: Normal Lower Extremities and Normal Upper Extremities Rigidity: None Muscle Bulk/Involuntary Movements: Rest Tremor (Arm) Deep Tendon Reflexes: Rt Triceps: 2+, Lt Triceps: 2+, Rt Biceps: 2+, Lt Biceps: 2+, Rt Brachioradialis: 2+, Lt Brachioradialis: 2+, Rt Patellar: 2+, Lt Patellar: 2+, Rt Ankle: 1+ and Lt Ankle: 1+ Details: Patient is restless, in restraints Results & Data Vital Signs (Past 12 Hours) Vital Signs Temp Pulse Pulse Resp BP BP BP 06/15/25 15:23 36.6 C 62 22 143/75 H 06/15/25 15:15 101 H 06/15/25 09:56 79 139/84 06/15/25 09:41 86 149/86 H 06/15/25 09:25 86 149/86 H 06/15/25 08:26 06/15/25 08:21 86 179/124 H 06/15/25 08:00 93 H Pulse Ox O2 Del Method 06/15/25 15:23 92 Room Air 06/15/25 15:15 06/15/25 09:56 06/15/25 09:41 06/15/25 09:25 06/15/25 08:26 Room Air 06/15/25 08:21 97 Room Air 06/15/25 08:00 Laboratory Results WBC 9.13, hemoglobin 11.6, hematocrit 33.7, platelet count 192, sodium 140, potassium 4.0, BUN 29, creatinine 2.18, glucose 102, calcium 8.9, magnesium 2.1 Diagnostic Findings Electrocardiogram reveals atrial fibrillation, 91 bpm (patient is post Watchman procedure this past February. An EEG completed today revealed generalized slowing consistent with encephalopathy, no epileptiform abnormalities. 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
--- NOTE | 2025-06-15 22:21 | Electrocardiogram Report ---
Test Reason : Blood Pressure : */* mmHG Vent. Rate : 91 BPM Atrial Rate : * BPM P-R Int : * ms QRS Dur : 86 ms QT Int : 390 ms P-R-T Axes : * -3 28 degrees QTcB Int : 479 ms Atrial fibrillation Nonspecific T wave abnormality Prolonged QT Abnormal ECG When compared with ECG of 13-Jun-2025 09:49, No significant change was found Confirmed by Bart Cisneros ([id number]) on 06/15/2025 10:21:04 PM Referred By: Mike Christiansen Confirmed By: Bart Cisneros
[2025-06-16] MEDS ORDERED: TPN/PPN CONSULT PHARMACY PRN (02:03)
[2025-06-16 08:05] LABS: Anion Gap 10.0 (3-11); Blood Urea Nitrogen 24.0 mg/dl (6-23); Calcium 9.0 mg/dl (8.6-10.3); Carbon Dioxide 24.0 mmol/L (21-32); Chloride 105.0 mmol/L (98-107); Creatinine Clr Calc Pharmacy 40.0 ml/min; Glucose 124.0 mg/dl (70-99(Fasting)); Magnesium 1.7 mg/dl (1.7-2.4); Potassium 4.2 mmol/L (3.5-5.1); Sodium 139.0 mmol/L (136-145)
--- NOTE | 2025-06-16 08:08 | Hospitalist Progress Note ---
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 ED evaluation is concerning for evidence of ROGER and presence of UTI, with prior culture growing out Pseudomonas. Patient will be admitted for ROGER and UTI treatment. #Altered mental status | hospital-acquired delirium | Agitation | Polypharmacy Recurrent episodes of agitation/aggression while in the hospital Given waxing and waning of symptoms, suspect hospital-acquired delirium Suspect polypharmacy is contributing Reglan, quetiapine, and illicit pain have been discontinued due to concern for EPS symptoms Bupropion decreased from 300mg -> 150mg daily For hospital acquired delirium, recommend sleep-wake cycle, rehydration when possible, and supportive care Family presence appreciated Continue thiamine 100 mg IV QAM Not on EPS: Patient began exhibiting extrapyramidal symptoms on the morning of 06/13 (involuntary muscle jerks/spasms, motor restlessness, etc.); received olanzapine and Seroquel the night prior He still exhibits the ability to follow commands, but patient is largely nonverbal with garbled speech on 06/14 Patient received Benadryl 62.5 mg IV overnight on 06/13 Patient received Benadryl 50 mg IV overnight on 06/14 Avoid further chemical sedation where possible Non-violent physical restraints applied on the afternoon of 06/15 - mitts + soft limb wrist restraints bilaterally Ativan 0.5 mg IV q8h PRN for agitation Head CT on 06/13 revealed no acute findings Brain MRI without contrast did not reveal any acute stroke, but did reveal hydrocephalus (see below) EEG awake/drowsy without evidence of encephalopathy or epileptiform abnormalities appreciated Palliative care consult appreciated Patient's is planning to bring in hid advanced directive Follow-up family meeting schedule for Saturday 05/19 #Hydrocephalus Brain MRI conducted on the evening of 06/15 did not reveal any acute stroke, but did reveal hydrocephalus (see below) Report recommended a neurosurgical consult for ventriculostomy shunt placement Patient would not be a candidate for a large-volume LP at this time for several reasons: (1) He was previously on aspirin and last took it on the morning of 06/13 (2) He exhibits agitation and is not easily redirectable, thus would create concern during needle placement Reach out to [facility] neurosurgery on the morning of 06/15, who recommended further workup before transfer Unclear at this time if this is hydrocephalus ex vacuo vs. NPH Reached out to both neurology and radiology teams on 06/15 to review imaging While it is difficult to make this distinction on imaging, both parties were in favor of hydrocephalus ex vacuo over NPH given patient's advanced age and microvascular dementia Will family would be in favor of a DYE STAND LOADER shunt, it is also unclear at this time if patient would be a DYE STAND LOADER shunt candidate Neurology consult appreciated This may be more in the alignment with Lewy body dementia Avoid further exposure to neuroleptic medication/atypicals Try to limit utilization of lorazepam when possible Spouse does not believe he has been exhibiting urinary incontinence making NPH less likely Candidacy for DYE STAND LOADER shunt to be considered on an outpatient basis; family is not interested in pursuing diagnosis of NPH any further at this time #Dysphagia (improving) | T2DM Patient was n.p.o. for approximately 48 to 72 hours, before exhibiting drastic improvement on 06/16 Parenteral nutrition started on 06/16 Speech therapy consult appreciated Questionable if he will be able to except his p.o. intake/concern for aspiration However, did tolerate some applesauce Will plan for overlap of parenteral nutrition with a trial of pured diet on the evening of 06/16 Pharmacy glycemic consult appreciated Continue BSG checks q6h in the setting of poor PO intake Convert PO to IV meds where possible Metoprolol tartrate 5 mg IV q12h + additional doses for sustained HR >130bpm Protonix 40 mg IV BID Acetaminophen 1000 mg PRN Most recent A1C at 7.2% in 04/2025 H/o DMT2, at home regimen include pioglitazone and semaglutide (hold while inpatient) Dietitian consult appreciated #HFpEF Patient was recently admitted to [facility] "weeks ago" for such and was treated with Lasix and ultimately discharged. H/o CHF per . Echocardiogram on 06/08/2025 revealed LVEF at 60 to 65% Patient began developing bibasilar crackles and wheezing after receiving IV fluids while n.p.o. CXR on 06/16 revealed cardiomegaly with mild interstitial edema consistent with CHF Fluids have been discontinued Close monitoring of respiratory status Will plan to restart Lasix, as ROGER has resolved Daily weights Strict I&O monitoring #Orthostatic hypotension | Dizziness | N/V | suspected gastroparesis (on hold) N/V may be secondary to orthostasis vs vertigo ( reports hx) vs underlying gastroparesis/on semaglutide. On 06/09 he had episode w/ PT where he was ambulating, became pale/dizzy & got back to bed. Had an episode of emesis. Was unable to get BP at that time secondary to machine malfunction. Following event, started Midodrine 2.5mg TID Still experiencing nausea/vomiting on 06/11 Reglan discontinued (as above) Compazine 5 mg IV q6h PRN for nausea/vomiting Meclizine PRN BID for dizziness Continue PPI & Pepcid Could trial sucralfate if refractory to above measures Recommend OP gastroparesis studies upon discharge #Ambulatory dysfunction (on hold) PT/OT evaluations appreciated Recommending acute rehab upon discharge Fall precautions CM following Referrals out to [facility], [facility], and [facility]; awaiting responses Given patient require IM olanzapine on 06/12, suspect this will affect disc harge planning #UTI (resolved) While metabolic encephalopathy was initially within differential for patient's altered mental status, do not feel that his main contributor at this time CTAP: significant wall thickening of urinary bladder which may be due to decompression, chronic outlet obstruction, and/or cystitis UCx on 06/06 consistent with pansensitive pseudomonas Patient received cefepime 2000 mg IV x 4 days Continue ciprofloxacin IV x 7 days (to be completed on 06/17) Continue dutasteride Tylenol PRN for pain/fever #ROGER (resolved) Creatinine 2.42 on admission --> current 1.50 on 06/16 Likely secondary to obstruction/UTI on admission Daily Adan catheter management Baseline creatinine around ~1.6 Bladder scan PRN #Afib- EKG at admission Afib, rate controlled; Watchman completed in February 2025; On ASA, metoprolol Discussed with Dr. Mason and will defer DC aspirin while NPO #HLD- Atorvastatin #Psych- Bupropion #GERD- Omeprazole Dispo: Continued stay on PCU telemetry Multiple family discussions currently in progress regarding GOC VTE Prophylaxis: SCDs, Heparin BID Admission and Anticipated Discharge Date Admission Date: June 07, 2025 Subjective Mr. Rivero demonstrated substantial improvement on 06/16. While he was reportedly agitated this morning, he received an additional dose of Ativan 0.5 mg IV, and slept most of the morning. When he woke around 1300, he was calm, and exhibited the ability to talk (whereas before he was nonverbal). His speech is still somewhat garbled, but when asked how he feels he reports "I feel pretty good right now". He denies any pain. He is alert and oriented to name, , month of the year, and location. He is also able to tell the nurse that he "has to go to the bathroom". Patient does recognize his (Bartolome) who is present at bedside. Patient is still poor historian this time, and thus it is difficult to obtain full ROS; however: Patient denies chest pain, abdominal pain, or SOB. Review of Systems Review of Systems: See HPI above Physical Exam Physical Exam: General: No acute distress; at bedside; non-toxic appearing; frail- appearing; SpO2 92% on RA HEENT: normocephalic, atraumatic; PERRLA; patient does not follow commands when attempting to assess EOMs; unable to assess vision; hearing appears to be intact (hard of hearing) Neck: supple; no lymphadenopathy; trachea midline Skin: warm, dry without signs of tenting; no cyanosis; no rashes, bruising, lesions, or erythema noted CV: chest wall NTP; RRR; S1/S2 normal; no murmurs/rubs/gallops; pulses intact and symmetric at radial, DP, and PT Lungs: no acute respiratory distress; symmetrical chest wall expansion; however, patient exhibits expiratory wheezing, bibasilar crackles in the lower lung guerra bilaterally ABD: Soft, NTP; BS present; no rebound/guarding; no distention MSK: Patient exhibits a resting tremor in the hands bilaterally present; no edema noted in the LEs b/l, nonerythematous; 4/5 matrix repairer strength bilaterally Neuro: Patient is oriented to name, , month of the year, and location; flat mood/affect; garbled speech; he is able to respond to some questioning, but other times he does not respond; he follows all commands on exam (such as gripping fingers, wiggling toes, lifting legs off the bed); he reports sensation is intact symmetric in the upper and lower extremities bilaterally assessed via light touch Results & Data Results & Data Vital Signs (Past 12 Hours) Vital Signs Temp Pulse Pulse Pulse Resp BP BP 06/16/25 03:45 36.8 C 90 18 151/83 H 06/15/25 23:38 36.6 C 87 18 133/85 06/15/25 23:00 83 06/15/25 21:02 92 H 132/71 06/15/25 21:00 105 H 06/15/25 20:47 114 H 155/79 H BP Pulse Ox O2 Del Method 06/16/25 03:45 90 Room Air 06/15/25 23:38 92 Room Air 06/15/25 23:00 06/15/25 21:02 06/15/25 21:00 118/81 06/15/25 20:47 PG Care Time/CCT Total # of Minutes Spent Total Time Spent with Patient: Total time spent is greater than 50% in coordination of care (as documented) at patient's floor/unit and/or counseling patient: Coding [place] [address] SUB INP/OBS CARE 3/50MIN Patient Type Established Medical Decision Making High Complexity Diagnoses Urinary tract infection N39.0 Acute kidney injury N17.9 Pleural effusion J90 Type 2 diabetes mellitus E11.9 Ambulatory dysfunction R26.2 Altered mental status R41.82
[2025-06-16] MEDS ORDERED: DEXTROSE 10% 1,000 ML IV PRN (10:42)
--- NOTE | 2025-06-16 10:43 | Neurology Progress Note ---
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 Continues to exhibit a tendency for agitation, received lorazepam earlier this morning and is currently somnolent. Patient's recent brain MRI reveals age-related atrophy and hydrocephalus ex vacuo as well as chronic cerebrovascular disease. No acute process. He has been exhibiting subacute decline in gait over the past few months, shuffling type gait pattern, no urinary incontinence, has been exhibiting some changes in personality and behavior as well, tendency for agitation, aggression at times. No dream enactment. No hallucinations prior to this hospitalization. As described previously, his exquisite sensitivity to atypical neuroleptics could potentially suggest an underlying degenerative dementia such as Lewy body dementia. However, this potential diagnosis is c ertainly not proven. Further, his imaging is not highly suggestive of normal pressure hydrocephalus, but rather, hydrocephalus ex vacuo in the context of generalized atrophy due to age. I do not think he is an appropriate candidate for ENGINEERING TECHNICIAN PARKING shunting. This diagnosis could potentially be pursued when his encephalopathy clears. However, given his advanced age, ENGINEERING TECHNICIAN PARKING shunting would generally be avoided. Further, ENGINEERING TECHNICIAN PARKING shunting is typically done to address gait apraxia and urinary incontinence in individuals with NPH, rather than a subcortical dementia which may often occur later in this process. Continue supportive medical care. His renal function does appear to be improving. Limit use of sedatives such as lorazepam. Please call with any questions. Admission and Anticipated Discharge Date Admission Date: June 07, 2025 Subjective Follow-up, encephalopathy, hydrocephalus ex vacuo, adverse effect of neuroleptic Patient slept well overnight, became agitated earlier this morning, received lorazepam, sleeping soundly at the time of my assessment. Did become briefly agitated with attempts at arousing him. I had an extended discussion with patient's spouse at patient bedside this morning. Reviewed his recent medical history, history of hip fracture, requiring surgical pinning, Watchman procedure completed this past February, having difficulty with recurrent urinary tract infections, progressive decline in functioning, changes in personality and behavior, becoming short tempered, irritable, aggressive at times. No other significant cognitive problems reported. His gait has been declining, however, developing a short shuffling gait pattern. No urinary incontinence. No dream enactment according to his spouse. May have been experiencing some anosmia. Became significantly agitated during this hospitalization and received atypical neuroleptic medications resulting in a significant adverse reaction with extrapyramidal symptoms. EEG revealed encephalopathy, no epileptiform abnormalities. Brain MRI negative for acute process, but does reveal atrophy, hydrocephalus ex vacuo, and chronic cerebrovascular disease. 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
--- NOTE | 2025-06-16 14:19 | XRay Report ---
Single frontal portable view of the chest was obtained, at: ,Compared to prior study dated: 07/15/2021, 06/07/2025 There is mild cardiac enlargement. Mild interstitial edema. No discrete consolidation. No sizable effusion. Central airways are patent. Impression Cardiomegaly mild interstitial edema consistent with CHF Electronically signed by Rebecca Talley 06-16-2025 2:19 PM
[2025-06-16] MEDS: TPN/PPN CONSULT PHARMACY STA (15:33)
[2025-06-16] MEDS: CLINOLIPID 20% IV FAT EMULSION 250 ML IV SCH (15:44)
[2025-06-16] MEDS: [UNRECOGNIZED DRUG - OTHER] IV SCH (15:44)
[2025-06-16] MEDS: PERIPHERAL TPN IV SCH (15:44)
[2025-06-16] MEDS: CIPROFLOXACIN / D5W 400 MG/200 ML BAG IV SCH (15:51)
[2025-06-16] MEDS ORDERED: Nursing to Pharmacy Communication SCH (16:45)
[2025-06-16] MEDS ORDERED: PHARMACY GLYCEMIC MGMT CONSULT PRN (17:33)
[2025-06-16] MEDS: INSULIN ASPART PER UNIT CHARGE SC SCH (18:06)
[2025-06-17] MEDS: INSULIN ASPART PER UNIT CHARGE SC SCH (01:12)
[2025-06-17] MEDS: STOP CLINOLIPID SCH (03:53)
[2025-06-17 06:37] LABS: Alanine Aminotransferase 22.0 U/L (7-52); Alkaline Phosphatase 73.0 U/L (34-104); Anion Gap 7.0 (3-11); Bilirubin,Total 1.1 mg/dl (0.2-1.0); Blood Urea Nitrogen 29.0 mg/dl (6-23); Calcium 8.6 mg/dl (8.6-10.3); Carbon Dioxide 24.0 mmol/L (21-32); Chloride 104.0 mmol/L (98-107); Creatinine Clr Calc Pharmacy 42.9 ml/min; Glucose 192.0 mg/dl (70-99(Fasting)); Magnesium 1.7 mg/dl (1.7-2.4); Potassium 3.8 mmol/L (3.5-5.1); Sodium 135.0 mmol/L (136-145); Triglycerides 95.0 mg/dl (0-150)
[2025-06-17 08:49] LABS: Hematocrit (blood only) 34.8 % (42.0-52.0); Hemoglobin 11.7 g/dl (14.0-18.0); Mean Corpuscular Hemoglobin 31.3 pg (25.0-34.0); Mean Corpuscular Volume 93.0 fL (80.0-100.0); Platelet Count 192 K/uL (130-400); RDW Standard Deviation 49.6 fL (36.4-46.3); Red Blood Count 3.74 M/uL (4.70-6.10); White Blood Count 10.89 K/ul (4.8-10.8)
[2025-06-17] MEDS: FUROSEMIDE 20 MG TAB PO SCH (09:04)
--- NOTE | 2025-06-17 12:16 | Hospitalist Progress Note ---
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 ED evaluation is concerning for evidence of ROGER and presence of UTI, with prior culture growing out Pseudomonas. Patient was admitted for ROGER and UTI, but over the course of his hospital stay he developed hospital-acquired delirium. He then began to exhibit EPS after receiving antipsychotics following an aggressive episode. He has a continued hospital day due to altered mental status without return to baseline. #Hospital-acquired delirium | suspected Lewy body dementia | agitation | Polypharmacy Recurrent episodes of agitation/aggression while in the hospital Given waxing and waning of symptoms, suspect hospital-acquired delirium + polypharmacy are primary contributors Reglan, quetiapine, and olanzapine have been discontinued due to concern for EPS symptoms Bupropion decreased from 300mg -> 150mg daily For hospital acquired delirium: recommend sleep-wake cycle, rehydration when possible, and supportive care Family presence appreciated Avoid further chemical sedation where possible Non-violent physical restraints required on 06/15 - mitts + soft limb wrist restraints bilaterally (later removed) Ativan 0.5 mg IV q8h PRN for agitation Continue thiamine 100 mg IV QAM Head CT on 06/13 revealed no acute findings Brain MRI without contrast did not reveal any acute stroke, but did reveal hydrocephalus (see below) EEG awake/drowsy without evidence of encephalopathy or epileptiform abnormalities appreciated Palliative care consult appreciated Patient's is planning to bring in hid advanced directive Follow-up family meeting schedule for Saturday 05/19 #Hydrocephalus Brain MRI conducted on the evening of 06/15 did not reveal any acute stroke, but did reveal hydrocephalus (see below) Report recommended a neurosurgical consult for ventriculostomy shunt placement Patient would not be a candidate for a large-volume LP at this time for several reasons: (1) He was previously on aspirin and last took it on the morning of 06/13; would need 5 days off aspirin (2) He exhibits agitation and is not easily re-directable, thus would create concern during needle placement Reached out to [facility] neurosurgery on the morning of 06/15, who recommended further workup before transfer Unclear at this time if this is hydrocephalus ex vacuo vs. NPH Reached out to both neurology and radiology teams on 06/15 to review imaging While it is difficult to make this distinction on imaging, both parties were in favor of hydrocephalus ex vacuo over NPH given patient's advanced age and microvascular dementia Neurology consult appreciated This may be more in the alignment with Lewy body dementia Avoid further exposure to neuroleptic medication/atypicals Try to limit utilization of lorazepam when possible Spouse does not believe he has been exhibiting urinary incontinence making NPH less likely Candidacy for PROTECTION MANAGER shunt to be considered on an outpatient basis; family is not interested in pursuing diagnosis of NPH any further at this time #Dysphagia (improving) | T2DM Patient was n.p.o. and did not have any food for approximately 48 to 72 hours, before exhibiting drastic improvement on 06/16 Parenteral nutrition started on 06/16 Drop in sodium, potassium, and phosphorus on 06/17; ? concern for re-feeding syndrome Speech therapy consult appreciated Questionable if he will be able to accept his p.o. intake; concern for aspiration + regression Will plan for overlap of parenteral nutrition with a trial of pured diet on the evening of 06/16 and 06/17 GOAL to get patient off of PPN on 06/18 if tolerating PO intake Pharmacy glycemic consult appreciated Continue BSG checks q6h in the setting of poor PO intake Convert PO to IV meds where possible Metoprolol tartrate 5 mg IV q12h + additional doses for sustained HR >130bpm Protonix 40 mg IV BID Acetaminophen 1000 mg PRN Most recent A1C at 7.2% in 04/2025 H/o DMT2, at home regimen include pioglitazone and semaglutide (hold while inpatient) Dietitian consult appreciated #Hypophosphatemia Low phosphorus at 1.7 on 06/17 Sodium phosphorus 15 mmol IV x 1 Recheck a.m. phosphorus #HFpEF Patient was recently admitted to [facility] "weeks ago" for such and was treated with Lasix and ultimately discharged. H/o CHF per . Echocardiogram on 06/08/2025 revealed LVEF at 60 to 65% Patient began developing bibasilar crackles and wheezing after receiving IV fluids while n.p.o. CXR on 06/16 revealed cardiomegaly with mild interstitial edema consistent with CHF D/c fluids Lasix 20mg IV x 1 Initiate Lasix 10mg IV QAM Daily weights Strict I&O monitoring Close monitoring of respiratory status #Extrapyramidal symptoms (improving) Patient began exhibiting extrapyramidal symptoms on the morning of 06/13 (involuntary muscle jerks/spasms, motor restlessness, etc.); received olanzapine and Seroquel the night prior Patient received Benadryl 62.5 mg IV on 06/13 Patient received Benadryl 50 mg IV on 06/14 Defer further IV Benadryl at this time #Orthostatic hypotension | Dizziness | N/V | suspected gastroparesis (on hold) N/V may be secondary to orthostasis vs vertigo ( reports hx) vs underlying gastroparesis/on semaglutide. On 06/09 he had episode w/ PT where he was ambulating, became pale/dizzy & got back to bed. Had an episode of emesis. Was unable to get BP at that time secondary to machine malfunction. Following event, started Midodrine 2.5mg TID Still experiencing nausea/vomiting on 06/11 Reglan discontinued (as above) Compazine 5 mg IV q6h PRN for nausea/vomiting Meclizine PRN BID for dizziness Continue PPI & Pepcid Could trial sucralfate if refractory to above measures Recommend OP gastroparesis studies upon discharge #Ambulatory dysfunction (on hold) PT/OT evaluations appreciated Recommending acute rehab upon discharge Fall precautions CM following Referrals out to [facility], [facility], and [facility]; awaiting responses Given patient require IM olanzapine on 06/12, suspect this will affect discharge planning #UTI (resolved) While metabolic encephalopathy was initially within differential for patient's altered mental status, do not feel that his main contributor at this time CTAP: significant wall thickening of urinary bladder which may be due to decompression, chronic outlet obstruction, and/or cystitis UCx on 06/06 consistent with pansensitive pseudomonas Patient received cefepime 2000 mg IV x 4 days Continue ciprofloxacin IV x 7 days (to be completed on 06/17) Continue dutasteride Tylenol PRN for pain/fever #ROGER (resolved) Creatinine 2.42 on admission --> 1.40 on 06/17 Likely secondary to obstruction/UTI on admission Daily Adan catheter management Baseline creatinine around ~1.6 Bladder scan PRN #Afib- EKG at admission Afib, rate controlled; Watchman completed in February 2025; On ASA, metoprolol IA aspirin 300mg x 1 Plan to transition to PO aspirin once swallowing improves #HLD- Atorvastatin #Psych- Bupropion #GERD- Omeprazole Dispo: Continued stay on PCU telemetry Multiple family discussions currently in progress regarding [facility] Prophylaxis: SCDs, Heparin BID Admission and Anticipated Discharge Date Admission Date: June 07, 2025 Subjective Mr. Rivero continues to exhibit improvements in his cognition. While he exhibits garbled speech, and does not respond to all questioning, he is able to converse at times. When asked how he is doing, he replies "good". He denies any pain, trouble breathing, or symptoms at this time. Touched base with nursing staff + speech therapy regarding swallowing. Patient reportedly did well with sipping on a protein shake today, and has been able to take small bites of applesauce and pudding. However, there are times when he does not swallow unless he is instructed to. For instance, nursing attempted to give his morning p.o. medications crushed up in pudding, but he spit them out, and did not swallow when instructed. Nursing staff reports that "1 minute he is able to swallow food/drinks, the next he is unable to swallow and is only able to spit things out". Family at bed at updated regarding progression. ROS difficult to obtain given patient's current mental status; however, patient denies any pain or trouble breathing at this time. Review of Systems Review of Systems: See HPI above Physical Exam Physical Exam: General: No acute distress; family at bedside; non-toxic appearing; frail- appearing; SpO2 93% on RA HEENT: normocephalic, atraumatic; PERRLA; patient does not follow commands when attempting to assess EOMs; unable to assess vision; hearing appears to be intact (hard of hearing) Neck: supple; no lymphadenopathy; trachea midline Skin: warm, dry without signs of tenting; no cyanosis; no rashes, bruising, lesions, or erythema noted CV: chest wall NTP; RRR; S1/S2 normal; no murmurs/rubs/gallops; pulses intact and symmetric at radial, DP, and PT Lungs: no acute respiratory distress; symmetrical chest wall expansion; diminished breath sounds bilaterally, but no adventitious breath sounds appreciated (improvement from the day prior) ABD: Soft, NTP; BS present; no rebound/guarding; no distention MSK: Patient exhibits a resting tremor in the hands bilaterally present; no edema noted in the LEs b/l, nonerythematous; 4/5 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 bilaterally Neuro: Patient is oriented to name, , month of the year, and location; flat mood/affect; garbled speech; he is able to respond to some questioning, but other times he does not respond; he follows all commands on exam (such as gripping fingers, wiggling toes, lifting legs off the bed); he reports sensation is intact symmetric in the upper and lower extremities bilaterally assessed via light touch Results & Data Results & Data Vital Signs (Past 12 Hours) Vital Signs Temp Pulse Pulse Resp BP Pulse Ox O2 Del Method 06/17/25 09:10 110 H 06/17/25 07:41 37.2 C 112 H 22 150/71 H 93 Room Air 06/17/25 07:00 36.6 C 108 H 22 152/88 H 92 Room Air 06/17/25 05:51 104 H 06/17/25 04:06 36.6 C 102 H 22 148/84 H 93 Room Air PG Care Time/CCT Total # of Minutes Spent Total Time Spent with Patient: Total time spent is greater than 50% in coordination of care (as documented) at patient's floor/unit and/or counseling patient: Coding [place] [address] SUB INP/OBS CARE 3/50MIN Patient Type Established History Comprehensive Exam Comprehensive Medical Decision Making High Complexity Diagnoses Urinary tract infection N39.0 Acute kidney injury N17.9 Pleural effusion J90 Type 2 diabetes mellitus E11.9 Ambulatory dysfunction R26.2 Altered mental status R41.82
--- NOTE | 2025-06-17 12:18 | Neurology Progress Note ---
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 His mental status does seem to be significantly improved this morning. He still exhibits some extrapyramidal movements. I would not recommend a trial of a dopamine agonist such as bromocriptine at this time. His encephalopathy appears to be improving instep with improvement in his renal function. Would continue with supportive medical care, case discussed with hospitalist at bedside. 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 The NPH diagnosis could potentially be reconsidered as an outpatient. However, given his advanced age, I do not think he would be considered an appropriate ventriculoperitoneal shunt candidate. This patient may follow-up with either myself or an KENZIE in neurology clinic in 2 to 3 weeks after discharge. Please call with any questions. Admission and Anticipated Discharge Date Admission Date: June 07, 2025 Subjective Follow-up, encephalopathy, hydrocephalus ex vacuo, adverse effect of neuroleptic Patient evaluated with family at bedside. He is much more alert, sitting up in bed, improved attention, able to speak although exhibits some disfluency, no gross dysarthria, he is able to identify his spouse and other family members at bedside, although his speech is difficult to understand. He has some difficulty following commands and exhibits occasional involuntary movements of the upper limbs, probably residual extrapyramidal movements. Occasional sudden jerking movements and tremors. I reviewed patient's neurological evaluations with the family including his recent brain MRI that revealed hydrocephalus ex vacuo and cerebrovascular disease, and lack of seizure activity on his recent EEG. His renal function is improving as is his mental status. At this point, I expect continued gradual improvement although he is of course still at risk for hospital associated delirium. 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 The patient's family remains in agreement with not pursuing a diagnosis of NPH at this time. Of course, however, this diagnosis can be reconsidered and pursued in the outpatient setting. I discussed my previous thoughts on whether or not he may have Lewy body dementia given his sensitivity to neuroleptic exposure during this hospi talization. Other than some subacute changes in personality and behavior, he has not exhibited classic signs of this disorder such as visual hallucinations and a dramatic fluctuation in cognitive functioning. Nonetheless, this diagnosis may not be completely excluded and can be further evaluated and monitored in the outpatient environment. 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
[2025-06-17] MEDS: FUROSEMIDE INJ 20 MG/2 ML VIAL IV STA (12:52)
[2025-06-17] MEDS: SODIUM PHOSPHATE 15 MMOL in SODIUM CHLORIDE 0.9% 250 ML IV ONE (14:26)
[2025-06-17] MEDS: POTASSIUM CHLORIDE / WTR 10 MEQ/100 ML PLCT IV SCH (14:30)
[2025-06-17] MEDS: [UNRECOGNIZED DRUG - OTHER] IV SCH (15:28)
[2025-06-17] MEDS: CLINOLIPID 20% IV FAT EMULSION 250 ML IV SCH (15:28)
[2025-06-17] MEDS: PERIPHERAL TPN IV SCH (15:28)
--- NOTE | 2025-06-17 16:00 | Palliative Care Consultation ---
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 14.5 % [place] % (Auto) 10.3 % Eos % (Auto) 2.0 % Baso % (Auto) 0.8 % Neut # (Auto) 6.36 (1.40-6.50) K/uL Lymph # (Auto) 1.28 (1.20-3.40) K/uL [place] # (Auto) 0.91 H (0.11-0.59) K/uL Eos # (Auto) 0.18 (0.00-0.50) K/uL Baso # (Auto) 0.07 (0.00-0.20) K/uL Immature Gran # (Auto) 0.03 (0.01-0.20) K/uL Sodium 137 (136-145) mmol/L Potassium 4.5 (3.5-5.1) mmol/L Chloride 104 (98-107) mmol/L Carbon Dioxide 25 (21-32) mmol/L Anion Gap 8 (3-11) BUN 23 (6-23) mg/dl Creatinine 2.13 H (0.6-1.4) mg/dl Est Cr Clr Drug Dosing 28.2 ml/min eGFR 29.40 BUN/Creatinine Ratio 10.8 (10-20) Glucose 198 H (70-99(Fasting)) mg/dl POC Glucose 120 H 114 H (70-99) mg/dl Calcium 9.3 (8.6-10.3) mg/dl Phosphorus (2.5-4.9) mg/dl Magnesium (1.7-2.4) mg/dl Total Bilirubin (0.2-1.0) mg/dl AST (13-39) U/L ALT (7-52) U/L Alkaline Phosphatase (34-104) U/L Triglycerides (0-150) mg/dl Urine Color Urine Appearance (Clear) Urine pH (4.5-7.5) Ur Specific [place] (1.000-1.030) Urine Protein (Negative) Urine Glucose (UA) (Negative) Urine Ketones (Negative) Urine Blood (Negative) Urine Nitrite (Negative) Urine Bilirubin (Negative) Urine Urobilinogen (Negative) Ur Leukocyte Esterase (Negative) Urine WBC (Auto) (0-5) /hpf Urine RBC (Auto) (0-2) /hpf U Hyaline Cast (Auto) (0-2) /lpf U Epithel Cells (Auto) (0-2) /hpf Urine Bacteria (Auto) (None Seen) Urine Comment 06/11/25 06/11/25 06/11/25 Range/Units 20:03 16:38 11:13 WBC (4.8-10.8) K/ul RBC (4.70-6.10) M/uL Hgb (14.0-18.0) g/dl Hct (42.0-52.0) % MCV (80.0-100.0) fL MCH (25.0-34.0) pg MCHC (32.0-36.0) g/dL RDW Std Deviation (36.4-46.3) fL RDW Coeff of Evelio (11.5-14.5) % Plt Count (130-400) K/uL MPV (9.4-12.4) fL Immature Gran % (Auto) % Neut % (Auto) % Lymph % (Auto) % [place] % (Auto) % Eos % (Auto) % Baso % (Auto) % Neut # (Auto) (1.40-6.50) K/uL Lymph # (Auto) (1.20-3.40) K/uL [place] # (Auto) (0.11-0.59) K/uL Eos # (Auto) (0.00-0.50) K/uL Baso # (Auto) (0.00-0.20) K/uL Immature Gran # (Auto) (0.01-0.20) K/uL Sodium (136-145) mmol/L Potassium (3.5-5.1) mmol/L Chloride (98-107) mmol/L Carbon Dioxide (21-32) mmol/L Anion Gap (3-11) BUN (6-23) mg/dl Creatinine (0.6-1.4) mg/dl Est Cr Clr Drug Dosing ml/min eGFR BUN/Creatinine Ratio (10-20) Glucose (70-99(Fasting)) mg/dl POC Glucose 132 H 127 H 121 H (70-99) mg/dl Calcium (8.6-10.3) mg/dl Phosphorus (2.5-4.9) mg/dl Magnesium (1.7-2.4) mg/dl Total Bilirubin (0.2-1.0) mg/dl AST (13-39) U/L ALT (7-52) U/L Alkaline Phosphatase (34-104) U/L Triglycerides (0-150) mg/dl Urine Color Urine Appearance (Clear) Urine pH (4.5-7.5) Ur Specific [place] (1.000-1.030) Urine Protein (Negative) Urine Glucose (UA) (Negative) Urine Ketones (Negative) Urine Blood (Negative) Urine Nitrite (Negative) Urine Bilirubin (Negative) Urine Urobilinogen (Negative) Ur Leukocyte Esterase (Negative) Urine WBC (Auto) (0-5) /hpf Urine RBC (Auto) (0-2) /hpf U Hyaline Cast (Auto) (0-2) /lpf U Epithel Cells (Auto) (0-2) /hpf Urine Bacteria (Auto) (None Seen) Urine Comment 06/11/25 06/11/25 06/10/25 Range/Units 09:14 07:09 20:46 WBC 6.90 (4.8-10.8) K/ul RBC 3.66 L (4.70-6.10) M/uL Hgb 11.6 L (14.0-18.0) g/dl Hct 33.9 L (42.0-52.0) % MCV 92.6 (80.0-100.0) fL MCH 31.7 (25.0-34.0) pg MCHC 34.2 (32.0-36.0) g/dL RDW Std Deviation 49.5 H (36.4-46.3) fL RDW Coeff of Evelio 14.5 (11.5-14.5) % Plt Count 185 (130-400) K/uL MPV 9.5 (9.4-12.4) fL Immature Gran % (Auto) % Neut % (Auto) % Lymph % (Auto) % [place] % (Auto) % Eos % (Auto) % Baso % (Auto) % Neut # (Auto) (1.40-6.50) K/uL Lymph # (Auto) (1.20-3.40) K/uL [place] # (Auto) (0.11-0.59) K/uL Eos # (Auto) (0.00-0.50) K/uL Baso # (Auto) (0.00-0.20) K/uL Immature Gran # (Auto) (0.01-0.20) K/uL Sodium 136 (136-145) mmol/L Potassium 4.0 (3.5-5.1) mmol/L Chloride 105 (98-107) mmol/L Carbon Dioxide 26 (21-32) mmol/L Anion Gap 5 (3-11) BUN 19 (6-23) mg/dl Creatinine 1.91 H (0.6-1.4) mg/dl Est Cr Clr Drug Dosing 31.4 ml/min eGFR 33.51 BUN/Creatinine Ratio 9.9 L (10-20) Glucose 172 H (70-99(Fasting)) mg/dl POC Glucose 106 H 133 H (70-99) mg/dl Calcium 9.0 (8.6-10.3) mg/dl Phosphorus (2.5-4.9) mg/dl Magnesium (1.7-2.4) mg/dl Total Bilirubin (0.2-1.0) mg/dl AST (13-39) U/L ALT (7-52) U/L Alkaline Phosphatase (34-104) U/L Triglycerides (0-150) mg/dl Urine Color Urine Appearance (Clear) Urine pH (4.5-7.5) Ur Specific [place] (1.000-1.030) Urine Protein (Negative) Urine Glucose (UA) (Negative) Urine Ketones (Negative) Urine Blood (Negative) Urine Nitrite (Negative) Urine Bilirubin (Negative) Urine Urobilinogen (Negative) Ur Leukocyte Esterase (Negative) Urine WBC (Auto) (0-5) /hpf Urine RBC (Auto) (0-2) /hpf U Hyaline Cast (Auto) (0-2) /lpf U Epithel Cells (Auto) (0-2) /hpf Urine Bacteria (Auto) (None Seen) Urine Comment 06/10/25 Range/Units 16:26 WBC (4.8-10.8) K/ul RBC (4.70-6.10) M/uL Hgb (14.0-18.0) g/dl Hct (42.0-52.0) % MCV (80.0-100.0) fL MCH (25.0-34.0) pg MCHC (32.0-36.0) g/dL RDW Std Deviation (36.4-46.3) fL RDW Coeff of Evelio (11.5-14.5) % Plt Count (130-400) K/uL MPV (9.4-12.4) fL Immature Gran % (Auto) % Neut % (Auto) % Lymph % (Auto) % [place] % (Auto) % Eos % (Auto) % Baso % (Auto) % Neut # (Auto) (1.40-6.50) K/uL Lymph # (Auto) (1.20-3.40) K/uL [place] # (Auto) (0.11-0.59) K/uL Eos # (Auto) (0.00-0.50) K/uL Baso # (Auto) (0.00-0.20) K/uL Immature Gran # (Auto) (0.01-0.20) K/uL Sodium (136-145) mmol/L Potassium (3.5-5.1) mmol/L Chloride (98-107) mmol/L Carbon Dioxide (21-32) mmol/L Anion Gap (3-11) BUN (6-23) mg/dl Creatinine (0.6-1.4) mg/dl Est Cr Clr Drug Dosing ml/min eGFR BUN/Creatinine Ratio (10-20) Glucose (70-99(Fasting)) mg/dl POC Glucose 130 H (70-99) mg/dl Calcium (8.6-10.3) mg/dl Phosphorus (2.5-4.9) mg/dl Magnesium (1.7-2.4) mg/dl Total Bilirubin (0.2-1.0) mg/dl AST (13-39) U/L ALT (7-52) U/L Alkaline Phosphatase (34-104) U/L Triglycerides (0-150) mg/dl Urine Color Urine Appearance (Clear) Urine pH (4.5-7.5) Ur Specific [place] (1.000-1.030) Urine Protein (Negative) Urine Glucose (UA) (Negative) Urine Ketones (Negative) Urine Blood (Negative) Urine Nitrite (Negative) Urine Bilirubin (Negative) Urine Urobilinogen (Negative) Ur Leukocyte Esterase (Negative) Urine WBC (Auto) (0-5) /hpf Urine RBC (Auto) (0-2) /hpf U Hyaline Cast (Auto) (0-2) /lpf U Epithel Cells (Auto) (0-2) /hpf Urine Bacteria (Auto) (None Seen) Urine Comment Calcium 8.6 mg/dl (8.6-10.3) 06/17/25 05:35 Phosphorus 1.7 mg/dl (2.5-4.9) L D 06/17/25 05:35 Magnesium 1.7 mg/dl (1.7-2.4) 06/17/25 05:35 Diagnostic Findings Abdomen/Pelvis CT 06/07/25 00:00 EXAMINATION: CT of the abdomen and pelvis performed without contrast TECHNIQUE: Helical CT images from the lung bases through the symphysis pubis were obtained without contrast. Coronal and sagittal reformatted images were generated at a workstation for further assessment. Dose reduction techniques were achieved by using automatic exposure control and/or adjustment of mA and/or kV according to patient size and/or use of iterative reconstruction technique. COMPARISON: None HISTORY: Abdominal pain FINDINGS: Lower chest: Trace pleural effusions. Diffuse fibrosis throughout the visualized mid and lower lungs, suggesting interstitial lung disease. There may also be some underlying interstitial pulmonary edema. Cardiomegaly. Watchman device. Liver: No suspicious liver lesions. Gallbladder: Cholecystectomy. Spleen: Normal size. Pancreas: No suspicious pancreatic lesions. The pancreatic duct is not dilated. Adrenal glands: No adrenal nodules. Kidneys: No hydronephrosis or obstructing renal stones. Bladder / Pelvic organs: Adan catheter in place decompressing the urinary bladder. The bladder wall appears thickened. Brachytherapy beads seen in the prostate gland, which is enlarged.. Bowel: No bowel obstruction. No abnormal bowel wall thickening. The appendix is unremarkable. Lymph nodes: No retroperitoneal, mesenteric, or pelvic lymphadenopathy. Peritoneum / Retroperitoneum: No free fluid or air within the abdomen. Vessels: No infrarenal aortic aneurysm. Moderate aortoiliac calcification. Bones and soft tissues: No suspicious lesion in the bones. Right fat-containing inguinal hernia. Fixation screws of the right femoral neck. IMPRESSION: Significant wall thickening of the urinary bladder, which may be due to decompression, chronic outlet obstruction, and/or cystitis, including infectious or radiation cystitis. There are brachytherapy beads in the prostate gland. Trace pleural effusions. Interstitial lung disease. There may also be underlying interstitial pulmonary edema. Electronically signed by Mike Rizvi 06-07-2025 6:39 PM Chest X-Ray 06/07/25 16:13 Chest radiograph, one view History: Shortness of breath Comparison: 07/15/2021 Findings: Single AP view of the chest performed. No focal consolidation or pleural effusion. No pneumothorax. The cardiomediastinal silhouette is within normal limits. Normal pulmonary vascularity. No evidence for lymphadenopathy. No visualized bony or soft tissue abnormality. Impression: Normal chest radiograph Electronically signed by Mike Rizvi 06-07-2025 4:33 PM KUB X-Ray 06/10/25 08:07 KUB CLINICAL HISTORY: Vomiting. Generalized abdominal pain. FINDINGS: 2 AP supine abdominal radiographs are correlated with abdominal CT dated 06/07/2025. Cholecystectomy clips are noted in the right upper quadrant. There are brachytherapy implants in the prostate gland. There is a nonobstructed abdominal bowel gas pattern. Mild fecal retention is noted throughout the colon. No evidence of intraperitoneal free air is seen on these supine images. There are no abnormal abdominal calcifications. Phleboliths are seen in the pelvis. The skeletal structures are osteopenic. There is moderate to advanced lumbosacral spondylosis. Chronic deformity and postsurgical change is noted in the right proximal femur. IMPRESSION: No acute abnormality is identified. Electronically signed by: Heath Del Angel M.D. 06/10/2025 10:[address] 06/13/25 09:16 CT SCAN OF THE BRAIN WITHOUT IV CONTRAST CLINICAL HISTORY: Altered mental status. COMPARISON STUDY: None. TECHNIQUE: Unenhanced axial CT scan of the brain was performed from the vertex to the skull base. A dose lowering technique was utilized adhering to the principles of ALARA. CT DOSE: 2897.09 mGy.cm FINDINGS: This exam is mildly compromised by motion artifact. No acute intracranial hemorrhage, midline shift or mass effect is present. Dilatation of the lateral and third ventricles is likely due to atrophy. There is proportional to sulcal enlargement. Basal cisterns are patent. There are no extra-axial collections. White matter hypodensity suggests small vessel disease. There are no findings to suggest acute dural sinus thrombosis or acute territorial infarct. No evidence for acute sinusitis. No mastoid effusion. IMPRESSION: 1. No acute intracranial findings. Mild motion artifact. 2. Moderate atrophy and mild small vessel disease. ACT 112: Negative or not required by law. Electronically signed by: Juan Arriaga M.D. 06/13/2025 10:34 AM Brain MRI 06/14/25 17:47 CR Exam(s): MRI HEAD EXAM: MR Head Without Intravenous Contrast CLINICAL HISTORY: Reason for exam: ?Lfacial droop, prolonged AMS, tremors. TECHNIQUE: Magnetic resonance images of the head/brain without intravenous contrast in multiple planes. COMPARISON: Prior head CT from June 13, 2025. FINDINGS: Brain: There is increased T2/FLAIR signal at the margins of concerning for transependymal CSF flow. No mass. No hemorrhage. No acute infarct. Ventricles: Moderate ventriculomegaly. Bones/joints: Unremarkable. No acute fracture. Sinuses: Unremarkable as visualized. No acute sinusitis. Mastoid air cells: Unremarkable as visualized. No mastoid effusion. Orbits: Bilateral lens replacements. Proliferation of the intraorbital fat. IMPRESSION: Findings concerning for hydrocephalus. Recommend neurosurgical consult for ventriculostomy shunt placement. Communications: Verify Receipt Electronically signed by: Arely Ulrich MD 06/14/25 21:31 PM Chest X-Ray 06/16/25 13:46 Single frontal portable view of the chest was obtained, at: ,Compared to prior study dated: 07/15/2021, 06/07/2025 There is mild cardiac enlargement. Mild interstitial edema. No discrete consolidation. No sizable effusion. Central airways are patent. Impression Cardiomegaly mild interstitial edema consistent with CHF Electronically signed by Rebecca Talley 06-16-2025 2:19 PM PG Care Time/CCT Total # of Minutes Spent Total Time Spent with Patient: Total time spent is greater than 50% in coordination of care (as documented) at patient's floor/unit and/or counseling patient: I spent minutes overall addressing this case: 15 min in medical data review/discussion with referring provider(s) and/or preparation for the visit 25 min in direct interaction with the patient/exam 60 min in Advance Care Planning/Goals of Care discussions as detailed above in note (must be >16min) 15 min in subsequent review and synthesis of assessment and plan 20 min communicating with other providers regarding the patient's case: primary, nursing, care mtg, neuro Advanced Care Planning 72035 Advanced Care Planning 30 Min 61189 Advanced Care Planning Additional 30 [place] [address] IN/OBS CONSULT LVL 5,80M (25 - SIGNIFICANT, SEPARATELY IDENTIFIABLE ) Patient Type New Medical Decision Making High Complexity Diagnoses Constipation K59.00 Weakness generalized R53.1 Advanced care planning/counseling discussion Z71.89 Altered mental status R41.82 Agitation R45.1 Lethargy R53.83 Palliative care by specialist Z51.5 Additional Codes Advanced Care Planning - 41589 Advanced Care Planning 30 Min: 75244 Advanced Care Planning 30 Min ([id number]) Advanced Care Planning - 89816 Advanced Care Planning Additional 30 Min: 94881 Advanced Care Planning Additional 30 Min ([id number]) Comment [id number], [id number]
--- NOTE | 2025-06-17 16:25 | Pharmacy Report ---
Pharmacy Initial PN Consult Nt - Date of Service June 17, 2025 - Scope Pharmacy has been consulted on this date to manage parenteral nutrition orders and order appropriate labs. As part of the Nutrition Support Team Guidelines, pharmacy will work in conjunction with dietary when determining the patients caloric needs. - Subjective * The patient is a 89 year old Male admitted on 06/07/25 for UTI, ROGER. * Patient is to receive parenteral nutrition for poor oral intake/NPO, dys phagia, alternative to feeding tube. Patient has hospital delirium with concerns for pulling out lines/tubes. - Objective Vascular Access: * Patient currently has a peripheral line. * Peripheral line was confirmed by IV Team to be acceptable for PPN use on this date. Height & Weight (Last Documented) Height 5 ft 11 in Weight 90.9 kg Diet Order(s) 06/16/25 Lunch Diet Intake & Ouput (24hrs) 06/16/25 06/17/25 06/18/25 06:59 06:59 06:59 Intake Total 2200 / 2200 2436.667 / 2436.667 2210.792 / 2210.792 Output Total 1650 / 1650 1553 / 1553 400 / 400 Balance 550 / 550 883.667 / 715.805 5590.792 / 1810.792 Selected Laboratory Results 06/17/25 05:35 Sodium 135 L Potassium 3.8 Chloride 104 Carbon Dioxide 24 Anion Gap 7 BUN 29 H Creatinine 1.40 BUN/Creatinine Ratio 20.7 H Glucose 192 H Calcium 8.6 Phosphorus 1.7 L D Magnesium 1.7 Total Bilirubin 1.1 H AST 31 ALT 22 Alkaline Phosphatase [address] - Follow Up Nutrition Assessment Start: 06/12/25 15:58 Freq: Status: Active Protocol: Document 06/17/25 13:27 ALR (Rec: 06/17/25 13:41 ALR [id number]) RD - Initial Nutrition Assessment Start: 06/12/25 15:46 Freq: Status: Active Protocol: Document 06/12/25 15:46 WN (Rec: 06/12/25 15:58 WN [id number]) - Assessment & Plan Assessment: * Appreciate dietitians recommendations for macronutrients. * 06/16 - day 1 of PPN. 85 grams AA, 100g AA, 50g lipids in ~2000 mL. This is max amount patient is able to receive via peripheral line. * 06/17 - day 2 of PPN. Slightly decrease macronutrients to 66 grams AA, 78 grams dextrose, 50 grams lipids due to significant downtrend in electrolytes since starting PPN. Ordered one time dose of NaPhos 15 mmol IV and KCL 20 meq IV to be given in addition to PPN for electrolyte replacement. Patient demographics (BMI, baseline stable electrolytes, administration of thiamine prior to PN, etc) do not put him a mod-high risk of re-feeding, however will proceed cautiously. * Patients mental status/ability to take PO continues to wax and wane. Hospitalist service to again discuss potential placement of feeding tube with family on 06/18. They were previously against this. Plan: * For Day #2 of PPN administration, the following will be ordered: * Macronutrients: * Amino Acids: 66 grams/day * Dextrose: 78 grams/day * Lipids: 50 grams/day * Micronutrients: * TPN electrolytes: 20 mL/day - Contains 35 mEq Na, 20 mEq K, 4.5 mEq Ca, 5 mEq Mg, 35 mEq Cl, 29.5 mEq Acetate per 20 mL * Sodium phosphate: 21 mMol/day * Sodium chloride: 80 mEq/day * Sodium acetate: 20 mEq/day * Potassium acetate: 20 mEq/day * Magnesium sulfate: 8.12 mEq/day * Calcium gluconate: mEq/day * Multivitamins: 10 mL/day * Trace elements: 1 mL/day * Total volume of 1652 mL will be infused over 24 hours and will provide 1030 kcal/day * Patient is on PPN which has a maximum mOsm/L of 900. Final osmolarity of current solution is [] mOsm/L. * Labs will be ordered per PN protocol. * Pharmacy will follow and adjust PN orders on a daily basis. Thank you!
[2025-06-17] MEDS: ASPIRIN 300 MG SUPP PR ONE (19:19)
--- NOTE | 2025-06-17 20:26 | Pharmacy Report ---
Pharmacy Glycemic Short Note 2 - Date of Service June 17, 2025 - Glycemic Short BSG Results (Last 24 hours): 06/16/25 06/17/25 06/17/25 20:50 00:10 05:35 Glucose 192 H POC Glucose 125 H 153 H 06/17/25 06/17/25 06/17/25 08:15 12:55 16:54 Glucose POC Glucose 204 H 134 H 158 H OUTPATIENT ANTIDIABETIC REGIMEN: * Pioglitazone * Semaglutide A1c = 7.2% ASSESSMENT: * 89 yo male with PMH of CKD, T2DM, BPH, and chronic UTIs presenting with vomiting, ROGER and UTI. Patient developed hospital-acquired delirium during his stay and remains admitted due to continued altered mental status and poor oral intake/dysphagia. * Home anti-diabetic medications were held on admission. Patient was ordered Novolog per CF/CR. He required no insulin 06/09 - 06/15. Pharmacy was consulted on 06/16 PM after PPN was initiated. Fasting BSG elevated this AM, however, immediate improvement with low dose Novolog. Continue bolus insulin only at this time. Would like to see additional fasting BSG data while on PPN prior to starting basal insulin. PLAN FOR INPATIENT GLYCEMIC CONTROL: * Hold outpatient oral diabetes medications * Basal insulin * Hold - may need to initiate if PPN is continued * Bolus insulin * NovoLog per scale ACHS or Q6hrs while NPO * Goal Range: Low 110 mg/dL - High 140 mg/dL * Correction Factor: 25 mg/dL/unit * Nutritional / Prandial insulin per carb ratio of 1 unit per 12 grams CHO consumed
[2025-06-18 06:35] LABS: Blood Urea Nitrogen 33 mg/dl (6-23); Calcium 8.9 mg/dl (8.6-10.3); Carbon Dioxide 25 mmol/L (21-32); Chloride 104 mmol/L (98-107); Creatinine Clr Calc Pharmacy 37.0 ml/min; Glucose 195 mg/dl (70-99(Fasting))
[2025-06-18 06:39] LABS: Hematocrit (blood only) 35.5 % (42.0-52.0); Hemoglobin 12.8 g/dl (14.0-18.0); Immature Granulocytes # (auto) 0.07 K/uL (0.01-0.20); Immature Granulocytes % (auto) 0.6 %; Mean Corpuscular Hemoglobin 32.7 pg (25.0-34.0); Mean Corpuscular Volume 90.8 fL (80.0-100.0); Platelet Count 184 K/uL (130-400); RDW Standard Deviation 47.8 fL (36.4-46.3); Red Blood Count 3.91 M/uL (4.70-6.10); White Blood Count 11.87 K/ul (4.8-10.8)
[2025-06-18] MEDS: FUROSEMIDE INJ 20 MG/2 ML VIAL IV SCH (07:45)
[2025-06-18 08:01] LABS: Magnesium 1.9 mg/dl (1.7-2.4); Potassium 4.2 mmol/L (3.5-5.1); Sodium 134.0 mmol/L (136-145)
[2025-06-18] MEDS: SODIUM PHOSPHATE 15 MMOL in SODIUM CHLORIDE 0.9% 250 ML IV ONE (13:38)
[2025-06-18] MEDS: PERIPHERAL TPN IV SCH (16:50)
[2025-06-18] MEDS: [UNRECOGNIZED DRUG - OTHER] IV SCH (16:50)
[2025-06-18] MEDS: CLINOLIPID 20% IV FAT EMULSION 250 ML IV SCH (16:50)
[2025-06-18] MEDS: HYDROmorphone INJ 0.5 MG/0.5 ML SYR IV STA (16:51)
--- NOTE | 2025-06-18 17:54 | Hospitalist Progress Note ---
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 ED evaluation is concerning for evidence of ROGER and presence of UTI, with prior culture growing out Pseudomonas. Patient was admitted for ROGER and UTI, but over the course of his hospital stay he developed hospital-acquired delirium. He then began to exhibit EPS after receiving antipsychotics following an aggressive episode. He has a continued hospital day due to altered mental status without return to baseline. #Hospital-acquired delirium | suspected Lewy body dementia | agitation | Polypharmacy Recurrent episodes of agitation/aggression while in the hospital Given waxing and waning of symptoms, suspect hospital-acquired delirium + polypharmacy are primary contributors Reglan, quetiapine, and olanzapine have been discontinued due to concern for EPS symptoms Bupropion decreased from 300mg -> 150mg daily -> discontinued (pt not taking it at all) For hospital acquired delirium: recommend sleep-wake cycle, rehydration when possible, and supportive care Family presence appreciated Avoid further chemical sedation where possible Non-violent physical restraints required on 06/15 - mitts + soft limb wrist restraints bilaterally (later removed) Ativan 0.5 mg IV q8h PRN for agitation Continue thiamine 100 mg IV QAM Head CT on 06/13 revealed no acute findings Brain MRI without contrast did not reveal any acute stroke, but did reveal hydrocephalus (see below) EEG awake/drowsy without evidence of encephalopathy or epileptiform abnormalities appreciated Palliative care consult appreciated Patient's is planning to bring in hid advanced directive Follow-up family meeting schedule for Tuesday 06/19 #Hydrocephalus Brain MRI conducted on the evening of 06/15 did not reveal any acute stroke, but did reveal hydrocephalus (see below) Report recommended a neurosurgical consult for ventriculostomy shunt placement Patient would not be a candidate for a large-volume LP at this time for several reasons: (1) He was previously on aspirin and last took it on the morning of 06/13; would need 5 days off aspirin (2) He exhibits agitation and is not easily re-directable, thus would create concern during needle placement Reached out to [facility] neurosurgery on the morning of 06/15, who recommended further workup before transfer Unclear at this time if this is hydrocephalus ex vacuo vs. NPH Reached out to both neurology and radiology teams on 06/15 to review imaging While it is difficult to make this distinction on imaging, both parties were in favor of hydrocephalus ex vacuo over NPH given patient's advanced age and microvascular dementia Neurology consult appreciated This may be more in the alignment with Lewy body dementia Avoid further exposure to neuroleptic medication/atypicals Try to limit utilization of lorazepam when possible Spouse does not believe he has been exhibiting urinary incontinence making NPH less likely Candidacy for WHOLESALE ACCOUNT MANAGER shunt to be considered on an outpatient basis; family is not interested in pursuing diagnosis of NPH any further at this time #Dysphagia (improving) | T2DM Patient was n.p.o. and did not have any food for approximately 48 to 72 hours, before exhibiting drastic improvement on 06/16 Parenteral nutrition started on 06/16 Drop in sodium, potassium, and phosphorus on 06/17; ? concern for re-feeding syndrome Speech therapy consult appreciated Questionable if he will be able to accept his p.o. intake; concern for aspiration + regression Will plan for overlap of parenteral nutrition with a trial of pured diet on the evening of 06/16 and 06/17 GOAL to get patient off of PPN on 06/18 if tolerating PO intake Pharmacy glycemic consult appreciated Continue BSG checks q6h in the setting of poor PO intake Convert PO to IV meds where possible Metoprolol tartrate 5 mg IV q12h + additional doses for sustained HR >130bpm Protonix 40 mg IV BID Acetaminophen 1000 mg PRN Most recent A1C at 7.2% in 04/2025 H/o DMT2, at home regimen include pioglitazone and semaglutide (hold while inpatient) Dietitian consult appreciated #Hypophosphatemia Low phosphorus at 1.7 on 06/17 Sodium phosphorus 15 mmol IV x 1 Recheck a.m. phosphorus #HFpEF Patient was recently admitted to [facility] "weeks ago" for such and was treated with Lasix and ultimately discharged. H/o CHF per . Echocardiogram on 06/08/2025 revealed LVEF at 60 to 65% Patient began developing bibasilar crackles and wheezing after receiving IV fluids while n.p.o. CXR on 06/16 revealed cardiomegaly with mild interstitial edema consistent with CHF D/c fluids Lasix 20mg IV x 1 Initiate Lasix 10mg IV QAM Daily weights Strict I&O monitoring Close monitoring of respiratory status #Extrapyramidal symptoms (improving) Patient began exhibiting extrapyramidal symptoms on the morning of 06/13 (involun tary muscle jerks/spasms, motor restlessness, etc.); received olanzapine and Seroquel the night prior Patient received Benadryl 62.5 mg IV on 06/13 Patient received Benadryl 50 mg IV on 06/14 Defer further IV Benadryl at this time #Orthostatic hypotension | Dizziness | N/V | suspected gastroparesis (on hold) N/V may be secondary to orthostasis vs vertigo ( reports hx) vs underlying gastroparesis/on semaglutide. On 06/09 he had episode w/ PT where he was ambulating, became pale/dizzy & got back to bed. Had an episode of emesis. Was unable to get BP at that time secon rusty to machine malfunction. Following event, started Midodrine 2.5mg TID Still experiencing nausea/vomiting on 06/11 Reglan discontinued (as above) Compazine 5 mg IV q6h PRN for nausea/vomiting Meclizine PRN BID for dizziness Continue PPI & Pepcid Could trial sucralfate if refractory to above measures Recommend OP gastroparesis studies upon discharge #Ambulatory dysfunction (on hold) PT/OT evaluations appreciated Recommending acute rehab upon discharge Fall precautions CM following Referrals out to [facility], [facility], and [facility]; awaiting responses Given patient require IM olanzapine on 06/12, suspect this will affect discharge planning #UTI (resolved) While metabolic encephalopathy was initially within differential for patient's altered mental status, do not feel that his main contributor at this time CTAP: significant wall thickening of urinary bladder which may be due to decompression, chronic outlet obstruction, and/or cystitis UCx on 06/06 consistent with pansensitive pseudomonas Patient received cefepime 2000 mg IV x 4 days Continue ciprofloxacin IV x 7 days (to be completed on 06/17) Continue dutasteride Tylenol PRN for pain/fever #ROGER (resolved) Creatinine 2.42 on admission --> 1.40 on 06/17 Likely secondary to obstruction/UTI on admission Daily Ortega catheter management Baseline creatinine around ~1.6 Bladder scan PRN #Afib- EKG at admission Afib, rate controlled; Watchman completed in February 2025; On ASA, metoprolol [place] aspirin 300mg x 1 Plan to transition to PO aspirin once swallowing improves #HLD- Atorvastatin #Psych- Bupropion #GERD- Omeprazole Dispo: Continued stay on PCU telemetry Multiple family discussions currently in progress regarding [facility] Prophylaxis: SCDs, Heparin BID Admission and Anticipated Discharge Date Admission Date: June 07, 2025 Subjective Pt remains agitated Spoke to pt's and son at length. 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 He is very independent. They have known each other for about 50 years now. She describes a wonderful marriage. She noted that earlier this year, he had a hip fracture. Since then he has become more dependent on her. She stated that he has had difficulty adapting to this change. He has had some personality changes during the recovery process. Now he has a UTI and this has led to increased delirium. It is suspected that some medications (quetiapine, olanzapine) may have worsened his agitation. He was also receiving lorazepam and we discussed how this can have the opposite effect. We discussed initiating Depakote and see if that may help him. They were informed that he may have some adverse event with it but we may not know until we try it. However, family did not want to try. Son asked about Haldol, but given suspected Lewy Body Dementia, Haldol would be contraindicated. We also discussed that PPN / TPN is not a long-term option and pt does not want feeding tube placed. is having very hard time making hard decisions about diet, nutrition, etc. We briefly reviewed his advanced directive and it states that he does not wish to have artificial nutrition in the event that he may not recover. She was reminded that he has made the decision and she is executing that decision. We also discussed that if Oscar from 5 years ago walked into the room and saw himself, what he would say? They were clear that he would not want to live like this. We discussed comfort focused treatment as an option if that's the route family would like pursue. Family stated that they would not be able to care for him at home and provide 24-hr care and they are open to placement if necessary. After family had considerable thought, they decided to see if IV pain medications could help and we trialed dilaudid and this did calm him down. He is having soft stool through out the day today He has a ortega. Now family is understanding about comfort care / hospice. We discussed meeting with palliative care tomorrow prior to making final decision. Review of Systems Review of Systems: unable to complete ROS due to mentation Physical Exam Physical Exam: Gen: very agitated this throughout the day, required 6 hospital staff and pt's to keep him calm for IV placement HEENT: NC/AT Lungs: nonlabored breathing, CTAB CVS: s1s2nl, RRR Abd: nl bowel sounds, soft, NT / ND : + ortega Ext: no edema Neuro: lethargic Psych: agitated Results & Data Results & Data Vital Signs (Past 12 Hours) Vital Signs Temp Pulse Pulse Resp BP BP BP 06/18/25 16:23 99 H 24 143/78 H 06/18/25 11:39 37.0 C 88 22 156/84 H 06/18/25 10:50 90 06/18/25 07:50 90 136/84 06/18/25 07:43 37.1 C 06/18/25 07:14 34.9 C L 90 21 136/84 Pulse Ox O2 Del Method 06/18/25 16:23 93 Room Air 06/18/25 11:39 99 Room Air 06/18/25 10:50 06/18/25 07:50 06/18/25 07:43 06/18/25 07:14 100 Room Air PG Care Time/CCT Total # of Minutes Spent Total Time Spent with Patient: Total time spent is greater than 50% in coordination of care (as documented) at patient's floor/unit and/or counseling patient: Coding Level of Care Code 85482 SUB INP/OBS CARE 3/50MIN Diagnoses Urinary tract infection N39.0 Acute kidney injury N17.9 Pleural effusion J90 Type 2 diabetes mellitus E11.9 Ambulatory dysfunction R26.2 Altered mental status R41.82
[2025-06-18] MEDS ORDERED: VALPROATE SOD 250 MG in DEXTROSE 5% 50 ML IV SCH (21:00)
[2025-06-18] MEDS: HYDROmorphone INJ 0.5 MG/0.5 ML SYR IV PRN (22:17)
[2025-06-18] MEDS: ACETAMINOPHEN 1,000 MG/100 ML VIAL IV STA (23:10)
[2025-06-19 03:41] LABS: Hematocrit (blood only) 33.1 % (42.0-52.0); Hemoglobin 11.6 g/dl (14.0-18.0); Immature Granulocytes # (auto) 0.07 K/uL (0.01-0.20); Immature Granulocytes % (auto) 0.6 %; Mean Corpuscular Hemoglobin 32.0 pg (25.0-34.0); Mean Corpuscular Volume 91.2 fL (80.0-100.0); Platelet Count 215 K/uL (130-400); RDW Standard Deviation 47.9 fL (36.4-46.3); Red Blood Count 3.63 M/uL (4.70-6.10); White Blood Count 11.59 K/ul (4.8-10.8)
[2025-06-19 03:58] LABS: Anion Gap 4.0 (3-11); Blood Urea Nitrogen 38.0 mg/dl (6-23); Calcium 8.5 mg/dl (8.6-10.3); Carbon Dioxide 23.0 mmol/L (21-32); Chloride 106.0 mmol/L (98-107); Creatinine Clr Calc Pharmacy 34.0 ml/min; Glucose 194.0 mg/dl (70-99(Fasting)); Magnesium 2.1 mg/dl (1.7-2.4); Potassium 4.5 mmol/L (3.5-5.1); Sodium 133.0 mmol/L (136-145)
[2025-06-19] MEDS ORDERED: Nursing to Pharmacy Communication SCH (08:15)
[2025-06-19] MEDS ORDERED: HALOPERIDOL ORAL SOLN 2 MG/ML PO PRN (11:38)
--- NOTE | 2025-06-19 11:55 | Palliative Care Progress Note ---
Date of Service June 19, 2025 Assessment & Plan (1) Agitation: Plan: Oscar has had ?paradoxical agitation with lorazepam, olanzapine, Seroquel. For managing agitation in context of comfort care focus, would like to initiate a trial of Haldol 2mg PO (solution) dripped into buccal mucosa. There is some evidence that looked at the effect of lorazepam with scheduled haloperidol vs scheduled haloperidol alone for agitated delirium at the end of life and found that the addition of lorazepam significantlyreduced agitationat 8 hours compared to haloperidol alone. Hyperactive patients who are a danger to themselves or others (pulling out lines or tubes, striking caregivers, etc) despite behavioral and environmental modification, should be treated pharmacologically. Notably, there is no evidence-based drug approach to this, and reasonable treatment options could include antipsychotics (especially if symptomatology includes hallucinations or delusions), or sedatives such as benzodiazepines or dexmedetomidine if prognosis is felt to be short. Patients with terminal delirium should be treated pharmacologically if it is the judgment of their caregivers that the delirium is a source of suffering. In these circumstances, it is important to consider the therapeutic goal in the context of the patients prognosis. If sedation is acceptable, or even the goal in a dying patient, a sedating dose of a benzodiazepine or a sedating antipsychotic such as chlorpromazine is probably a prudent approach even though such medications are known to cloud cognitive clarity. Recommend using quetiapine or aripiprazole for Lewy Body Dementia- starting doses are as follows: risperidone = 0.25 mg PRN; Quetiapine = 25 mg PRN; Aripiprazole = 2 mg PRN; Olanzapine = 2.5- 5 mg PRN; haloperidol = 1 mg PRN. (2) Dyspnea and respiratory abnormalities: (3) Advanced care planning/counseling discussion: Plan: I met with the Josefa family ( + 2 sons) at bedside face to face for 75min today. Extensive conversation re medical issues to date, TPN has not been helping, he has continued to wax/wane in mentation and no matter what meds have been tried he continues to have a paradoxical reaction to agitation mgt meds. He was given some Dilaudid IV over the weekend with some relief. brought in his AD and reviewed with primary team. She knows he would not want any aggressive or invasive measures to prolong life. and sons agree he would not want to live like this, all state "This si not living to him, if he was here looking at this he'd be telling us to let him go." remains hopeful for a peaceful end of life, she is very dedicated to protecting his dignity. We are in agreement to transition to [facility]. No more TPN after the current bag is completed. They would like SNF with hospice added. They are aware SNF bed and board will be self pay and are not worried about the costs/they are able to pay out of pocket for his intermediate and want a high quality intermediate with no care giving issues. They want hospice added and have no agency preference. They would prefer [facility] in [place], [facility] [employer], or [facility] is another option, if available, for a private pay case. We discussed prognosis and symptom mgt. I think we are looking at a few weeks but certainly he may have potential to "improve" with QOL focused care, less poking/prodding etc. I also recommended trying low dose TDF 12mcg q72h and have written the order. They are aware IV meds are not given at nursing homes and so we will work to get him on a regimen that nursing homes can continue. I would stop non comfort/non essential meds but do complete the course of Abtx until dc if possible. (4) Weakness generalized: (5) Lethargy: (6) Palliative care by specialist: Plan As above [facility] Dispo planning for SNF with hospice, they are self pay for SNF/no concerns. Asking for [facility], [facility] Thank you for allowing us to participate in the ongoing care of this patient. Please page with any additional concerns. Girma Alfredo DNP Director, Palliative Medicine Admission and Anticipated Discharge Date Admission Date: June 07, 2025 Subjective eventful weekend - periods of agitation, restless, more alert Sat to Wednesday/watched the foot ball game a little on Wednesday Very agitated yesterday TPN has not helped much Had a BM over weekend Dilaudid IV started over weekend with some relief nothing lasting, his agitation returns quickly he is having a lot of paradoxical reactions to meds to relieve his agitation not taking much PO, had some ice cream Wednesday and sons x2 at bedside Review of Systems Review of Systems: Unobtainable due to cognitive status Physical Exam Constitutional: well developed, well nourished, + ill appearing, + altered mental status, + behavioral limitations, + in distress, + combative, + diaphoretic and + lethargic Eyes: PERRL ENMT: dentition intact, MM sl dry, no obvious thrush Neck: normal visual inspection Respiratory: + labored breathing (at times) and symme tric chest movement Cardiovascular: Rate/Rhythm: + tachycardic Gastrointestinal (Abdomen): Inspection/Auscultation: + abdomen distended and + hyperactive bowel sounds Percussion/Palpation: abdomen soft Musculoskeletal: agitated, kicking out, bilat wrists restrained Skin: + turgor decreased and + pallor Neurologic: lethargic and agitated in an alternating manner, restless, kicking out, punching at staff unable to follow commands Results & Data Vital Signs (Past 12 Hours) Vital Signs Temp Pulse Pulse Resp BP Pulse Ox O2 Del Method 06/19/25 08:30 36.5 C 85 24 135/90 94 Room Air 06/19/25 08:07 83 06/19/25 07:00 91 H 06/19/25 02:49 37.0 C 88 23 126/97 94 Nasal Cannula 06/19/25 00:28 37.9 C H O2 Flow Rate 06/19/25 08:30 06/19/25 08:07 06/19/25 07:00 06/19/25 02:49 2 06/19/25 00:28 PG Care Time/CCT Total # of Minutes Spent Total Time Spent with Patient: Total time spent is greater than 50% in coordination of care (as documented) at patient's floor/unit and/or counseling patient: I spent 130 minutes overall addressing this case: 10 min in medical data review/discussion with referring provider(s) and/or preparation for the visit 15 min in direct interaction with the patient/exam 75 min in Advance Care Planning/Goals of Care discussions as detailed above in note (must be >16min) 10 min in subsequent review and synthesis of assessment and plan 20 min communicating with other providers regarding the patient's case: primary team, nursing, care mgt, pharmacy, TELEPHONE 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 Advanced Care Planning 04674 Advanced Care Planning 30 Min 26813 Advanced Care Planning Additional 30 Min [place] [address] SUB INP/OBS CARE 3/50MIN (25 - SIGNIFICANT, SEPARATELY IDENTIFIABLE ) Patient Type Established Medical Decision Making High Complexity Diagnoses Agitation R45.1 Dyspnea and respiratory abnormalities R06.00; R06.89 Advanced care planning/counseling discussion Z71.89 Weakness generalized R53.1 Lethargy R53.83 Palliative care by specialist Z51.5 Additional Codes Advanced Care Planning - 90065 Advanced Care Planning 30 Min: 94876 Advanced Care Planning 30 Min ([id number]) Advanced Care Planning - 10805 Advanced Care Planning Additional 30 Min: 75267 Advanced Care Planning Additional 30 Min ([id number]) Comment [id number]
[2025-06-19] MEDS ORDERED: INSULIN ASPART PER UNIT CHARGE SC SCH (12:00)
--- NOTE | 2025-06-19 12:34 | Hospitalist Progress Note ---
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 ED evaluation is concerning for evidence of ROGER and presence of UTI, with prior culture growing out Pseudomonas. Patient was admitted for ROGER and UTI, but over the course of his hospital stay he developed hospital-acquired delirium. He then began to exhibit EPS after receiving antipsychotics following an aggressive episode. He has a continued hospital day due to altered mental status without return to baseline. 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 - family met with palliative care again on 06/19/25 and decision was made to transition to QUALITY ASSURANCE PROJECT MANAGER - all non-essential meds discontinued - no further parentral nutrition after completion of current PPN - CM on board for placement , family aware room / board is out of pocket cost - comfort meds ordered - currently awaiting placement See below for further details on current hospitalization #Hospital-acquired delirium | suspected Lewy body dementia | agitation | Polypharmacy Recurrent episodes of agitation/aggression while in the hospital Given waxing and waning of symptoms, suspect hospital-acquired delirium + polypharmacy are primary contributors Reglan, quetiapine, and olanzapine have been discontinued due to concern for EPS symptoms Bupropion decreased from 300mg -> 150mg daily -> discontinued (pt not taking it at all) For hospital acquired delirium: recommend sleep-wake cycle, rehydration when possible, and supportive care Family presence appreciated Avoid further chemical sedation where possible Non-violent physical restraints required on 06/15 - mitts + soft limb wrist restraints bilaterally (later removed) Ativan 0.5 mg IV q8h PRN for agitation Head CT on 06/13 revealed no acute findings Brain MRI without contrast did not reveal any acute stroke, but did reveal hydrocephalus (see below) EEG awake/drowsy without evidence of encephalopathy or epileptiform abnormalities appreciated Palliative care consult appreciated Patient's is planning to bring in hid advanced directive Follow-up family meeting schedule for Tuesday 06/19 #Hydrocephalus Brain MRI conducted on the evening of 06/15 did not reveal any acute stroke, but did reveal hydrocephalus (see below) Report recommended a neurosurgical consult for ventriculostomy shunt placement Patient would not be a candidate for a large-volume LP at this time for several reasons: (1) He was previously on aspirin and last took it on the morning of 06/13; would need 5 days off aspirin (2) He exhibits agitation and is not easily re-directable, thus would create concern during needle placement Reached out to [facility] neurosurgery on the morning of 06/15, who recommended further workup before transfer Unclear at this time if this is hydrocephalus ex vacuo vs. NPH Reached out to both neurology and radiology teams on 06/15 to review imaging While it is difficult to make this distinction on imaging, both parties were in favor of hydrocephalus ex vacuo over NPH given patient's advanced age and microvascular dementia Neurology consult appreciated This may be more in the alignment with Lewy body dementia Avoid further exposure to neuroleptic medication/atypicals Try to limit utilization of lorazepam when possible Spouse does not believe he has been exhibiting urinary incontinence making NPH less likely Candidacy for BALANCE STAFF STAKER shunt to be considered on an outpatient basis; family is not interested in pursuing diagnosis of NPH any further at this time #Dysphagia (improving) | T2DM Patient was n.p.o. and did not have any food for approximately 48 to 72 hours, before exhibiting drastic improvement on 06/16 Parenteral nutrition started on 06/16 Drop in sodium, potassium, and phosphorus on 06/17; ? concern for re-feeding syndrome Speech therapy consult appreciated Questionable if he will be able to accept his p.o. intake; concern for aspiration + regression Will plan for overlap of parenteral nutrition with a trial of pured diet on the evening of 06/16 and 06/17 GOAL to get patient off of PPN on 06/18 if tolerating PO intake Pharmacy glycemic consult appreciated Continue BSG checks q6h in the setting of poor PO intake Convert PO to IV meds where possible Metoprolol tartrate 5 mg IV q12h + additional doses for sustained HR >130bpm Protonix 40 mg IV BID Acetaminophen 1000 mg PRN Most recent A1C at 7.2% in 04/2025 H/o DMT2, at home regimen include pioglitazone and semaglutide (hold while inpatient) #Hypophosphatemia Low phosphorus at 1.7 on 06/17 Sodium phosphorus 15 mmol IV x 1 #HFpEF Patient was recently admitted to [facility] "weeks ago" for such and was treated with Lasix and ultimately discharged. H/o CHF per . Echocardiogram on 06/08/2025 revealed LVEF at 60 to 65% Patient began developing bibasilar crackles and wheezing after receiving IV fluids while n.p.o. CXR on 06/16 revealed cardiomegaly with mild interstitial edema consistent with CHF D/c fluids Daily weights Strict I&O monitoring Close monitoring of respiratory status #Extrapyramidal symptoms (improving) Patient began exhibiting extrapyramidal symptoms on the morning of 06/13 (involuntary muscle jerks/spasms, motor restlessness, etc.); received olanzapine and Seroquel the night prior Patient received Benadryl 62.5 mg IV on 06/13 Patient received Benadryl 50 mg IV on 06/14 #Orthostatic hypotension | Dizziness | N/V | suspected gastroparesis (on hold) N/V may be secondary to orthostasis vs vertigo ( reports hx) vs underlying gastroparesis/on semaglutide. On 06/09 he had episode w/ PT where he was ambulating, became pale/dizzy & got back to bed. Had an episode of emesis. Was unable to get BP at that time secondary to machine malfunction. Following event, started Midodrine 2.5mg TID Still experiencing nausea/vomiting on 06/11 Reglan discontinued (as above) Compazine 5 mg IV q6h PRN for nausea/vomiting #Ambulatory dysfunction (on hold) PT/OT evaluations appreciated Recommending acute rehab upon discharge Fall precautions CM following Referrals out to [facility], [facility], and [facility]; awaiting responses Given patient require IM olanzapine on 06/12, suspect this will affect discharge planning #UTI (resolved) While metabolic encephalopathy was initially within differential for patient's altered mental status, do not feel that his main contributor at this time CTAP: significant wall thickening of urinary bladder which may be due to decompression, chronic outlet obstruction, and/or cystitis UCx on 06/06 consistent with pansensitive pseudomonas Patient received cefepime 2000 mg IV x 4 days Continue ciprofloxacin IV x 7 days (to be completed on 06/17) Continue dutasteride Tylenol PRN for pain/fever #ROGER (resolved) Creatinine 2.42 on admission --> 1.40 on 06/17 Likely secondary to obstruction/UTI on admission Daily Ortega catheter management Baseline creatinine around ~1.6 Bladder scan PRN #Afib- EKG at admission Afib, rate controlled; Watchman completed in February 2025; On ASA, metoprolol [place] aspirin 300mg x 1 #HLD- Atorvastatin #Psych- Bupropion #GERD- Omeprazole Dispo: Continued stay on PCU telemetry VTE Prophylaxis: comfort care Admission and Anticipated Discharge Date Admission Date: June 07, 2025 Subjective Pt has some improvement with hydromorphone but nothing consistent Family met with palliative care today and decision was made to transition to QUALITY ASSURANCE PROJECT MANAGER Review of Systems Review of Systems: unable to complete ROS due to mentation Physical Exam Physical Exam: Gen: less agitated today but still restless HEENT: NC/AT, dry MM Lungs: nonlabored breathing, CTAB CVS: s1s2nl, RRR Abd: nl bowel sounds, soft, NT / ND : + ortega Ext: no edema Neuro: lethargic Psych: agitated Results & Data Results & Data Vital Signs (Past 12 Hours) Vital Signs Temp Pulse Pulse Resp BP Pulse Ox O2 Del Method 06/19/25 08:30 36.5 C 85 24 135/90 94 Room Air 06/19/25 08:07 83 06/19/25 07:00 91 H 06/19/25 02:49 37.0 C 88 23 126/97 94 Nasal Cannula 06/19/25 00:28 37.9 C H O2 Flow Rate 06/19/25 08:30 06/19/25 08:07 06/19/25 07:00 06/19/25 02:49 2 06/19/25 00:28 PG Care Time/CCT Total # of Minutes Spent Total Time Spent with Patient: Total time spent is greater than 50% in coordination of care (as documented) at patient's floor/unit and/or counseling patient: Coding Level of Care Code 69814 SUB INP/OBS CARE 2/35MIN Diagnoses Urinary tract infection N39.0 Acute kidney injury N17.9 Pleural effusion J90 Type 2 diabetes mellitus E11.9 Ambulatory dysfunction R26.2 Altered mental status R41.82
[2025-06-19] MEDS: HYDROmorphone INJ 1 MG/ML SYRINGE IV PRN (13:09)
[2025-06-19] MEDS: GLYCOPYRROLATE 0.2 MG/ML VIAL IV PRN (21:53)
[2025-06-19] MEDS: HALOPERIDOL LACTATE 5 MG/ML 1 ML VIAL IV PRN (22:48)
[2025-06-20 07:09] LABS: Anion Gap 8.0 (3-11); Blood Urea Nitrogen 54.0 mg/dl (6-23); Calcium 8.8 mg/dl (8.6-10.3); Carbon Dioxide 23.0 mmol/L (21-32); Chloride 105.0 mmol/L (98-107); Creatinine Clr Calc Pharmacy 27.6 ml/min; Glucose 190.0 mg/dl (70-99(Fasting)); Potassium 4.9 mmol/L (3.5-5.1); Sodium 136.0 mmol/L (136-145)
--- NOTE | 2025-06-20 09:31 | Palliative Care Progress Note ---
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 Asking for [facility] Thank you for allowing us to participate in the ongoing care of this patient. Please page with any additional concerns. Girma Alfredo DNP Director, Palliative Medicine Admission and Anticipated Discharge Date Admission Date: June 07, 2025 Subjective Dakota remains on SUPPRESSION CREW LEADER no signif change perhaps a little calmer appearing this morning though periodic agitation is intermittently noted not interactive eyes open to verbal but no clear comprehension/cannot follow commands No family present at time of my visit Care mgt advised Katya can take him - dispo in progress, likely will be with [facility]. Review of Systems Review of Systems: Unobtainable due to cognitive status Physical Exam Constitutional: + ill appearing, + altered mental status , + behavioral limitations and + lethargic Eyes: PERRL ENMT: dentition intact, MM sl dry, no obvious thrush Neck: normal visual inspection Respiratory: + labored breathing (at times) and symme tric chest movement Cardiovascular: Rate/Rhythm: regular rate and regular rhythm Gastrointestinal (Abdomen): Inspection/Auscultation: + abdomen distended and + hyperactive bowel sounds Percussion/Palpation: abdomen soft Musculoskeletal: resting peacefully in bed Skin: + turgor decreased and + pallor Neurologic: lethargic and occ agitated unable to follow commands Results & Data Vital Signs (Past 12 Hours) Vital Signs Temp O2 Del Method O2 Flow Rate 06/19/25 23:44 Nasal Cannula 3 06/19/25 21:39 37.2 C PG Care Time/CCT Total # of Minutes Spent Total Time Spent: 45 Total Time Spent with Patient: Total time spent is greater than 50% in coordination of care (as documented) at patient's floor/unit and/or counseling patient: [place]oding [place] [address] SUB INP/OBS CARE 2/35MIN Patient Type Established History Comprehensive Exam Comprehensive Medical Decision Making High Complexity Diagnoses Agitation R45.1 Dyspnea and respiratory abnormalities R06.00; R06.89 Weakness generalized R53.1 Lethargy R53.83 Palliative care by specialist Z51.5
--- NOTE | 2025-06-20 11:46 | Discharge Summary ---
Discharge Summary Date of Service June 20, 2025 Principal Dx & Hospital Course #1 = Principal Diagnosis (1) Urinary tract infection: (2) Acute kidney injury: (3) Pleural effusion: (4) Type 2 diabetes mellitus: (5) Ambulatory dysfunction: (6) Altered mental status: Plan 89-year-old male PMHx CKD, T2DM, BPH with obstruction, and chronic UTIs presenting with vomiting and feeling ill starting the night CAMPGROUND HAND. ED evaluation is concerning for evidence of ROGER and presence of UTI, with prior culture growing out Pseudomonas. Patient was admitted for ROGER and UTI, but over the course of his hospital stay he developed hospital-acquired delirium. He then began to exhibit EPS after receiving antipsychotics following an aggressive episode. He has a continued hospital day due to altered mental status without return to baseline. #MANAGER BILINGUAL - family met with palliative care again on 06/19/25 and decision was made to transition to MANAGER BILINGUAL - all non-essential meds discontinued - pt accepted to [facility] on hospice - discharged on Fentanyl patch, hydromorphone SL, lorazepam SL, bisacodyl MD - met with pt's and his [id number]. all questions answered See below for further details on current hospitalization problem list. #Hospital-acquired delirium | suspected Lewy body dementia | agitation | Polypharmacy Recurrent episodes of agitation/aggression while in the hospital Given waxing and waning of symptoms, suspect hospital-acquired delirium + polypharmacy are primary contributors Reglan, quetiapine, and olanzapine have been discontinued due to concern for EPS symptoms Bupropion decreased from 300mg -> 150mg daily -> discontinued (pt not taking it at all) For hospital acquired delirium: recommend sleep-wake cycle, rehydration when possible, and supportive care Family presence appreciated Avoid further chemical sedation where possible Non-violent physical restraints required on 06/15 - mitts + soft limb wrist restraints bilaterally (later removed) Ativan 0.5 mg IV q8h PRN for agitation Head CT on 06/13 revealed no acute findings Brain MRI without contrast did not reveal any acute stroke, but did reveal hydrocephalus (see below) EEG awake/drowsy without evidence of encephalopathy or epileptiform abnormalities appreciated Palliative care consult appreciated Patient's is planning to bring in hid advanced directive Follow-up family meeting schedule for Tuesday 06/19 #Hydrocephalus Brain MRI conducted on the evening of 06/15 did not reveal any acute stroke, but did reveal hydrocephalus (see below) Report recommended a neurosurgical consult for ventriculostomy shunt placement Patient would not be a candidate for a large-volume LP at this time for several reasons: (1) He was previously on aspirin and last took it on the morning of 06/13; would need 5 days off aspirin (2) He exhibits agitation and is not easily re-directable, thus would create concern during needle placement Reached out to [facility] neurosurgery on the morning of 06/15, who recommended further workup before transfer Unclear at this time if this is hydrocephalus ex vacuo vs. NPH Reached out to both neurology and radiology teams on 06/15 to review imaging While it is difficult to make this distinction on imaging, both parties were in favor of hydrocephalus ex vacuo over NPH given patient's advanced age and microvascular dementia Neurology consult appreciated This may be more in the alignment with Lewy body dementia Avoid further exposure to neuroleptic medication/atypicals Try to limit utilization of lorazepam when possible Spouse does not believe he has been exhibiting urinary incontinence making NPH less likely Candidacy for EXERCISE PHYSIOLOGY PROFESSOR shunt to be considered on an outpatient basis; family is not interested in pursuing diagnosis of NPH any further at this time #Dysphagia (improving) | T2DM Patient was n.p.o. and did not have any food for approximately 48 to 72 hours, before exhibiting drastic improvement on 06/16 Parenteral nutrition started on 06/16 Drop in sodium, potassium, and phosphorus on 06/17; ? concern for re-feeding syndrome Speech therapy consult appreciated Questionable if he will be able to accept his p.o. intake; concern for aspiration + regression Will plan for overlap of parenteral nutrition with a trial of pured diet on the evening of 06/16 and 06/17 GOAL to get patient off of PPN on 06/18 if tolerating PO intake Pharmacy glycemic consult appreciated Continue BSG checks q6h in the setting of poor PO intake Convert PO to IV meds where possible Metoprolol tartrate 5 mg IV q12h + additional doses for sustained HR >130bpm Protonix 40 mg IV BID Acetaminophen 1000 mg PRN Most recent A1C at 7.2% in 04/2025 H/o DMT2, at home regimen include pioglitazone and semaglutide (hold while inpatient) #Hypophosphatemia Low phosphorus at 1.7 on 06/17 Sodium phosphorus 15 mmol IV x 1 #HFpEF Patient was recently admitted to [facility] "weeks ago" for such and was treated with Lasix and ultimately discharged. H/o CHF per . Echocardiogram on 06/08/2025 revealed LVEF at 60 to 65% Patient began developing bibasilar crackles and wheezing after receiving IV fluids while n.p.o. CXR on 06/16 revealed cardiomegaly with mild interstitial edema consistent with CHF D/c fluids Daily weights Strict I&O monitoring Close monitoring of respiratory status #Extrapyramidal symptoms (improving) Patient began exhibiting extrapyramidal symptoms on the morning of 06/13 (involuntary muscle jerks/spasms, motor restlessness, etc.); received olanzapine and Seroquel the night prior Patient received Benadryl 62.5 mg IV on 06/13 Patient received Benadryl 50 mg IV on 06/14 #Orthostatic hypotension | Dizziness | N/V | suspected gastroparesis (on hold) N/V may be secondary to orthostasis vs vertigo ( reports hx) vs underlying gastroparesis/on semaglutide. On 06/09 he had episode w/ PT where he was ambulating, became pale/dizzy & got back to bed. Had an episode of emesis. Was unable to get BP at that time secondary to machine malfunction. Following event, started Midodrine 2.5mg TID Still experiencing nausea/vomiting on 06/11 Reglan discontinued (as above) Compazine 5 mg IV q6h PRN for nausea/vomiting #Ambulatory dysfunction (on hold) PT/OT evaluations appreciated Recommending acute rehab upon discharge Fall precautions CM following Referrals out to [facility], [facility], and [facility]; awaiting responses Given patient require IM olanzapine on 06/12, suspect this will affect discharge planning #UTI (resolved) While metabolic encephalopathy was initially within differential for patient's altered mental status, do not feel that his main contributor at this time CTAP: significant wall thickening of urinary bladder which may be due to decompression, chronic outlet obstruction, and/or cystitis UCx on 06/06 consistent with pansensitive pseudomonas Patient received cefepime 2000 mg IV x 4 days Continue ciprofloxacin IV x 7 days (to be completed on 06/17) Continue dutasteride Tylenol PRN for pain/fever #ROGER (resolved) Creatinine 2.42 on admission --> 1.40 on 06/17 Likely secondary to obstruction/UTI on admission Daily Adan catheter management Baseline creatinine around ~1.6 Bladder scan PRN #Afib- EKG at admission Afib, rate controlled; Watchman completed in February 2025; On ASA, metoprolol MD aspirin 300mg x 1 #HLD- Atorvastatin #Psych- Bupropion #GERD- Omeprazole Dispo: discharged to [facility] VTE Prophylaxis: comfort care Admission HPI Per Admitting Provider 89-year-old male PMHx CKD, T2DM, BPH with obstruction, and chronic UTIs presenting with vomiting and feeling ill starting the night CAMPGROUND HAND. He was seen by his urologist on 06/06/2025 and a catheter was placed. He is currently being treated for UTI with Bactrim as outpatient. Pt's helps to provide a majority of the history. Reports that in January 2025, he had a hip surgery and after that was at [facility] for recovery. When at [facility], he had his first UTI and was treated with Doxy and Cipro. Once getting home from [facility], he continued to appear ill so his brought him to the PCP where he was diagnosed again with another UTI and started on Keflex. The week CAMPGROUND HAND, he was again seen by PCP and was tested for UTI which again came back positive. He was started on doxycycline which he took 4-5 doses of. He was seen by his urologist the day CAMPGROUND HAND (06/06/2025) where he was started on Bactrim for a confirmed UTI. Patient is taking 2 doses of his Bactrim. His states that he is "so sick" since starting to have UTIs. He did have episodes of vomiting the night CAMPGROUND HAND and has been very weak. Also complaining of anorexia giving not feeling well. He did not have any fevers or chills. He does occasionally have SOB and was admitted at the [facility] "a few weeks ago" for "CHF" and was treated with furosemide which she takes daily. He does not feel SOB at this time, but does occasionally get swelling in his bilateral lower extremities. He had a Watchman procedure done in February [address] Barry at [facility], no longer on anticoagulation for Afib. Uses walker for ambulation, used the day of arrival but his states that she had to follow him with a chair because she was concerned that he was going to fall over since he has been so weak. Overall denies chest pain, SOB, palpitations, abdominal pain, diarrhea/constipation, numbness/tingling, fever/chills, URI symptoms, syncope, or falls. He feels that he is ready to eat. His notes that they have been 44 years, and unfortunately during the visit the patient's answered a phone call to inf orm them that their daughter who lives in [place] had a heart attack earlier in the day. We discussed this briefly, and offered prayer together for the patiet and daughter's healing. Pt is with catheter in place. It was replaced in the ED. ED evaluation reveals CBC without leukocytosis, H&H 11.4/34.1; CMP sodium 133, creatinine 2.42, BUN 39, glucose 145; procalcitonin 0.07; UA positive for infection; CTAP wall thickening of urinary bladder, brachytherapy beads in prostate gland, trace pleural effusions/interstitial lung disease; CXR WNL; EKG A-fib at 79 bpm.; Provided with 1L NSS, lidocaine jelly, and cefepime 2 g IV in ED. Please see Dr. Anglin's attestation for adjustments/additions to treatment plan. Discharge Plan Discharge Items Patient Disposition: Transfer Detention Fac Reason For Visit: UTI, ROGER Discharge Diagnosis: Comfort Measures Condition on Discharge: Fair Activity: As commented below Activity Comment: as tolerated Non-emergency contact: Primary Care Provider Call non-emergency contact if: your symptoms worsen Follow-up/Referrals: Norberto Walden MD [Primary Care Provider] - Diet: Carb Consistent or DM2 Diet Texture: Pureed (blended smooth) Addtl Attending Provider Instructions: Contact [facility] for further questions Pending Studies at Discharge: No Stand-Alone Forms: My [facility] Skilled Items Patient informed of condition?: Yes DNR: Yes Discharge Level of Care: Other Communicable Disease: No Discharge Prognosis: Stable Lines: None Urinary Catheter: Yes Medications and DC Order Prescriptions: New fentanyl 12 mcg/hr Patch 72 Hour 1 patch transdermal Q3D Qty: 5 0RF bisacodyl 10 mg Suppository 10 mg MD QAM Qty: 12 0RF lorazepam 2 mg/mL concentrate See Rx Instructions .ROUTE .COMPLEX PRN (Reason: anxiety) Qty: 30 0RF Rx Instructions: 0.5mg - 2mg SL q4h prn hydromorphone 1 mg/mL liquid See Rx Instructions .ROUTE .COMPLEX PRN (Reason: pain, dyspnea) Qty: 30 0RF Rx Instructions: 0.5mg-2mg SL q2h prn glycopyrrolate 1 mg/5 mL (0.2 mg/mL) solution See Rx Instructions .ROUTE .COMPLEX Qty: 30 0RF Rx Instructions: 0.4mg SL q6h prn for secretions Discontinued dutasteride 0.5 mg capsule 0.5 mg PO DAILY Qty: 90 3RF Patient Comments: QAM tadalafil 5 mg tablet 5 mg PO DAILY Qty: 90 3RF Patient Comments: HS Rx Instructions: take one tablet by mouth every day furosemide 20 mg tablet 20 mg PO DAILY atorvastatin 40 mg tablet 40 mg PO DAILY Rybelsus 7 mg tablet 7 mg PO DAILY aspirin 81 mg tablet 81 mg PO DAILY clopidogrel [Plavix] 75 mg tablet 0 mg PO DAILY Patient Comments: Spouse unsure of this med at this date/time. Original Directions: 75mg by mouth once daily. 06/07/25 sulfamethoxazole-trimethoprim [Bactrim DS] 800-160 mg tablet 1 tab PO BID Qty: 30 0RF multivitamin Tablet 1 tab PO QAM pioglitazone 45 mg Tablet 45 mg PO QAM magnesium oxide 400 mg magnesium Tablet 400 mg PO BID metoprolol succinate 50 mg Tablet Extended Release 24 Hr 50 mg PO DAILY omeprazole [Prilosec] 20 mg Capsule,Delayed Release(Dr/Ec) 20 mg PO BID bupropion HCl [Wellbutrin XL] 300 mg Tablet Extended Release 24 Hr 300 mg PO QAM Rx Instructions: Take w/ 150mg to equal 450mg bupropion HCl [Wellbutrin XL] 150 mg Tablet Extended Release 24 Hr 150 mg PO QAM Rx Instructions: Take w/ 300mg to equal 450mg methenamine hippurate 1 gram tablet 0 g PO BID Patient Comments: Currently on hold while pt is taking Bactrim. Original Directions: 1g by mouth twice daily. 06/07/25 Rx Instructions: Currently on hold while pt is taking Bactrim. 06/07/25 Discharge Orders: Discharge Order (Routine); Ordered 06/20/25 Ordered By: Chelsy Delgado Admission Data Admit Date/Time: 06/07/25 20:17 Attending Provider: Chelsy Delgado Admit Provider: Neyda Anglin Primary Care Provider: Norberto Walden Other Providers: [facility]; [place],[facility]; [facility] [place]; Neyda Anglin; Stephane Busby; Nikky Aguirre; Althea Alfredo; Kang [facility] Stay Data Consultations 06/07/25 19:12 ED Decision to Admit Stat 06/15/25 10:04 Consult Neurology Stat 06/15/25 14:02 Consult Palliative Care Routine Diagnostic Imagining Performed 06/07/25 CT abd pelvis wo con Stat 06/13/25 09:[address] [CT head/brain wo con] Urgent 06/14/25 17:47 MR brain seizure wo con Routine Pending Results Patient Have Any Pending Studies at Discharge: No Discharge Instructions Given to Patient (Per Discharging Provider) Contact [facility] for further questions Total Time Total Time Spent Total Time Spent (In Minutes): 55 Coding Level of Care Code 56590 INP/OBS DISCH >30 MIN Diagnoses Urinary tract infection N39.0 Acute kidney injury N17.9 Pleural effusion J90 Type 2 diabetes mellitus E11.9 Ambulatory dysfunction R26.2 Altered mental status R41.82
--- NOTE | 2025-06-21 15:26 | Coding Query ---
CONGESTIVE HEART FAILURE To Promote full compliance with coding requirements relating to patient care, physician participation is requested in all cases of school photographer uncertainty. Please assist us with the following questions. A diagnosis of Congestive Heart Failure is documented in the patient's medical record. To accurately code this diagnosis and to compare patient severity, we ask that you specify the type of heart failure by placing an X within the parenthesis (x). DIASTOLIC HEART FAILURE ( ) Acute ( ) Chronic (x) Acute on Chronic ( ) Rheumatic ( ) Unknown Was the CHF Present On Admission? Please check the appropriate box: ( ) Present on Admission ( ) Not Present On Admission (x ) Clinically undetermined Thank you Aparna DALY
--- NOTE | 2025-06-21 15:29 | Coding Query ---
CODING QUERY To promote full compliance with coding requirements relating to patient care, provider participation is requested in all cases of political theory professor uncertainty. Please assist us with the question(s) below: Coding Question(s): Several notes in patient chart state "microvasular dementia" and "Lewey Body Dementia". Please clarify which is diagnosed. Physician's Response(s): ( ) Vascular Dementia ( ) POA ( ) Not POA ( ) Lewey Body Dementia ( ) POA ( ) Not POA ( X ) Other __It's possible patient has both a combination of Vascular dementia vs Lewy Body Dementia. Neurology suspects that patient might have Lewy Body, however, there are vascular changes (please specify) Thank you Aparna Cobos Principal Diagnosis: "that condition established after study, to be chiefly responsible for occasioning the admission of the patient to the hospital for care." Co-Existing Principal Diagnosis: "when two or more diagnoses equally meet the criteria for principal diagnosis as determined by the circumstances of admission, diagnostic work up, and/or therapy provided, and the Alphabetic Index, Tabular List, or another coding guideline does not provide sequencing direction, any one of the diagnoses may be sequenced first." "When the physician has documented what appears to be a current diagnosis in the body of the record, but has not included the diagnosis in the final diagnostic statement, the physician should be asked whether the diagnosis should be added." (Source Coding Clinic 2 QTR90. p3-4) MALIKA
== END 2025-06-20 14:00 | disposition home or self-care (01) | DRG 689 ==
LOC: ED 13:00 → 3E 20:17 → SUATTDRO 20:17 → 3E 22:12 → 2S 06-14 11:26 → 2E 06-18 18:33